=== PATIENT | male | born 1985 | race Caucasian/White ===

== ENCOUNTER → 2018-01-18 | Outpatient (CLI) | payer OTHER ==
--- NOTE | 2018-01-18 14:50 | XR ---
EXAMINATION TYPE: XR calcaneus 2V LT DATE OF EXAM: 01/18/2018 COMPARISON: NONE HISTORY: Left heel pain TECHNIQUE: 2 views of the left os calcis are submitted. FINDINGS: There is dorsal calcaneal spur identified. No plantar calcaneal spur is seen. No evidence f or fracture or osseous lesion. Soft tissues are unremarkable. IMPRESSION: Dorsal calcaneal spur.
== END ==
LOC: RADXRMAIN 14:20
PROVIDERS: ATTEND Internal Medicine
DX: M77.32 Calcaneal spur, left foot (principal)

== ENCOUNTER 2023-01-10 15:18 | Inpatient (IN) | payer OTHER ==
--- NOTE | 2023-01-10 15:52 | ED ---
Neuro HPI - General Chief Complaint: Neuro Symptoms/Deficit Stated Complaint: left arm weakness, Fall Time Seen by Provider: 01/10/23 15:35 Source: patient, RN notes reviewed Mode of arrival: ambulatory Limitations: no limitations - History of Present Illness Is the patient presenting with stroke symptoms?: Yes Initial Comments: 37-year-old male with a benign past medical history himself but a family history of CVA his dad had 2 CVAs in his 50's who presents with 2 days of left facial weakness difficulty with speech and difficulty with eating states he drools on the left side of his face also has difficulty moving his left arm which is not normal for him. The patient reported to triage nursing that he did have some trouble with his left leg this morning he did stumble it seemed to have some left leg weakness. No other symptoms reported no trauma no headache blurry vision nausea vomiting sweats or other symptoms. Additional information patient is supposed be on blood pressure medication but has not been taking them. Location: speech, left face, left arm, left leg - Related Data Allergies/Adverse Reactions: Allergies Allergy/AdvReac Type Severity Reaction Status Date / Time No Known Allergies Allergy Verified 01/10/23 15:27 Review of Systems ROS Statement: Those systems with pertinent positive or pertinent negative responses have been documented in the HPI. ROS Other: All systems not noted in ROS Statement are negative. General Exam - General Exam Comments Initial Comments: This a well-developed well-nourished awake alert oriented 4 male Limitations: no limitations General appearance: alert, anxious Head exam: Present: atraumatic, normocephalic, normal inspection Eye exam: Present: normal appearance, PERRL, EOMI. Absent: scleral icterus, conjunctival injection, periorbital swelling ENT exam: Present: other (Evidence of mild left facial asymmetry with some fore head involvement on the left) Neck exam: Present: normal inspection, full ROM, other (No stridor JVD or bruit). Absent: tenderness, meningismus, lymphadenopathy Respiratory exam: Present: normal lung sounds bilaterally. Absent: respiratory distress, wheezes, rales, rhonchi, stridor Cardiovascular Exam: Present: regular rate, normal rhythm, normal heart sounds. Absent: systolic murmur, diastolic murmur, rubs, gallop, clicks GI/Abdominal exam: Present: soft, normal bowel sounds. Absent: distended, tenderness, guarding, rebound, rigid Extremities exam: Present: normal inspection, normal capillary refill, other (Patient does demonstrate evidence of motor movement of his left upper extremity compared to the right he does demonstrate evidence of some drift greater effort to move the left arm against gravity.). Absent: full ROM, tenderness, pedal edema, joint swelling, calf tenderness Back exam: Present: normal inspection Neurological exam: Present: alert, oriented X3, motor sensory deficit ((Asymmetry is noted above left upper extremity weakness as noted) Psychiatric exam: Present: normal affect, normal mood Skin exam: Present: warm, dry, intact, normal color. Absent: rash Stroke MDM - Lab Data Result diagrams: 01/10/23 16:10 01/10/23 16:10 Lab Results 01/10/23 01/10/23 01/10/23 Range/Units 16:10 16:10 16:10 WBC 10.8 H (3.8-10.6) k/uL RBC 5.64 (4.30-5.90) m/uL Hgb 15.0 (13.0-17.5) gm/dL Hct 46.1 (39.0-53.0) % MCV 81.8 (80.0-100.0) fL MCH 26.6 (25.0-35.0) pg MCHC 32.5 (31.0-37.0) g/dL RDW 14.1 (11.5-15.5) % Plt Count 189 (150-450) k/uL MPV 8.0 Neutrophils % 75 % Lymphocytes % 19 % Monocytes % 4 % Eosinophils % 1 % Basophils % 0 % Neutrophils # 8.1 H (1.3-7.7) k/uL Lymphocytes # 2.0 (1.0-4.8) k/uL Monocytes # 0.5 (0-1.0) k/uL Eosinophils # 0.1 (0-0.7) k/uL Basophils # 0.0 (0-0.2) k/uL PT 10.0 (10.0-12.5) sec INR 0.9 (<1.2) APTT 25.4 (22.0-30.0) sec Sodium 137 (137-145) mmol/L Potassium 4.1 (3.5-5.1) mmol/L Chloride 102 (98-107) mmol/L Carbon Dioxide 25 (22-30) mmol/L Anion Gap 10 mmol/L BUN 10 (9-20) mg/dL Creatinine 0.72 (0.66-1.25) mg/dL Est GFR (CKD-EPI)AfAm >90 (>60 ml/min/1.73 sqM) Est GFR (CKD-EPI)NonAf >90 (>60 ml/min/1.73 sqM) Glucose 100 H (74-99) mg/dL Calcium 9.4 (8.4-10.2) mg/dL Magnesium 2.0 (1.6-2.3) mg/dL Total Bilirubin 0.5 (0.2-1.3) mg/dL AST 33 (17-59) U/L ALT 33 (4-49) U/L Alkaline Phosphatase 56 (38-126) U/L Creatine Kinase 192 H (55-170) U/L Troponin I (0.000-0.034) ng/mL Total Protein 7.4 (6.3-8.2) g/dL Albumin 4.2 (3.5-5.0) g/dL TSH 1.410 (0.465-4.680) mIU/L 01/10/23 Range/Units 16:10 WBC (3.8-10.6) k/uL RBC (4.30-5.90) m/uL Hgb (13.0-17.5) gm/dL Hct (39.0-53.0) % MCV (80.0-100.0) fL MCH (25.0-35.0) pg MCHC (31.0-37.0) g/dL RDW (11.5-15.5) % Plt Count (150-450) k/uL MPV Neutrophils % % Lymphocytes % % Monocytes % % Eosinophils % % Basophils % % Neutrophils # (1.3-7.7) k/uL Lymphocytes # (1.0-4.8) k/uL Monocytes # (0-1.0) k/uL Eosinophils # (0-0.7) k/uL Basophils # (0-0.2) k/uL PT (10.0-12.5) sec INR (<1.2) APTT (22.0-30.0) sec Sodium (137-145) mmol/L Potassium (3.5-5.1) mmol/L Chloride (98-107) mmol/L Carbon Dioxide (22-30) mmol/L Anion Gap mmol/L BUN (9-20) mg/dL Creatinine (0.66-1.25) mg/dL Est GFR (CKD-EPI)AfAm (>60 ml/min/1.73 sqM) Est GFR (CKD-EPI)NonAf (>60 ml/min/1.73 sqM) Glucose (74-99) mg/dL Calcium (8.4-10.2) mg/dL Magnesium (1.6-2.3) mg/dL Total Bilirubin (0.2-1.3) mg/dL AST (17-59) U/L ALT (4-49) U/L Alkaline Phosphatase (38-126) U/L Creatine Kinase (55-170) U/L Troponin I <0.012 (0.000-0.034) ng/mL Total Protein (6.3-8.2) g/dL Albumin (3.5-5.0) g/dL TSH (0.465-4.680) mIU/L - NIH Stroke Scale 1a. Level of Consciousness: (0) alert 1b. LOC Questions: (0) answers correctly 1c. LOC Commands: (0) performs tasks correctly 2. Best Gaze: (0) normal 3. Visual: (0) no visual loss 4. Facial Palsy: (2) partial paralysis 5a. Motor Arm Left: (1) drift 5b. Motor Arm Right: (0) no drift 6a. Motor Leg Left: (1) drift 6b. Motor Leg Right: (0) no drift 7. Limb Ataxia: (0) absent 8. Sensory: (0) normal 9. Best Language: (0) no aphasia 10. Dysarthria: (0) normal 11. Extinction/Inattention: (0) no abnormality - Medical Decision Making I did discuss findings with the patient also with Wilda bhandari for Dr. Diaz and also Dr. Holguin from neurology. Patient be admitted for inpatient evaluation treatmentWas pt. sent in by a medical professional or institution (, PA, COMPLAINT COORDINATOR, urgent care, hospital, or detention...) When possible be specific @ -No Did you speak to anyone other than the patient for history (EMS, parent, family, police, friend...)? What history was obtained from this source @ -No Did you review nursing and triage notes (agree or disagree)? Why? @ -I reviewed and agree with nursing and triage notes Were old charts reviewed (outside hosp., previous admission, EMS record, old EKG, old radiological studies, urgent care reports/EKG's, detention records)? Report findings @ -No old charts were reviewed Differential Diagnosis (chest pain, altered mental status, abdominal pain women, abdominal pain men, vaginal bleeding, weakness, fever, dyspnea, syncope, headache, dizziness, GI bleed, back pain, seizure, CVA, palpatations, mental health, musculoskeletal)? @ -CVA, Pollack's palsy with left-sided extremity weakness EKG interpreted by me (3pts min.). @ -As above EKG interpreted by me sinus rhythm with sinus arrhythmia the rate was 76. Interval 172 QRS duration 104 QT since QTC 378/409 incomplete right bundle-branch block moderate voltage criteria for LVH X-rays interpreted by me (1pt min.). @ -Chest x-ray interpreted by me no evidence of acute process CT interpreted by me (1pt min.). @ -CT brain and CT angios turbid by me no evidence of acute obstruction or processes U/S interpreted by me (1pt. min.). @ -None done What testing was considered but not performed or refused? (CT, X-rays, U/S, labs)? Why? @ -None What meds were considered but not given or refused? Why? @ -None Did you discuss the management of the patient with other professionals (professionals i.e. , PA, COMPLAINT COORDINATOR, lab, RT, psych nurse, rn social work, fire fighter [employer], teacher, bomb squad officer, telephonic nurse case manager)? Give summary @ -Wilda I refer Dr. Diaz Was smoking cessation discussed for >3mins.? @ -No Was critical care preformed (if so, how long)? @ -31 minutes Were there social determinants of health that impacted care today? How? (Homelessness, low income, unemployed, alcoholism, drug addiction, transportation, low edu. Level, literacy, decrease access to med. care, alf, rehab)? @ -No Was there de-escalation of care discussed even if they declined (Discuss DNR or withdrawal of care, Hospice)? DNR status @ -No What co-morbidities impacted this encounter? (DM, HTN, Smoking, COPD, CAD, Cancer, CVA, ARF, Chemo, Hep., AIDS, mental health diagnosis, sleep apnea, morbid obesity)? @ -Hypertension Was patient admitted / discharged? Hospital course, mention meds given and route, prescriptions, significant lab abnormalities, going to OR and other pertinent info. @ -hospital course the patient was admitted to the hospital with neurology consultation Undiagnosed new problem with uncertain prognosis? @ -CVA Drug Therapy requiring intensive monitoring for toxicity (Heparin, Nitro, Insulin, Cardizem)? @ -No Were any procedures done? @ -No Diagnosis/symptom? @ -Acute CVA, hypertension Acute, or Chronic, or Acute on Chronic? @ -Acute Uncomplicated (without systemic symptoms) or Complicated (systemic symptoms)? @ -default Side effects of treatment? @ -No Exacerbation, Progression, or Severe Exacerbation? @ -No Poses a threat to life or bodily function? How? (Chest pain, [place], [place], pneumonia, PE, COPD, DKA, ARF, appy, cholecystitis, CVA, Diverticulitis, Homicidal, Suicidal, threat to staff... and all critical care pts) @ -CVA, untreated hypertension - Radiology Data interpreted by me: CT plane brain negative for acute process CT angios again no acute process seen x-ray negative for acute process also interpreted by me - EKG Data -: EKG Interpreted by Me (Sinus rhythm a 76 MN interval 172 QRS duration 104 QT since QTC 370/49 inco) Past Medical History Past Medical History: Hypertension History of Any Multi-Drug Resistant Organisms: None Reported Past Surgical History: No Surgical Hx Reported Past Psychological History: No Psychological Hx Reported Smoking Status: Never smoker Past Alcohol Use History: None Reported Past Drug Use History: None Reported Course Vital Signs 01/10/23 01/10/23 15:24 17:32 Temperature 98 F 98.2 F Pulse Rate 82 67 Respiratory 18 16 Rate Blood Pressure 176/115 156/82 O2 Sat by Pulse 98 97 Oximetry - Reevaluation(s) Reevaluation #1: 01/10/23 18:20 I did reevaluate patient on multiple occasions no progression of his findings Reevaluation #2: 01/10/23 18:28 The patient was not a candidate for alteplase as the onset was 2 days ago and therefore not clinically indicated Critical Care Time Critical Care Time: Yes Total Critical Care Time: 31 Disposition Clinical Impression: Cerebrovascular accident (CVA) Disposition: ADMITTED IP TO THIS HOSP Condition: Stable Referrals: None,Stated [Primary Care Provider] - 1-2 days Decision Date: 01/10/23 Decision Time: 18:15
[2023-01-10 16:55] LABS: Basophils % (A) 0 %; Eosinophils # (A) 0.1 k/uL (0-0.7); Eosinophils % (A) 1 %; HCT 46.1 % (39.0-53.0); Lymphocytes % (A) 19 %; MCH 26.6 pg (25.0-35.0); MCHC 32.5 g/dL (31.0-37.0); MCV 81.8 fL (80.0-100.0); Monocytes # (A) 0.5 k/uL (0-1.0); Monocytes % (A) 4 %; Neutrophils # (A) 8.1 k/uL (1.3-7.7); Neutrophils % (A) 75 %; Platelet Count 189 k/uL (150-450); RBC 5.64 m/uL (4.30-5.90); RDW 14.1 % (11.5-15.5); WBC 10.8 k/uL (3.8-10.6)
[2023-01-10 16:58] LABS: ALT 33 U/L (4-49); AST 33 U/L (17-59); African American GFR (CKD) >90 (>60 ml/min/1.73 sqM); Albumin 4.2 g/dL (3.5-5.0); Alkaline Phosphatase 56 U/L (38-126); Anion Gap 10 mmol/L; Blood Urea Nitrogen 10 mg/dL (9-20); Calcium 9.4 mg/dL (8.4-10.2); Carbon Dioxide 25 mmol/L (22-30); Chloride 102 mmol/L (98-107); Creatine Kinase 192 U/L (55-170); Glucose 100 mg/dL (74-99); Non-African American GFR(CKD) >90 (>60 ml/min/1.73 sqM); Potassium 4.1 mmol/L (3.5-5.1); Sodium 137 mmol/L (137-145); Total Bilirubin 0.5 mg/dL (0.2-1.3); Total Protein 7.4 g/dL (6.3-8.2)
[2023-01-10 17:02] LABS: INR 0.9 (<1.2); Partial Thromboplastin Time 25.4 sec (22.0-30.0)
--- NOTE | 2023-01-10 17:24 | XR ---
EXAMINATION TYPE: XR chest 2V DATE OF EXAM: 01/10/2023 COMPARISON: NONE HISTORY: Altered mental status TECHNIQUE: Frontal and lateral views of the chest are obtained. FINDINGS: There is no focal air space opacity, pleural effusion, or pneumothorax seen. The cardiac silhouette size is within normal limits. There is a healed right clavicular fracture IMPRESSION: No acute cardiopulmonary process.
--- NOTE | 2023-01-10 17:26 | CT ---
EXAMINATION TYPE: CT brain wo con DATE OF EXAM: 01/10/2023 COMPARISON: None HISTORY: LEFT FACIAL DROOP CT DLP: 1178 mGycm. Automated Exposure Control for Dose Reduction was Utilized. TECHNIQUE: CT scan of the head is performed without contrast. FINDINGS: There is no acute intracranial hemorrhage, mass effect, or midline shift identified. The ventricles and sulci are within normal limits in size. The intraorbital contents are normal and symm etric. There is a mucous retention cyst or polyp in the right maxillary sinus otherwise the paranasal sinuse s and mastoid air cells are well aerated. IMPRESSION: No acute intracranial hemorrhage, mass effect, or midline shift is seen.
--- NOTE | 2023-01-10 17:29 | CT ---
EXAMINATION TYPE: CT angio head neck DATE OF EXAM: 01/10/2023 HISTORY: left sided facial droop COMPARISON: None CT DLP: 1024 mGycm. Automated Exposure Control for Dose Reduction was Utilized. TECHNIQUE: CTA scan of the head and neck is performed with IV Contrast, patient injected with 65 mL of Isovue 370, axial images are obtained, coronal and sagittal reformatted images are reviewed. 3D re constructed images are created on an independent workstation and reviewed. FINDINGS: The brachiocephalic origins are widely patent without significant stenosis. There is no stenosis of the common or internal carotid arteries within the neck. The left vertebral a rtery is dominant but there is no vertebral artery stenosis. Intracranially there is no segmental occlusion, sizable aneurysm sac or vascular malformation. IMPRESSION: No significant abnormality is seen. NASCET criteria was used in interpretation of this exam?
[2023-01-10] MEDS ORDERED: NALOXONE 0.4 MG/ML 1 ML VIAL IV PRN (18:56)
[2023-01-10] MEDS ORDERED: ASPIRIN 81 MG PO STA (18:58)
[2023-01-10] MEDS ORDERED: CLOPIDOGREL 75 MG TAB PO STA (18:58)
[2023-01-10] MEDS: SODIUM CHLORIDE 0.9% 1,000 ML IV SCH (20:08)
[2023-01-10] MEDS: ACETAMINOPHEN TAB 325 MG TAB PO PRN (23:38)
[2023-01-11] MEDS: ACETAMINOPHEN TAB 325 MG TAB PO PRN ×2 (05:21→17:57)
[2023-01-11] MEDS: ATORVASTATIN 40 MG TAB PO SCH (10:22)
[2023-01-11] MEDS: ASPIRIN 81 MG PO SCH (10:22)
--- NOTE | 2023-01-11 11:50 | P.HPIM ---
History of Present Illness H&P Date: 01/11/23 Chief Complaint: Weakness * 37-year-old gentleman with past medical history of hypertension, obesity presents to the emergency department with complaints of left-sided facial d elisha and dysarthria and dysphagia. Patient stated he had difficulty moving left and had drooling on the face. Patient stated that upon admission [employer] health insurance on 01/10/23 patient had gait issues as well as left-sided weakness. He denies following, he denies vision changes headache, nausea, vomiting, abdominal pain, diarrhea. Patient said he was at work and had left-sided weakness was unable to sign through his left hand issue and is usually left- handed * Workup initiated in ER including CT head which was negative for intracranial process * CT angina head and neck negative for acute abnormality * Workup initiated in ER included serum chemistries which were WBC of 10.8 hemoglobin 15 platelet count of 189. PT/INR 0.9 * Serum chemistry showed sodium 137 potassium 4.1, nicely 25 BUN 10 creatinine 0.72 glucose 100 troponin negative TSH 1.4 REVIEW OF SYSTEMS: Dysarthria, weakness, left arm weakness unable to ambulate CONSTITUTIONAL: No fever, no malaise, no fatigue. HEENT: No recent visual problems or hearing problems. Denied any sore throat. CARDIOVASCULAR: No chest pain, orthopnea, PND, no palpitations, no syncope. PULMONARY: No shortness of breath, no cough, no hemoptysis. GASTROINTESTINAL: No diarrhea, no nausea, no vomiting, no abdominal pain. NEUROLOGICAL: Weakness on left side, facial droop HEMATOLOGICAL: Denies any bleeding or petechiae. GENITOURINARY: Denies any burning micturition, frequency, or urgency. MUSCULOSKELETAL/RHEUMATOLOGICAL: Denies any joint pain, swelling, or any muscle pain. ENDOCRINE: Denies any polyuria or polydipsia. PHYSICAL EXAMINATION: GENERAL: The patient is alert and oriented x3, obesity HEENT: Pupils are round and equally reacting to light. EOMI. CARDIOVASCULAR: S1 and S2 present. No murmurs, rubs, or gallops. PULMONARY: Chest is clear to auscultation, no wheezing or crackles. ABDOMEN: Soft, nontender, nondistended, normoactive bowel sounds. No palpable organomegaly. MUSCULOSKELETAL: No joint swelling or deformity. EXTREMITIES: No cyanosis, clubbing, or pedal edema. NEUROLOGICAL: Motor strength is 4 x 5 left upper extremity, 3 x 5 left lower extremity, left-sided facial droop, tongue deviated to left, right upper extremitystrength is 5 x 5 Past Medical History Past Medical History: Hypertension History of Any Multi-Drug Resistant Organisms: None Reported Past Surgical History: No Surgical Hx Reported Past Psychological History: No Psychological Hx Reported Smoking Status: Never smoker Past Alcohol Use History: None Reported Past Drug Use History: None Reported Medications and Allergies Home Medications Medication Instructions Recorded Confirmed Type No Known Home Medications 01/10/23 01/10/23 History Allergies Allergy/AdvReac Type Severity Reaction Status Date / Time No Known Allergies Allergy Verified 01/10/23 19:42 Physical Exam Vitals: Vital Signs Temp Pulse Resp BP Pulse Ox 01/11/23 08:01 98.8 F 97 18 149/99 98 01/11/23 03:22 90 20 155/95 98 01/10/23 21:47 85 18 155/83 99 01/10/23 20:03 64 20 150/94 99 01/10/23 18:32 75 18 150/78 99 01/10/23 17:32 98.2 F 67 16 156/82 97 01/10/23 15:24 98 F 82 18 176/115 98 Intake and Output 01/10/23 01/11/23 01/11/23 22:59 06:59 14:59 Output Total 600 Balance -600 Output: Urine 600 Other: # Voids 2 Weight 149.685 kg Results CBC & Chem 7: 01/10/23 16:10 01/10/23 16:10 Labs: Abnormal Lab Results - Last 24 Hours (Table) 01/10/23 01/10/23 Range/Units 16:10 16:10 WBC 10.8 H (3.8-10.6) k/uL Neutrophils # 8.1 H (1.3-7.7) k/uL Glucose 100 H (74-99) mg/dL Creatine Kinase 192 H (55-170) U/L Assessment and Plan Assessment: Assessment and plan * Facial drooping, left-sided weakness respect acute CVA * Hypertension * Morbid obesity * Patient admitted to medical floor with neuro checks, acute CVA rule out. Neurology consulted * In regards to CVA, CT head CT angiogram head and neck was negative, continue aspirin and Lipitor, every 4 hours neuro checks * MRI brain and echocardiogram ordered * Follow-up on TSH HbA1c levels * Lovenox for DVT prophylaxis * CODE STATUS is full code
[2023-01-11 13:46] LABS: Chol/HDL Ratio 4.46 Ratio; LDL Cholesterol,Calculated 111.4 mg/dL (0.0-131.0)
[2023-01-11] MEDS ORDERED: CLOPIDOGREL 75 MG TAB PO STA (14:27)
[2023-01-11] MEDS: methocarbamoL 500 MG TAB PO PRN (17:57)
[2023-01-11] MEDS: FAMOTIDINE 20 MG TAB PO SCH (20:40)
[2023-01-11 21:34] LABS: Appearance,Urine Clear (Clear); Bilirubin,Urine Negative (Negative); Blood,Urine Negative (Negative); Color,Urine Colorless; Glucose,Urine (UA) Negative (Negative); Ketones,Urine Negative (Negative); Leukocyte Esterase,Urine Negative (Negative); Nitrite,Urine Negative (Negative); PH, Urine 6.5 (5.0-8.0); Protein,Urine Negative (Negative); Specific Gravity,Urine 1.008 (1.001-1.035); Urobilinogen,Urine <2.0 mg/dL (<2.0)
[2023-01-11] MEDS: SODIUM CHLORIDE 0.9% 1,000 ML IV SCH ×2 (23:50)
--- NOTE | 2023-01-12 08:15 | P.CNNES ---
History of Present Illness Consult date: 01/11/23 Requesting physician: Jakob Reilly Reason for Consult: CVA, 2 days ago History of Present Illness: Patient is a 37-year-old left-handed male with history of hypertension, currently not on any medication, came to the hospital yesterday at 3:18 PM for strokelike symptoms. Patient states that his symptoms started on , 01/08/2023 with weakness of the left arm. He felt it was not working properly. Also had some slurred speech on Thursday. On Thursday, he toppled over trying to feed the cat. He had problem with balance, and caught several times to prevent fall. As his symptoms persisted, his ex- insisted him to go to the hospital. He is also noticing droopiness of the left side of the mouth. His ex- states that it feels like he is crying when talking. He has a delayed response. He still can walk to the bathroom. He denies any problem with the vision. Vital signs arrival blood pressure 176/115, which improved to 156/82, pulse rate 82 temperature 98.0. Blood test shows WBC 10.8 mobility 15.0, normal platelets. PT/PTT is normal, CMP is normal, CK 192, troponin negative, TSH normal. CT head revealed no acute intracranial hemorrhage, mass effect or midline shift. I personally reviewed CT head, and my review, there is possibility of subacute hypodensity in the right internal capsule. Chest x-ray is normal. EKG shows sinus rhythm with sinus arrhythmia. Patient was not a candidate for TPA, as he has symptoms present for over 48 hours. There was no large vessel occlusion. Patient has hypertension, was given prescription medication by Dr. Guo, but patient stopped taking it after a month. He denies diabetes. He does not know about cholesterol. He smoked 1 pack per week for 4-5 years, quit 6-7 years ago. Drinks alcohol only socially. Smokes marijuana. Review of Systems Constitutional: Reports chills (Not now), Reports weight gain, Denies fever Eyes: denies blurred vision, denies diplopia, denies pain Ears: left: decreased hearing, tinnitus (for 3 years), deny: ear discharge Ears, nose, mouth and throat: Denies headache, Denies sore throat Cardiovascular: Denies chest pain, Denies shortness of breath Respiratory: Denies cough, Denies excessive sputum Gastrointestinal: Reports nausea, Denies abdominal pain, Denies diarrhea, Denies vomiting Genitourinary: Reports incontinence (Last 2-3 days difficult to hold), Reports urinary frequency Musculoskeletal: Reports low back pain, Denies myalgias, Denies neck pain Integumentary: Denies pruritus, Denies rash Neurological: Reports as per HPI Psychiatric: Reports anxiety, Denies depression Endocrine: Reports fatigue, Reports weight change Past Medical History Past Medical History: Hypertension History of Any Multi-Drug Resistant Organisms: None Reported Past Surgical History: No Surgical Hx Reported Past Psychological History: No Psychological Hx Reported Smoking Status: Never smoker Past Alcohol Use History: None Reported Past Drug Use History: None Reported Medications and Allergies Home Medications Medication Instructions Recorded Confirmed Type No Known Home Medications 01/10/23 01/10/23 History Allergies Allergy/AdvReac Type Severity Reaction Status Date / Time No Known Allergies Allergy Verified 01/10/23 19:42 Physical Examination - Vital Signs Vital Signs: Vital Signs Temp Pulse Pulse Resp BP BP Pulse Ox 01/11/23 08:01 98.8 F 97 18 149/99 98 01/11/23 08:00 92 16 170/85 98 01/11/23 03:22 90 20 155/95 98 01/10/23 21:47 85 18 155/83 99 01/10/23 20:03 64 20 150/94 99 01/10/23 18:32 75 18 150/78 99 01/10/23 17:32 98.2 F 67 16 156/82 97 01/10/23 15:24 98 F 82 18 176/115 98 Intake and Output 01/10/23 01/11/23 01/11/23 22:59 06:59 14:59 Intake Total 180 Output Total 600 Balance -600 180 Intake: Oral 180 Output: Urine 600 Other: # Voids 2 Weight 149.685 kg Patient is a young male, in no acute distress. Patient is alert awake oriented to time place and person. Speech is mildly dysarthric and language functions are normal. Patient can name and repeat very well. Attention, concentration and fund of knowledge is adequate. Patient frequently gets emotional. On cranial nerve examination, pupils are equal, round and reacting to light, visual baptiste are full on confrontation, with no neglect on double simultaneous stimulation. Extraocular muscles are intact with no nystagmus. Face has left facial asymmetry. His tongue protrudes to the midline. Palatal elevation and sensation normal, hearing and shoulder shrug normal, facial sensation normal. On muscle strength testing, there is left pronator drift. The strength is (right/left) deltoid 5/5-, biceps 5/4-, triceps 5/4 to 4-, engine boss 5/4, hip flexion 5/4, ankle dorsiflexion 5/5. Deep tendon reflexes are symmetric to all over and plantars is downgoing on the right, upgoing on the left. Sensory to touch and temperature is equal with no neglect on double simultaneous stimulation. Cerebellar function showed slight ataxia for [id number] and [id number] testing only on the left side. Tone and bulk of muscles normal. Gait deferred.. On general examination, there is no carotid bruit or murmur, S1-S2 audible. Chest is clear on consultation. Abdomen is soft nontender. No organomegaly, bowel sounds present. Peripheral pulses are present. No peripheral edema. Results - Laboratory Findings CBC and BMP: 01/10/23 16:10 01/10/23 16:10 Abnormal Lab Findings: Abnormal Labs 01/10/23 01/10/23 16:10 16:10 WBC 10.8 H Neutrophils # 8.1 H Glucose 100 H Creatine Kinase 192 H Assessment and Plan Assessment: * Acute ischemic stroke with left hemiparesis. CT head revealed possibility of subacute stroke involving the right internal capsule. Current NIH stroke scale is 6. * Hypertension, not treated * Medication noncompliance * X tobacco use Plan: * MRI of the brain without contrast, evaluate for acute CVA * 2-D echo with bubble study to rule out PFO * CTA head and neck showed: Showed no significant abnormality. * Fasting a.m. lipid panel * Hemoglobin A1c * Permissive hypertension for next 24-48 hours * Patient was given aspirin 324 mg and Plavix 75 mg in the ER. We will continue Aspirin 81 mg, and Plavix 75 mg daily for now. I will give loading dose of Plavix 225 mg now. * Neuro checks as per protocol. * Telemetry monitoring rule out any arrhythmia * PT, OT, speech therapy * DVT prophylaxis: Heparin 5000 units subcu every 8 hours * Dr. Martin Hennessy Will resume neurology service in the morning. Thank you for the consult.
[2023-01-12 08:24] LABS: HCT 46.1 % (39.0-53.0); HGB 14.7 gm/dL (13.0-17.5); MCH 26.4 pg (25.0-35.0); MCHC 31.9 g/dL (31.0-37.0); MCV 82.6 fL (80.0-100.0); Mean Platelet Volume 8.1; Platelet Count 173 k/uL (150-450); RBC 5.58 m/uL (4.30-5.90); RDW 14.2 % (11.5-15.5)
[2023-01-12] MEDS ORDERED: CLOPIDOGREL 75 MG TAB PO SCH (09:00)
[2023-01-12] MEDS: ENOXAPARIN 40 MG/0.4 ML SYRINGE SQ SCH (09:22)
[2023-01-12] MEDS: ASPIRIN 81 MG PO SCH (09:22)
[2023-01-12] MEDS: FAMOTIDINE 20 MG TAB PO SCH ×2 (09:22→20:46)
[2023-01-12] MEDS: ATORVASTATIN 40 MG TAB PO SCH (09:22)
[2023-01-12 09:54] LABS: African American GFR (CKD) >90 (>60 ml/min/1.73 sqM); Anion Gap 9 mmol/L; Blood Urea Nitrogen 9 mg/dL (9-20); Calcium 8.7 mg/dL (8.4-10.2); Carbon Dioxide 26 mmol/L (22-30); Chloride 102 mmol/L (98-107); Glucose 88 mg/dL (74-99); Non-African American GFR(CKD) >90 (>60 ml/min/1.73 sqM); Sodium 137 mmol/L (137-145)
--- NOTE | 2023-01-12 12:47 | CA ---
Transthoracic Echo Report Name: Óscar Donohue Age: 37 Gender: M : 1985 Exam Date: 01/12/2023 08:15 Exam Location: [facility] Ht (in): 72 Wt (lb): 330 Ordering Physician: Renetta Laws MD Attending/Referring Phys: Roping Tender Valentina Rogers RDCS Procedure CPT: Indications: Thrombus Cardiac Hx: Technical Quality: Technically difficult study Contrast 1: Total Dose (mL): Contrast 2: Total Dose (mL): MEASUREMENTS (Male / Female) Normal Values 2D ECHO LV Diastolic Diameter PLAX 5.1 cm 4.2 - 5.9 / 3.9 - 5.3 cm LV Systolic Diameter PLAX 3.6 cm IVS Diastolic Thickness 1.2 cm 0.6 - 1.0 / 0.6 - 0.9 cm LVPW Diastolic Thickness 1.4 cm 0.6 - 1.0 / 0.6 - 0.9 cm LV Relative Wall Thickness 0.5 RV Internal Dim ED PLAX 3.6 cm LA Systolic Diameter LX 4.0 cm 3.0 - 4.0 / 2.7 - 3.8 cm LV Diastolic Volume MOD BP 152.7 cm??? 67 - 155 / 56 - 104 cm??? LV Systolic Volume MOD BP 72.3 cm??? 22 - 58 / 19 - 49 cm??? LV Ejection Fraction MOD BP 52.7 % >= 55 % LV Cardiac Index MOD BP 1621.0 cm???/min???m??? LV Diastolic Volume MOD 4C 152.3 cm??? LV Systolic Volume MOD 4C 74.6 cm??? LV Ejection Fraction MOD 4C 51.0 % LV Cardiac Index MOD 4C 1566.6 cm???/min???m??? LV Diastolic Length 4C 9.1 cm LV Systolic Length 4C 7.6 cm LV Diastolic Volume MOD 2C 147.0 cm??? LV Systolic Volume MOD 2C 67.3 cm??? LV Ejection Fraction MOD 2C 54.2 % LV Cardiac Index MOD 2C 1606.3 cm???/min???m??? LV Diastolic Length 2C 8.1 cm LV Systolic Length 2C 7.1 cm LA Volume 60.6 cm??? 18 - 58 / 22 - 52 cm??? LA Volume Index 21.4 cm???/m??? 16 - 28 cm???/m??? DOPPLER AV Peak Velocity 147.3 cm/s AV Peak Gradient 8.7 mmHg AI Peak Velocity 327.7 cm/s AI Peak Gradient 42.9 mmHg AI Pressure Half Time 1482.1 ms MV Area PHT 3.1 cm??? Mitral E Point Velocity 102.3 cm/s Mitral A Point Velocity 55.2 cm/s Mitral E to A Ratio 1.9 MV Deceleration Time 247.2 ms MV E' Velocity 10.7 cm/s Mitral E to MV E' Ratio 9.5 TR Peak Velocity 234.4 cm/s TR Peak Gradient 22.0 mmHg Right Ventricular Systolic Press 26.4 mmHg FINDINGS Left Ventricle Left ventricular ejection fraction is estimated at 55-60 %. Left ventricular cavity size normal. Mildly increased septal wall thickness. Right Ventricle Mild right ventricular dilatation. Right ventricular systolic pressure within normal limits. Right Atrium Normal right atrial size. Left Atrium Mildly increased left atrial volume. Mildly increased left atrial area. Mitral Valve Structurally normal mitral valve. No mitral stenosis, regurgitation or prolapse. Aortic Valve Trileaflet aortic valve. Mild aortic regurgitation. Tricuspid Valve Structurally normal tricuspid valve. Mild tricuspid regurgitation. Pulmonic Valve Structurally normal pulmonic valve. No pulmonic regurgitation. Pericardium No pericardial effusion. Aorta Normal size aortic root and proximal ascending aorta. CONCLUSIONS Technically difficult study. Normal LV size and systolic function. LVEF estimated at 55% Wall motion abnormality cannot be commented upon due to poor image quality No significant valvular dysfunction Bubble study was not performed If high suspicion for TIA and need further cardiac investigation, would recommend DIANA Previewed by: Dr Rayo Lazar (Electronically Signed) Final Date: 12 January 2023 12:46
--- NOTE | 2023-01-12 13:03 | P.PN ---
Subjective Progress Note Date: 01/12/23 * 37-year-old gentleman with past medical history of hypertension, obesity presents to the emergency department with complaints of left-sided facial droop and dysarthria and dysphagia. Patient stated he had difficulty moving left and had drooling on the face. 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 He denies following, he denies vision changes headache, nausea, vomiting, abdominal pain, diarrhea. Patient said he was at work and had left-sided weakness was unable to sign through his left hand issue and is usually left-hewitt nded * Workup initiated in ER including CT head which was negative for intracranial process * CT angina head and neck negative for acute abnormality * Workup initiated in ER included serum chemistries which were WBC of 10.8 hemoglobin 15 platelet count of 189. PT/INR 0.9 * Serum chemistry showed sodium 137 potassium 4.1, nicely 25 BUN 10 creatinine 0.72 glucose 100 troponin negative TSH 1.4 * 01/12/23: Patient seen and evaluated bedside, patient left upper and lower extremity weakness has improved waiting to go down for MRI REVIEW OF SYSTEMS: Dysarthria, weakness, left arm weakness IMPROVED CONSTITUTIONAL: No fever, no malaise, no fatigue. HEENT: No recent visual problems or hearing problems. Denied any sore throat. CARDIOVASCULAR: No chest pain, orthopnea, PND, no palpitations, no syncope. PULMONARY: No shortness of breath, no cough, no hemoptysis. GASTROINTESTINAL: No diarrhea, no nausea, no vomiting, no abdominal pain. NEUROLOGICAL: Weakness on left side, facial droop HEMATOLOGICAL: Denies any bleeding or petechiae. GENITOURINARY: Denies any burning micturition, frequency, or urgency. MUSCULOSKELETAL/RHEUMATOLOGICAL: Denies any joint pain, swelling, or any muscle pain. ENDOCRINE: Denies any polyuria or polydipsia. Objective - Vital Signs Vital signs: Vital Signs Temp 99.3 F 01/11/23 20:21 Pulse 78 01/12/23 08:00 Resp 18 01/12/23 08:00 BP 144/88 01/12/23 08:00 Pulse Ox 96 01/12/23 08:00 FiO2 Intake & Output 01/11/23 01/12/23 01/12/23 18:59 06:59 18:59 Intake Total 180 118 Output Total 550 Balance 180 -432 Intake: Oral 180 118 Output: Urine 550 Other: Voiding Method Toilet Toilet Urinal Urinal # Voids 1 - Exam PHYSICAL EXAMINATION: GENERAL: The patient is alert and oriented x 3, obesity HEENT: Pupils are round and equally reacting to light. EOMI. CARDIOVASCULAR: S1 and S2 present. No murmurs, rubs, or gallops. PULMONARY: Chest is clear to auscultation, no wheezing or crackles. ABDOMEN: Soft, nontender, nondistended, normoactive bowel sounds. No palpable organomegaly. MUSCULOSKELETAL: No joint swelling or deformity. EXTREMITIES: No cyanosis, clubbing, or pedal edema. NEUROLOGICAL: Motor strength is 4 x 5 left upper extremity, 4 x 5 left lower extremity, left-sided facial droop, tongue deviated to left, right upper extremitystrength is 5 x 5 - Labs CBC & Chem 7: 01/12/23 07:10 01/12/23 07:10 Labs: Abnormal Lab Results - Last 24 Hours (Table) 01/11/23 01/12/23 Range/Units 07:47 07:10 C-Reactive Protein 1.0 H (<1.0) mg/dL HDL Cholesterol 39.00 L (40.00-60.00) mg/dL Assessment and Plan Assessment: Assessment and plan * Facial drooping, left-sided weakness respect acute CVA * Hypertension * Hyperlipidemia * Morbid obesity * Patient admitted to medical floor with neuro checks, acute CVA rule out. Neurology consulted * In regards to CVA, CT head CT angiogram head and neck was negative, continue aspirin and Lipitor, every 4 hours neuro checks * MRI brain pending and echocardiogram ordered shows ejection fraction 55% * Follow-up on TSH HbA1c levels * Lovenox for DVT prophylaxis * CODE STATUS is full code
[2023-01-12] MEDS: SODIUM CHLORIDE 0.9% 1,000 ML IV SCH (13:55)
--- NOTE | 2023-01-12 14:27 | MR ---
EXAMINATION TYPE: MR brain wo con DATE OF EXAM: 01/12/2023 12:30 PM CLINICAL INDICATION:Male, 37 years old with history of Neuro deficit, acute, stroke suspected; PHH, N euro deficit COMPARISON: CT 01/10/2023. TECHNIQUE: Multi planar, multi sequence imaging was performed through the brain including: T1, T2, In version recovery, Diffusion weighted imaging, and gradient echo imaging. No gadolinium was given. FINDINGS: There is an area of restricted diffusion peripherally within the right guerrero radiata with more central T2 shine through on diffusion weighted imaging. This area is predominantly high T2 signa l and lower T1 signal. Midline structures show no abnormality. The susceptibility weighted images do not reveal any evidence for micro-hemorrhage. The bone marrow signal is within normal limits. Paranasal sinuses and mastoid air cells: No significant paranasal sinus disease. Visualized orbits: Orbital contents are intact. IMPRESSION: Area of peripheral restricted diffusion within the right guerrero radiata measuring up to 2.3 x 2.1 cm with minimal surrounding vasogenic edema. Further workup with contrast-enhanced only imaging of the b rain recommended. Findings concerning for primary mass versus infection versus other etiologies.
--- NOTE | 2023-01-12 15:31 | P.PN ---
Subjective Progress Note Date: 01/12/23 I am seeing for the first time during this admission. Please refer to Dr. Holguin's note for further details. Patient is accompanied with his mother. Patient stated that this Thursday he noticed that he's having difficulty talking as well as riding a with the left hand. He states he has underlying history of hypertension as well as hypercholesterolemia. He denies any history of stroke. Denies any headache any nausea or vomiting. He continues to have weakness with the left and that. He has a brother with has a stroke in his 50s. He denies being on aspirin on a daily basis. Objective - Vital Signs Vital signs: Vital Signs Temp 98.0 F 01/12/23 12:00 Pulse 78 01/12/23 14:00 Resp 18 01/12/23 14:00 BP 146/90 01/12/23 12:00 Pulse Ox 96 01/12/23 12:00 FiO2 Intake & Output 01/11/23 01/12/23 01/12/23 18:59 06:59 18:59 Intake Total 180 236 Output Total 550 Balance 180 -314 Intake: Oral 180 236 Output: Urine 550 Other: Voiding Method Toilet Toilet Urinal Urinal # Voids 1 - Exam GENERAL: The patient is lying in bed and is not in acute distress. NEUROLOGICAL: Higher mental function: The patient is awake, alert, oriented to self, place and time. Patient is following commands. No aphasia and no neglect. Cranial nerves: The pupils are round, equal and reactive to light. Visual baptiste are full to confrontation throughout. Extraocular movement is intact no nystagmus is noted. Facial sensation is normal to touch throughout. The facial strength is normal throughout. Tongue is midline and moved [id number] without any difficulty. No dysarthria is noted. Shoulder shrug is normal bilaterally. Motor: The strength is4+ over the left upper extremity. Otherwise 5 over 5 throughout. Normal tone and bulk. Cerebellum: Finger to nose is slow on the left but no ataxia or dysmetria. Normal over the right upper. Sensation: Sensation is normal to touch throughout. - Labs CBC & Chem 7: 01/12/23 07:10 01/12/23 07:10 Labs: Abnormal Lab Results - Last 24 Hours (Table) 01/12/23 Range/Units 07:10 C-Reactive Protein 1.0 H (<1.0) mg/dL Assessment and Plan Assessment: This is a 37-year-old gentleman who since emergency department because of speech difficulty and the left upper extremity weakness that he noticed since this past Thursday. Acute left upper extremity weakness with transient speech difficulty. On MRI the brain has a circular lesion over the right guerrero radiata rule out mass. Does not appear like a stroke especially with the shape and there is no complete restriction diffusion with the DWI and ADC Underlying history of hypertension Underlying history of hypercholesterolemia Plan: I ordered MRI with contrast stat to rule out a mass. It seems that the patient was started on aspirin 81 mg daily and my colleague start the patient on Plavix 75 mg daily as well. Prior to this patient was not taking antiplatelet on a daily basis and was taken aspirin when necessary. Therefore I stop Plavix regarding the aspirin all also stop it until we get the MRI. Patient does have a brain mass then the recommend oncology consultation. As well as consider transferring the patient to tertiary Center for neurosurgical evaluation. Patient is on Lipitor 40 mg daily. Continue neuro checks Continue neuro checks We'll defer the rest of the medical management to primary team Plan discussed with the patient, his mother was at bedside and his nurse Time with Patient: Less than 30
--- NOTE | 2023-01-12 15:58 | MR ---
EXAMINATION TYPE: MR brain w con DATE OF EXAM: 01/12/2023 3:41 PM CLINICAL INDICATION:Male, 37 years old with history of ?brain mass. left arm weakness, Left arm weak ness, evaluate for brain mass. Contrast only. Abnormal prior Brain wo. COMPARISON: Same day MRI. TECHNIQUE: Limited postcontrast T1-weighted imaging performed in multiple planes. IV Contrast: 15 cc Gadavist FINDINGS: Area of concern in the right lower guerrero radiata/right periventricular/centrum semiovale t issue does demonstrate some enhancement. No additional abnormal areas of enhancement identified. The bone marrow signal is within normal limits. No abnormal postcontrast enhancement. Paranasal sinuses and mastoid air cells: Mild mucosal thickening. Visualized orbits: Orbital contents are intact. IMPRESSION: There is predominantly peripheral postcontrast enhancement of the right guerrero radiata/centrum semiov hero lesion favored to represent mass with other etiologies such as infection felt to be less likely g iven lack of vasogenic edema.
[2023-01-12] MEDS: methocarbamoL 500 MG TAB PO PRN (17:35)
[2023-01-13] MEDS: SODIUM CHLORIDE 0.9% 1,000 ML IV SCH ×3 (03:19→20:20)
[2023-01-13] MEDS: ATORVASTATIN 40 MG TAB PO SCH (08:27)
[2023-01-13] MEDS: FAMOTIDINE 20 MG TAB PO SCH (08:27)
[2023-01-13] MEDS: ENOXAPARIN 40 MG/0.4 ML SYRINGE SQ SCH (08:28)
--- NOTE | 2023-01-13 11:42 | P.PN ---
Subjective Progress Note Date: 01/13/23 * 37-year-old gentleman with past medical history of hypertension, obesity presents to the emergency department with complaints of left-sided facial droop and dysarthria and dysphagia. Patient stated he had difficulty moving left and had drooling on the face. 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 He denies following, he denies vision changes headache, nausea, vomiting, abdominal pain, diarrhea. Patient said he was at work and had left-sided weakness was unable to sign through his left hand issue and is usually left-hewitt nded * Workup initiated in ER including CT head which was negative for intracranial process * CT angina head and neck negative for acute abnormality * Workup initiated in ER included serum chemistries which were WBC of 10.8 hemoglobin 15 platelet count of 189. PT/INR 0.9 * Serum chemistry showed sodium 137 potassium 4.1, nicely 25 BUN 10 creatinine 0.72 glucose 100 troponin negative TSH 1.4 * 01/12/23: Patient seen and evaluated bedside, patient left upper and lower extremity weakness has improved waiting to go down for MRI * 01/13/23: Patient seen and evaluated bedside accompanied by his ex, patient gave information to discuss medical details in front of her. MRI brain obtained, neurology following, recommend further imaging suspect MS. We'll defer further management to neurology patient in agreement with current management continue patient on aspirin Plavix discontinued as well REVIEW OF SYSTEMS: Dysarthria improved, weakness, left arm weaknesssymptoms wax and wane CONSTITUTIONAL: No fever, no malaise, no fatigue. HEENT: No recent visual problems or hearing problems. Denied any sore throat. CARDIOVASCULAR: No chest pain, orthopnea, PND, no palpitations, no syncope. PULMONARY: No shortness of breath, no cough, no hemoptysis. GASTROINTESTINAL: No diarrhea, no nausea, no vomiting, no abdominal pain. NEUROLOGICAL: Weakness on left side, facial droop HEMATOLOGICAL: Denies any bleeding or petechiae. GENITOURINARY: Denies any burning micturition, frequency, or urgency. MUSCULOSKELETAL/RHEUMATOLOGICAL: Denies any joint pain, swelling, or any muscle pain. ENDOCRINE: Denies any polyuria or polydipsia. Objective - Vital Signs Vital signs: Vital Signs Temp 97.7 F 01/13/23 11:31 Pulse 64 01/13/23 11:31 Resp 20 01/13/23 11:31 BP 132/86 01/13/23 11:31 Pulse Ox 96 01/13/23 11:31 FiO2 Intake & Output 01/12/23 01/13/23 01/13/23 18:59 06:59 18:59 Intake Total 476 118 Output Total 550 Balance -74 118 Intake: Oral 476 118 Output: Urine 550 Other: Voiding Method Toilet Toilet Urinal Urinal # Voids 1 1 - Exam PHYSICAL EXAMINATION: GENERAL: The patient is alert and oriented x 3, obesity HEENT: Pupils are round and equally reacting to light. EOMI. CARDIOVASCULAR: S1 and S2 present. No murmurs, rubs, or gallops. PULMONARY: Chest is clear to auscultation, no wheezing or crackles. ABDOMEN: Soft, nontender, nondistended, normoactive bowel sounds. No palpable organomegaly. MUSCULOSKELETAL: No joint swelling or deformity. EXTREMITIES: No cyanosis, clubbing, or pedal edema. NEUROLOGICAL: Motor strength is 4 x 5 left upper extremity, 3 x 5 left lower extremity, left-sided facial droop, tongue deviated to left, right upper extrem itystrength is 5 x 5 - Labs CBC & Chem 7: 01/12/23 07:10 01/12/23 07:10 Assessment and Plan Assessment: Assessment and plan * Facial drooping, left-sided weakness suspect CVA versus intracranial lesion versus MS * Hypertension * Hyperlipidemia * Morbid obesity * Patient admitted to medical floor with neuro checks, acute CVA rule out. Neurology consulted, MRI brain completed MRI I cervical thoracic lumbar spine ordered * In regards to CVA, CT head CT angiogram head and neck was negative, continue aspirin and Lipitor, every 4 hours neuro checks * MRI brain pending and echocardiogram ordered shows ejection fraction 55% * Follow-up on TSH within normal limits * SCDs for DVT prophylaxis is Lovenox discontinued in anticipation of lumbar puncture * CODE STATUS is full code
[2023-01-13] MEDS: IOPAMIDOL CONTRAST (ORAL USE) VIAL PO PRN ×2 (13:31→14:22)
--- NOTE | 2023-01-13 13:44 | P.PN ---
Subjective Progress Note Date: 01/13/23 On follow-up with the patient and he is accompanied with family members and his ex-. Family he's been having the left-sided weakness mostly in the left arm with minimal left facial droop. Patient otherwise feels about the same. Objective - Vital Signs Vital signs: Vital Signs Temp 97.7 F 01/13/23 11:31 Pulse 64 01/13/23 11:31 Resp 20 01/13/23 11:31 BP 132/86 01/13/23 11:31 Pulse Ox 96 01/13/23 11:31 FiO2 Intake & Output 01/12/23 01/13/23 01/13/23 18:59 06:59 18:59 Intake Total 476 118 Output Total 550 225 Balance -74 -107 Intake: Oral 476 118 Output: Urine 550 225 Other: Voiding Method Toilet Toilet Urinal Urinal # Voids 1 1 - Exam GENERAL: The patient is lying in bed and is not in acute distress. NEUROLOGICAL: Higher mental function: The patient is awake, alert, oriented to self, place and time. Patient is following commands. No aphasia and no neglect. Cranial nerves: The pupils are round, equal and reactive to light. Visual baptiste are full to confrontation throughout. Extraocular movement is intact no nystagmus is noted. Facial sensation is normal to touch throughout. The facial strength is left nasolabial flattening Tongue is midline and moved [id number] without any difficulty. No dysarthria is noted. Shoulder shrug is normal bilaterally. Motor: The strength is4- over the left upper extremity. Left lower is 4+ to 5-. Otherwise 5 over 5 throughout. Normal tone and bulk. Cerebellum: Finger to nose is slow on the left but no ataxia or dysmetria. Normal over the right upper. Sensation: Sensation is normal to touch throughout. - Labs CBC & Chem 7: 01/12/23 07:10 01/12/23 07:10 Assessment and Plan Assessment: This is a 37-year-old gentleman who since emergency department because of speech difficulty and the left upper extremity weakness that he noticed since this past Thursday. Acute left sided weakness (upper > lower ), subtle left facial droop upper extremity weakness with transient speech difficulty. Has enhancement on right guerrero radiata adjacent lateral ventricle and has another small enhancement with other lesion on FLAIR. 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 Underlying history of hypertension Underlying history of hypercholesterolemia Plan: MR the brain without is reported as area of peripheral restricted diffusion within the right guerrero radiata measuring up to 2.32.1 cm with minimal surro unding vasogenic edema. Further workup with contrast enhancement only imaging of the brain recommended. Findings concerning for primary mass versus infection versus other etiologies. MRI the brain with gadolinium is reported as there is predominantly peripheral postcontrast enhancement of the guerrero radiata S last sent from semi-old lesion favor to represent mass with other etiologies such as infection felt to be less likely given the lack of vasogenic edema. I personally reviewed the MRI today with the reading radiologist (Dr. Tracy) and he felt there was another small lesion that was enhancing and he reviewed the image and and he felt there is a concerning for deymlinating disease. I ordered MRI of the cervical, thoracic and lumbar I stopped aspirin and Plavix since the patient does not have a stroke. I ordered a day, [id number] DNA, ESR, CRP, HIV, homocysteine, Lyme disease, syphilis, vitamin B12, rheumatoid factor, methylmalonic acid, HTLV 1, urine drug screen, Recommend CSF study but that he has to be off of Plavix for 5 days I started the patient on Solu-Medrol IV 500 mg every 12 hours for 3-5 days. Recommend sugar monitoring and will defer management to primary team. 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 Recommend CT abdomen and pelvis. PT OT and SLATE MIXER are consulted Continue neuro checks For GI prophylaxis: Started on IV protonix especially since on IV steroids. We'll defer the rest of the medical management to primary team Plan discussed with the patient, his family members were at bedside, primary attending Will continue to follow. Time with Patient: Less than 30
[2023-01-13] MEDS: methocarbamoL 500 MG TAB PO PRN (14:49)
--- NOTE | 2023-01-13 14:51 | P.CONS ---
History of Present Illness - Reason for Consult Consult date: 01/13/23 brain mass Requesting physician: Martin Hennessy - Chief Complaint lt sided weakness - History of Present Illness Mister Donohue is a pleasant 37-year-old male with a benign personal past medical history other than hypertension, which patient has not been properly taking his medications for. He has a family history of cardiovascular disease and CVA in his 50s, unknown if clotting disorder. He presented to the hospital with left facial weakness, difficulty getting out of his words, some slurring of the speech, some drooling on the left side with loss of strength in the left arm. This did progressed to include his left leg and the patient did nearly fall. His ex- is at the bedside and reports that patient's speech is less slurred but, patient is still having trouble finding words. When he does find words they are the correct words. Patient denies any vision changes, hearing changes, difficulty with swallowing, he does recognize that his response time is slow, the left arm is very weak but he can move a little bit, the left leg is moving better than previously, he denies chest pain or shortness of breath, abdominal pain or cramping, he has not had incontinence of stool or urine, he maintains sensation in his lower extremities. He denies any recent illnesses or infections, ear infections, sinus infections. On admission he had CT head without contrast that was neg for abn, CT angio head/neck neg, MRI without contrast reported a 2.3 x 2.1 cm mass at the rt guerrero radiata. MRI with contrast reported a mass, no size reported. Patient has been assessed by neurology, additional testing pending. Echo reported LVEF 55%, no bubble study was done. CBC, CMP and coags are all within normal limits. Review of Systems 10 point review of systems is negative except as stated in HPI. Ex- did help provide some of the patient's history. Past Medical History Past Medical History: Hypertension History of Any Multi-Drug Resistant Organisms: None Reported Past Surgical History: No Surgical Hx Reported Past Psychological History: No Psychological Hx Reported Smoking Status: Never smoker Past Alcohol Use History: None Reported Past Drug Use History: None Reported - Past Family History Father Family Medical History: Coronary Artery Disease (CAD), CVA/TIA Medications and Allergies Home Medications Medication Instructions Recorded Confirmed Type No Known Home Medications 01/10/23 01/10/23 History Allergies Allergy/AdvReac Type Severity Reaction Status Date / Time No Known Allergies Allergy Verified 01/10/23 19:42 Physical Exam Vitals: Vital Signs Temp Pulse Resp BP Pulse Ox 01/13/23 03:51 65 17 130/76 97 01/12/23 23:39 98.4 F 63 17 129/87 98 01/12/23 19:58 99.8 F H 70 18 133/90 95 01/12/23 16:00 76 16 143/88 96 01/12/23 14:00 78 18 01/12/23 12:00 98.0 F 76 18 146/90 96 Intake and Output 01/12/23 01/13/23 01/13/23 22:59 06:59 14:59 Intake Total 240 Balance 240 Intake: Oral 240 Other: Voiding Method Toilet Toilet Urinal Urinal # Voids 1 1 - Constitutional General appearance: cooperative, no acute distress, obese - EENT No thrush or lesions seen on the tongue Eyes: anicteric sclerae, EOMI ENT: hearing grossly normal - Neck Neck: no lymphadenopathy - Respiratory Respiratory: bilateral: CTA - Cardiovascular Rhythm: regular Heart sounds: normal: S1, S2 Abnormal Heart Sounds: no systolic murmur, no diastolic murmur, no rub, no S3 Gallop, no S4 Gallop, no click, no other leg Peripheral Edema: bilateral: None - Gastrointestinal General gastrointestinal: no absent bowel sounds, no decreased bowel sounds, no distended, no hepatomegaly, no hyperactive bowel sounds, normal bowel sounds, no organomegaly, no rigid, no scaphoid, soft, no splenomegaly, no tenderness, no umbilical hernia, no ventral hernia - Integumentary Integumentary: normal - Neurologic EOMs intact, patient is unable to puffiness cheeks, he is not able to forcefully protrude his tongue, he has left sided facial weakness. - Musculoskeletal Musculoskeletal: left sided weakness - Psychiatric Psychiatric: A&O x's 3, appropriate affect, intact judgment & insight Results CBC & Chem 7: 01/12/23 07:10 01/12/23 07:10 Labs: Abnormal Lab Results - Last 24 Hours (Table) 01/12/23 Range/Units 07:10 C-Reactive Protein 1.0 H (<1.0) mg/dL CT Scan - head: report reviewed (PT and CLL and CT without contrast reports reviewed) MRI - head: report reviewed (Reports reviewed with and without contrast) Assessment and Plan (1) Brain mass Current Visit: Yes Status: Acute Priority: High Code(s): G93.89 - OTHER SPECIFIED DISORDERS OF BRAIN SNOMED Code(s): 428297325 Plan: Brain mass -CT CAP ordered to assess for any other masses or lesions that may be present that could account for mass in the brain (metastatic disease), pending those results -If no other masses/lesions are seen, recommendation would be for patient to be sent to tertiary center for Neurosurgical evaluation and biopsy/resection -The above was discussed with the patient and his ex . All of their questions were answered to the best of my ability. They understand the recommendations.
--- NOTE | 2023-01-13 15:27 | CT ---
EXAMINATION TYPE: CT ChestAbdPelvis w con CT DLP: 3242.0 mGycm, Automated exposure control for dose reduction was used. DATE OF EXAM: 01/13/2023 3:20 PM COMPARISON: None. CLINICAL INDICATION:Male, 37 years old with history of brain mass; PHH, OBS FOR METS. BRAIN MASS Technique: Multiple axial images of the chest, abdomen, and pelvis were obtained. Two-dimensional cor onal and sagittal reconstructions were obtained. Contrast used:100 mL of Isovue 300 with IV Contrast, Oral contrast used: with Oral Contrast Findings: CHEST: LUNGS/ PLEURA: No focal consolidation, pneumothorax or pleural effusion. No pulmonary mass. AIRWAY: Patent and unremarkable. HEART: Size within normal limits. MEDIASTINUM: No gross evidence of adenopathy. VASCULATURE: No aortic aneurysm. MUSCULOSKELETAL: No acute osseous abnormalities. SOFT TISSUES/LYMPH NODES: Unremarkable. LOWER NECK: No significant findings. ABDOMEN: ABDOMEN LIVER: Diffusely hypoattenuating parenchyma. GALLBLADDER AND BILE DUCTS: Unremarkable. PANCREAS: Unremarkable. SPLEEN: Unremarkable. ADRENAL GLANDS: Unremarkable. KIDNEYS AND URETERS: No evidence of hydronephrosis or renal calculus. The ureters are unremarkable. PELVIS BLADDER: Unremarkable REPRODUCTIVE: Unremarkable. ABDOMEN & PELVIS STOMACH AND BOWEL: No evidence of bowel obstruction. PERITONEUM: No evidence of pneumoperitoneum or free fluid. VASCULATURE: No evidence of aortic aneurysm. MUSCULOSKELETAL: No acute osseous abnormalities LYMPH NODES: No gross evidence for lymphadenopathy. SOFT TISSUE/ABDOMINAL WALL: Fat-containing bilateral inguinal hernias. Fat-containing umbilical herni a. IMPRESSION: 1. No evidence for mass or lymphadenopathy. 2. Hepatic steatosis.
[2023-01-13 16:10] LABS: Amphetamine Screen,Urine Not Detected (NotDetected); Barbiturate Screen,Urine Not Detected (NotDetected); Benzodiazepines Screen,Urine Not Detected (NotDetected); Cocaine Screen,Urine Not Detected (NotDetected); Methadone Screen, Urine Not Detected (NotDetected); Opiate Screen,Urine Not Detected (NotDetected); Oxycodone Screen, Urine Not Detected (NotDetected); Phencyclidine Screen,Urine Not Detected (NotDetected); Tricyclic Antidepressant,Urine Not Detected (NotDetected); Urn Cannabinoid Scrn Detected (NotDetected)
--- NOTE | 2023-01-13 16:38 | MR ---
EXAMINATION TYPE: MR cervical spine wo/w con DATE OF EXAM: 01/13/2023 4:25 PM CLINICAL INDICATION:Male, 37 years old with history of mass or lesion on brain. R/o demyelination; , Mass or lesion on brain Evaluate for demyelination COMPARISON: None. TECHNIQUE: Multi planar, multi sequence imaging was performed utilizing: T1-weighted, T2-weighted, an d turbo inversion recovery imaging of the cervical spine. IV Contrast: 15 cc Gadavist (none if empty) FINDINGS: Motion limited exam. Alignment: The cervical vertebral bodies have preserved heights. Alignment is within normal limits gi fortino patient positioning. Bones: Bone signal is within normal limits. No abnormal bone marrow edema on inversion recovery seque nces. Cord: The spinal cord is unremarkable with regards to their signal intensity and morphology. No abnormal postcontrast enhancement. Discs: Intervertebral disc signal is maintained. C2-C3: No significant disc pathology. The spinal canal is patent. No neural foraminal stenosis. C3-C4: No significant disc pathology. The spinal canal is patent. Bilateral facet and uncovertebral joint arthropathy are present with mild bilateral neural foraminal stenosis. C4-C5: A disc osteophyte complex is present which minimally narrows the ventral subarachnoid space. Bilateral facet and uncovertebral joint arthropathy are present with mild bilateral neural foraminal stenosis. C5-C6: A disc osteophyte complex is present which minimally narrows the ventral subarachnoid space. Bilateral facet and uncovertebral joint arthropathy are present with moderate bilateral neural debi inal stenosis. C6-C7: No significant disc pathology. The spinal canal is patent. No neural foraminal stenosis. C7-T1: No significant disc pathology. The spinal canal is patent. No neural foraminal stenosis. Other: None. IMPRESSION: Motion limited exam. No evidence for mass or active demyelination. Cord signal is felt to be maintained. No evidence for s ignificant spinal canal or neural foraminal stenosis.
[2023-01-13 16:58] LABS: Glucose,Whole Blood 94 mg/dL (70-110)
[2023-01-13 17:11] LABS: Anti-DNA, DS unit <1.0 IU/mL; DNA Double-Stranded Negative (Negative); HIV 2 AB Non-Reactive (Non-Reactive); HIV AB P24 Non-Reactive (Non-Reactive); HIV P24 AG Non-Reactive (Non-Reactive)
[2023-01-13] MEDS: methylPREDNISolone SOD SUCCIN 500 MG in SODIUM CHLORIDE 0.9% 100 ML IVPB SCH ×2 (17:32→20:19)
[2023-01-13 17:37] LABS: Rheumatoid Factor, Qnt <15 IU/mL (0-15)
[2023-01-13] MEDS ORDERED: FAMOTIDINE 20 MG TAB PO SCH (21:00)
[2023-01-14 07:10] LABS: Glucose,Whole Blood 167 mg/dL (70-110)
[2023-01-14] MEDS: PANTOPRAZOLE 40 MG TABLET PO SCH (08:59)
[2023-01-14] MEDS: methylPREDNISolone SOD SUCCIN 500 MG in SODIUM CHLORIDE 0.9% 100 ML IVPB SCH ×2 (08:59→21:17)
[2023-01-14] MEDS: ATORVASTATIN 40 MG TAB PO SCH (08:59)
[2023-01-14] MEDS ORDERED: PANTOPRAZOLE 40 MG/10 ML VIAL IVP SCH (09:00)
[2023-01-14] MEDS ORDERED: DEXTROSE 50% SYRINGE 50 ML IVP PRN ×2 (11:08)
--- NOTE | 2023-01-14 11:08 | P.PN ---
Subjective Progress Note Date: 01/14/23 * 37-year-old gentleman with past medical history of hypertension, obesity presents to the emergency department with complaints of left-sided facial droop and dysarthria and dysphagia. Patient stated he had difficulty moving left and had drooling on the face. 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 He denies following, he denies vision changes headache, nausea, vomiting, abdominal pain, diarrhea. Patient said he was at work and had left-sided weakness was unable to sign through his left hand issue and is usually left-hewitt nded * Workup initiated in ER including CT head which was negative for intracranial process * CT angina head and neck negative for acute abnormality * Workup initiated in ER included serum chemistries which were WBC of 10.8 hemoglobin 15 platelet count of 189. PT/INR 0.9 * Serum chemistry showed sodium 137 potassium 4.1, nicely 25 BUN 10 creatinine 0.72 glucose 100 troponin negative TSH 1.4 * 01/12/23: Patient seen and evaluated bedside, patient left upper and lower extremity weakness has improved waiting to go down for MRI * 01/13/23: Patient seen and evaluated bedside accompanied by his ex, patient gave information to discuss medical details in front of her. MRI brain obtained, neurology following, recommend further imaging suspect MS. We'll defer further management to neurology patient in agreement with current management continue patient on aspirin Plavix discontinued as well * 01/14/23: Patient seen and evaluated bedside, MRI cervical and lumbar spine reviewed per report no evidence of demyelinating lesions,, continue patient on high-dose Solu-Medrol, neurology following will need to work with physical therapy. Per neurology suspect MS etiology of patient's symptoms REVIEW OF SYSTEMS: Dysarthria improved, weakness, left arm weaknesssymptoms I MPROVED CONSTITUTIONAL: No fever, no malaise, no fatigue. HEENT: No recent visual problems or hearing problems. Denied any sore throat. CARDIOVASCULAR: No chest pain, orthopnea, PND, no palpitations, no syncope. PULMONARY: No shortness of breath, no cough, no hemoptysis. GASTROINTESTINAL: No diarrhea, no nausea, no vomiting, no abdominal pain. NEUROLOGICAL: Weakness on left side, facial droop HEMATOLOGICAL: Denies any bleeding or petechiae. GENITOURINARY: Denies any burning micturition, frequency, or urgency. MUSCULOSKELETAL/RHEUMATOLOGICAL: Denies any joint pain, swelling, or any muscle pain. ENDOCRINE: Denies any polyuria or polydipsia. Objective - Vital Signs Vital signs: Vital Signs Temp 98.0 F 01/13/23 20:07 Pulse 67 01/14/23 04:22 Resp 18 01/14/23 04:22 BP 156/99 01/14/23 04:22 Pulse Ox 98 01/14/23 04:22 FiO2 Intake & Output 01/13/23 01/14/23 01/14/23 18:59 06:59 18:59 Intake Total 476 236 Output Total 225 Balance 251 236 Intake: Oral 476 236 Output: Urine 225 Other: Voiding Method Toilet Urinal # Voids 2 - Exam PHYSICAL EXAMINATION: GENERAL: The patient is alert and oriented x 3, obesity HEENT: Pupils are round and equally reacting to light. EOMI. CARDIOVASCULAR: S1 and S2 present. No murmurs, rubs, or gallops. PULMONARY: Chest is clear to auscultation, no wheezing or crackles. ABDOMEN: Soft, nontender, nondistended, normoactive bowel sounds. No palpable organomegaly. MUSCULOSKELETAL: No joint swelling or deformity. EXTREMITIES: No cyanosis, clubbing, or pedal edema. NEUROLOGICAL: Motor strength is 4 x 5 left upper extremity 4 x 5 left lower extremity, left-sided facial droop RESOLVED , tongue deviated to left RESOLVED , right upper extremitystrength is 5 x 5 Right lower extremity strength 5 x 5 - Labs CBC & Chem 7: 01/12/23 07:10 01/12/23 07:10 Labs: Abnormal Lab Results - Last 24 Hours (Table) 01/13/23 01/13/23 01/14/23 Range/Units 11:00 11:05 07:07 ESR 31 H (0-15) mm/Hr POC Glucose (mg/dL) 167 H (70-110) mg/dL U Marijuana (THC) Screen Detected H (NotDetected) Assessment and Plan Assessment: Assessment and plan * Facial drooping, left-sided weakness suspect MS * Hypertension * Hyperlipidemia * Morbid obesity * Neurology consulted, MRI brain completed MRI I cervical thoracic lumbar spine completed * In regards to concern for MS, CT head CT angiogram head and neck was negative, aspirin discontinued, continue Lipitor * Workup including ANAs, RF, dsDNA negative, negative for HIV * MRI brain completed and reviewed by neurology and echocardiogram ordered shows ejection fraction 55% * Follow-up on TSH within normal limits * SCDs for DVT prophylaxis is Lovenox discontinued in anticipation of lumbar puncture * CODE STATUS is full code
[2023-01-14 11:37] LABS: Glucose,Whole Blood 196 mg/dL (70-110)
[2023-01-14] MEDS: INSULIN ASPART (NovoLOG) 100 UNIT/ML VIAL SQ SCH ×2 (12:31→17:30)
[2023-01-14] MEDS: CYANOCOBALAMIN 500 MCG TAB PO SCH (12:31)
--- NOTE | 2023-01-14 13:56 | P.PN ---
Subjective Progress Note Date: 01/14/23 Principal diagnosis: Brain mass In follow-up today patient has no new neurological symptoms to report. He is able to raise his left arm up over his head. No numbness or tingling Objective - Vital Signs Vital signs: Vital Signs Temp 97.4 F L 01/14/23 08:00 Pulse 89 01/14/23 08:00 Resp 18 01/14/23 08:00 BP 149/81 01/14/23 08:00 Pulse Ox 93 L 01/14/23 08:00 FiO2 Intake & Output 01/13/23 01/14/23 01/14/23 18:59 06:59 18:59 Intake Total 476 236 Output Total 225 Balance 251 236 Intake: Oral 476 236 Output: Urine 225 Other: Voiding Method Toilet Toilet Urinal Urinal # Voids 2 - Constitutional General appearance: Present: cooperative, no acute distress, obese - EENT Eyes: Present: anicteric sclerae, EOMI ENT: Present: hearing grossly normal - Respiratory Details: Respirations even and unlabored at rest - Cardiovascular Details: Skin warm and dry to the touch, radial pulse palpable 2+ on the right - Peripheral edema leg Peripheral Edema: bilateral: None - Integumentary Integumentary Comment(s): Multiple well circumscribed dark spots on the lower extremities, patient reports the scutal bites - Neurologic Neurologic: Present: focal deficits (Left sided) - Musculoskeletal Musculoskeletal: Present: left sided weakness - Psychiatric Psychiatric: Present: A&O x's 3, appropriate affect, intact judgment & insight - Labs CBC & Chem 7: 01/12/23 07:10 01/12/23 07:10 Labs: Abnormal Lab Results - Last 24 Hours (Table) 01/13/23 01/13/23 01/14/23 Range/Units 11:00 11:05 07:07 ESR 31 H (0-15) mm/Hr POC Glucose (mg/dL) 167 H (70-110) mg/dL U Marijuana (THC) Screen Detected H (NotDetected) 01/14/23 Range/Units 11:35 ESR (0-15) mm/Hr POC Glucose (mg/dL) 196 H (70-110) mg/dL U Marijuana (THC) Screen (NotDetected) - Imaging and Cardiology CT scan - abdomen: report reviewed CT scan - chest: report reviewed CT scan - pelvis: report reviewed Assessment and Plan (1) Brain mass Current Visit: Yes Status: Acute Priority: High Code(s): G93.89 - OTHER SPECIFIED DISORDERS OF BRAIN SNOMED Code(s): 051076110 Plan: Brain mass -CT CAP Did not reveal any underlying masses or lesions that could account for mass in the brain (metastatic disease) -Recommendation from an Oncology standpoint is for transfer to tertiary center for Neurosurgical evaluation and biopsy/resection -Discussed recommendations with the patient. Did let pt know that pending recommendations of Neurology attests: I have seen and examined patient, performed H&P, developed impression and plan of care. Discussed with dictator. Agree with documentation, dictated as a scribe.
--- NOTE | 2023-01-14 14:33 | P.PN ---
Subjective Progress Note Date: 01/14/23 Patient felt she's doing much better today since he received steroids. He feels he is walking better today compared to yesterday or the day before. Denies of any other new neurological issues. Objective - Vital Signs Vital signs: Vital Signs Temp 97.4 F L 01/14/23 08:00 Pulse 89 01/14/23 08:00 Resp 18 01/14/23 08:00 BP 149/81 01/14/23 08:00 Pulse Ox 93 L 01/14/23 08:00 FiO2 Intake & Output 01/13/23 01/14/23 01/14/23 18:59 06:59 18:59 Intake Total 476 236 Output Total 225 Balance 251 236 Intake: Oral 476 236 Output: Urine 225 Other: Voiding Method Toilet Toilet Urinal Urinal # Voids 2 - Exam GENERAL: The patient is lying in bed and is not in acute distress. NEUROLOGICAL: Higher mental function: The patient is awake, alert, oriented to self, place and time. Patient is following commands. No aphasia and no neglect. Cranial nerves: The pupils are round, equal and reactive to light. Visual baptiste are full to confrontation throughout. Extraocular movement is intact no nystagmus is noted. Facial sensation is normal to touch throughout. The facial strength is subtle left nasolabial flattening Tongue is midline and moved [id number] without any difficulty. No dysarthria is noted. Shoulder shrug is normal bilaterally. Motor: The strength is4+over the left upper extremity. Left lower is 5- to 5/5 . Otherwise 5 over 5 throughout. Normal tone and bulk. Cerebellum: Finger to nose is minimally slow on the left but no ataxia or dysmetria. Normal over the right upper. Sensation: Sensation is normal to touch throughout. - Labs CBC & Chem 7: 01/12/23 07:10 01/12/23 07:10 Labs: Abnormal Lab Results - Last 24 Hours (Table) 01/13/23 01/13/23 01/14/23 Range/Units 11:00 11:05 07:07 ESR 31 H (0-15) mm/Hr POC Glucose (mg/dL) 167 H (70-110) mg/dL U Marijuana (THC) Screen Detected H (NotDetected) 01/14/23 Range/Units 11:35 ESR (0-15) mm/Hr POC Glucose (mg/dL) 196 H (70-110) mg/dL U Marijuana (THC) Screen (NotDetected) Assessment and Plan Assessment: This is a 37-year-old gentleman who since emergency department because of speech difficulty and the left upper extremity weakness that he noticed since this past Thursday. Acute left sided weakness (upper > lower ), subtle left facial droop upper extr emity weakness with transient speech difficulty. Has enhancement on right guerrero radiata adjacent lateral ventricle and has another small enhancement in corpus collasum. 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 Seems Tumefactive Multiple Sclerosis---feels doing better today since steroids. Underlying history of hypertension Underlying history of hypercholesterolemia Plan: * MR the brain without is reported as area of peripheral restricted diffusion within the right guerrero radiata measuring up to 2.32.1 cm with minimal rosalind rounding vasogenic edema. Further workup with contrast enhancement only imaging of the brain recommended. Findings concerning for primary mass versus infection versus other etiologies. * MRI the brain with gadolinium is reported as there is predominantly peripheral postcontrast enhancement of the guerrero radiata S last sent from semi-old lesion favor to represent mass with other etiologies such as infection felt to be less likely given the lack of vasogenic edema. I personally reviewed the MRI today with the reading radiologist (Dr. Tracy) and he felt there was another small lesion that was enhancing and he reviewed the image and and he felt there is a concerning for deymlinating disease. Also there is an addendum by Dr. Abebe initial reading radiologist in which she stated that upon further review with there is bilateral increased signal within the splenium of the corpus callosum. Other differential consideration given multiple lesion within the brain including demyelination which is felt to be higher in the differential given multiple lesions. The larger the diffusion restriction lesion is felt to be active demyelination the setting of demyelination. * MRI the cervical spine is reported as motion limited exam. No evidence for mass or active demyelination. Cord signal is felt to be maintained. No evidence for significant spinal canal or neuroforaminal stenosis. * Pending MRI thoracic and lumbar. * I stopped aspirin and Plavix since the patient does not have a stroke. * KHLOE is negative, Anti-dsDNA is negative, RF <15, ESR: 31, CRP:1.0 and repeat is 0.6, HIV is non reactive , homocysteine: 13.4, Lyme disease is negative, syphilis is non reactive. * vitamin B12: 368 * Pending Methylmalonic acid, HTLV 1 * Recommend CSF study but that he has to be off of Plavix for 5 days * I started the patient on Solu-Medrol IV 500 mg every 12 hours for 3-5 days (started on 01/13/23). Recommend sugar monitoring and will defer management to primary team. * Oncology team is on board. They ordered CT abdomen and pelvis which is reported as no evidence for mass or lymphadenopathy. Hepatic steatosis. They recommended transfer for neurosurgical evaluation for biopsy of the lesion. 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 From a neurologic perspective no need for urgent neurosurgical evaluation and will speak with the oncologist team since unsure if they know about the update of the MRI Brain result. * PT OT and SOLAR SALES MANAGER are consulted * Continue neuro checks * For GI prophylaxis: Started on IV protonix especially since on IV steroids. * We'll defer the rest of the medical management to primary team Plan discussed with the patient and primary attending Will continue to follow. Time with Patient: Less than 30
[2023-01-14 14:47] LABS: C-ANCA <1:20 Titer (<1:20)
[2023-01-14 16:00] LABS: Glucose,Whole Blood 165 mg/dL (70-110)
[2023-01-14] MEDS: SODIUM CHLORIDE 0.9% 1,000 ML IV SCH (17:31)
[2023-01-14 19:19] LABS: Cardiolipin Ab IgG Interp Negative (Negative); Cardiolipin Ab IgM Interp Negative (Negative); Cardiolipin IgA Antibody <2.0 U/mL
[2023-01-14 19:51] LABS: Glucose,Whole Blood 250 mg/dL (70-110)
[2023-01-14] MEDS: ACETAMINOPHEN TAB 325 MG TAB PO PRN (21:17)
[2023-01-14 23:43] LABS: Glucose,Whole Blood 204 mg/dL (70-110)
[2023-01-15 05:52] LABS: Glucose,Whole Blood 164 mg/dL (70-110)
[2023-01-15] MEDS: INSULIN ASPART (NovoLOG) 100 UNIT/ML VIAL SQ SCH ×4 (05:57→17:33)
[2023-01-15] MEDS: SODIUM CHLORIDE 0.9% 1,000 ML IV SCH ×2 (06:00→23:34)
[2023-01-15] MEDS: PANTOPRAZOLE 40 MG TABLET PO SCH (09:58)
[2023-01-15] MEDS: CYANOCOBALAMIN 500 MCG TAB PO SCH (09:58)
[2023-01-15] MEDS: methylPREDNISolone SOD SUCCIN 500 MG in SODIUM CHLORIDE 0.9% 100 ML IVPB SCH ×2 (09:58→20:42)
[2023-01-15] MEDS: ATORVASTATIN 40 MG TAB PO SCH (09:58)
[2023-01-15] MEDS ORDERED: LORazepam 2 MG/ML INJ IV PRN (11:41)
--- NOTE | 2023-01-15 11:41 | P.PN ---
Subjective Progress Note Date: 01/15/23 * 37-year-old gentleman with past medical history of hypertension, obesity presents to the emergency department with complaints of left-sided facial droop and dysarthria and dysphagia. Patient stated he had difficulty moving left and had drooling on the face. Patient stated that upon admission eap clinician on 01/10/23 patient had gait issues as well as left-sided weakness. He denies following, he denies vision changes headache, nausea, vomiting, abdominal pain, diarrhea. Patient said he was at work and had left-sided weakness was unable to sign through his left hand issue and is usually left-hewitt nded * Workup initiated in ER including CT head which was negative for intracranial process * CT angina head and neck negative for acute abnormality * Workup initiated in ER included serum chemistries which were WBC of 10.8 hemoglobin 15 platelet count of 189. PT/INR 0.9 * Serum chemistry showed sodium 137 potassium 4.1, nicely 25 BUN 10 creatinine 0.72 glucose 100 troponin negative TSH 1.4 * 01/12/23: Patient seen and evaluated bedside, patient left upper and lower extremity weakness has improved waiting to go down for MRI * 01/13/23: Patient seen and evaluated bedside accompanied by his ex, patient gave information to discuss medical details in front of her. MRI brain obtained, neurology following, recommend further imaging suspect MS. We'll defer further management to neurology patient in agreement with current management continue patient on aspirin Plavix discontinued as well * 01/14/23: Patient seen and evaluated bedside, MRI cervical and lumbar spine reviewed per report no evidence of demyelinating lesions,, continue patient on high-dose Solu-Medrol, neurology following will need to work with physical therapy. Per neurology suspect MS etiology of patient's symptoms * 01/15/23: Patient seen and evaluated bedside, left-sided weakness has improved. plan discussed with patient in detail explained at this time neurology would want to watch him and no need for transfer. MRI thoracic and lumbar spine reviewed, care plan discussed with Dr. henriquez who is in agreement. Continue patient on high-dose steroid. Continue correctional insulin while on steroids REVIEW OF SYSTEMS: Dysarthria improved, weakness, left arm weaknesssymptoms IMPROVED CONSTITUTIONAL: No fever, no malaise, no fatigue. HEENT: No recent visual problems or hearing problems. Denied any sore throat. CARDIOVASCULAR: No chest pain, orthopnea, PND, no palpitations, no syncope. PULMONARY: No shortness of breath, no cough, no hemoptysis. GASTROINTESTINAL: No diarrhea, no nausea, no vomiting, no abdominal pain. NEUROLOGICAL: Weakness on left side, facial droop HEMATOLOGICAL: Denies any bleeding or petechiae. GENITOURINARY: Denies any burning micturition, frequency, or urgency. MUSCULOSKELETAL/RHEUMATOLOGICAL: Denies any joint pain, swelling, or any muscle pain. ENDOCRINE: Denies any polyuria or polydipsia. Objective - Vital Signs Vital signs: Vital Signs Temp 97.5 F L 01/15/23 08:00 Pulse 80 01/15/23 08:00 Resp 16 01/15/23 08:00 BP 131/76 01/15/23 08:00 Pulse Ox 92 L 01/15/23 08:00 FiO2 Intake & Output 01/14/23 01/15/23 01/15/23 18:59 06:59 18:59 Intake Total 1056 360 118 Balance 1056 360 118 Intake: Intake, IV Titration 100 Amount methylPREDNISolone SOD 100 SUCCIN 500 mg In Sodium Chloride 0.9% 100 ml @ 100 mls/hr IVPB Q12HR [facility] Rx#:[id number] Oral 956 360 118 Other: Voiding Method Toilet Toilet Toilet Urinal Urinal Urinal - Exam PHYSICAL EXAMINATION: GENERAL: The patient is alert and oriented x 3, obesity HEENT: Pupils are round and equally reacting to light. EOMI. CARDIOVASCULAR: S1 and S2 present. No murmurs, rubs, or gallops. PULMONARY: Chest is clear to auscultation, no wheezing or crackles. ABDOMEN: Soft, nontender, nondistended, normoactive bowel sounds. No palpable organomegaly. MUSCULOSKELETAL: No joint swelling or deformity. EXTREMITIES: No cyanosis, clubbing, or pedal edema. NEUROLOGICAL: Motor strength is 4 x 5 left upper extremity 4 x 5 left lower extremity, left-sided facial droop RESOLVED , tongue deviated to left RESOLVED , right upper extremitystrength is 5 x 5 Right lower extremity strength 5 x 5 - Labs CBC & Chem 7: 01/12/23 07:10 01/12/23 07:10 Labs: Abnormal Lab Results - Last 24 Hours (Table) 01/14/23 01/14/23 01/14/23 Range/Units 15:59 19:48 23:42 POC Glucose (mg/dL) 165 H 250 H 204 H (70-110) mg/dL 01/15/23 Range/Units 05:50 POC Glucose (mg/dL) 164 H (70-110) mg/dL Assessment and Plan Assessment: Assessment and plan * Facial drooping, left-sided weakness suspect MS * Hypertension * Hyperlipidemia * Morbid obesity * Neurology consulted, MRI brain completed MRI cervical thoracic lumbar spine completed, MRI thoracic and lumbar spine with and without contrast ordered>> patient initiated on high-dose steroids * In regards to concern for MS, CT head CT angiogram head and neck was negative, aspirin discontinued, continue Lipitor * Workup including ANAs, RF, dsDNA negative, negative for HIV, workup negative for Lyme * MRI brain completed and reviewed by neurology and echocardiogram ordered shows ejection fraction 55% * Follow-up on TSH within normal limits * SCDs for DVT prophylaxis is Lovenox discontinued in anticipation of lumbar puncture time to be determined by neurology * CODE STATUS is full code
[2023-01-15 12:02] LABS: Glucose,Whole Blood 171 mg/dL (70-110)
[2023-01-15 12:02] LABS: APTT 36 Sec(s) (<43); Dilute Russell Viper Venom 32 Sec(s) (<44)
[2023-01-15 12:32] VITALS: BMI 44.7
--- NOTE | 2023-01-15 13:36 | P.PN ---
Subjective Progress Note Date: 01/15/23 On follow-up with the patient and he feels he is doing about the same or slightly better compared to the initial presentation. He is walking without any assistance. Denies of any new neurological issues. Objective - Vital Signs Vital signs: Vital Signs Temp 97.5 F L 01/15/23 08:00 Pulse 95 01/15/23 12:00 Resp 16 01/15/23 08:00 BP 172/91 01/15/23 12:00 Pulse Ox 94 L 01/15/23 12:00 FiO2 Intake & Output 01/14/23 01/15/23 01/15/23 18:59 06:59 18:59 Intake Total 1056 360 458 Balance 1056 360 458 Weight 149.685 kg Intake: Intake, IV Titration 100 100 Amount methylPREDNISolone SOD 100 100 SUCCIN 500 mg In Sodium Chloride 0.9% 100 ml @ 100 mls/hr IVPB Q12HR [facility] Rx#:[id number] Oral 956 360 358 Other: Voiding Method Toilet Toilet Toilet Urinal Urinal Urinal # Voids 1 - Exam GENERAL: The patient is lying in bed and is not in acute distress. NEUROLOGICAL: Higher mental function: The patient is awake, alert, oriented to self, place and time. Patient is following commands. No aphasia and no neglect. Cranial nerves: The pupils are round, equal and reactive to light. Visual baptiste are full to confrontation throughout. Extraocular movement is intact no nystagmus is noted. Facial sensation is normal to touch throughout. The facial strength is subtle left nasolabial flattening Tongue is midline and moved [id number] without any difficulty. No dysarthria is noted. Shoulder shrug is normal bilaterally. Motor: The strength is4+over the left upper extremity. Left lower is 5/5 . Otherwise 5 over 5 throughout. Normal tone and bulk. Cerebellum: Finger to nose is minimally slow on the left but no ataxia or dysmetria. Normal over the right upper. Sensation: Sensation is normal to touch throughout. - Labs CBC & Chem 7: 01/12/23 07:10 01/12/23 07:10 Labs: Abnormal Lab Results - Last 24 Hours (Table) 01/14/23 01/14/23 01/14/23 Range/Units 15:59 19:48 23:42 POC Glucose (mg/dL) 165 H 250 H 204 H (70-110) mg/dL 01/15/23 01/15/23 Range/Units 05:50 12:00 POC Glucose (mg/dL) 164 H 171 H (70-110) mg/dL Assessment and Plan Assessment: This is a 37-year-old gentleman who since emergency department because of speech difficulty and the left upper extremity weakness that he noticed since this past Thursday. Acute left sided weakness (upper > lower ), subtle left facial droop upper extremity weakness with transient speech difficulty. Has enhancement on right guerrero radiata adjacent lateral ventricle and has another small enhancement in corpus collasum. 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 Seems Tumefactive Multiple Sclerosis---feels doing better today since steroids. Underlying history of hypertension Underlying history of hypercholesterolemia Plan: * MR the brain without is reported as area of peripheral restricted diffusion within the right guerrero radiata measuring up to 2.32.1 cm with minimal surrounding vasogenic edema. Further workup with contrast enhancement only imaging of the brain recommended. Findings concerning for primary mass versus infection versus other etiologies. * MRI the brain with gadolinium is reported as there is predominantly peripheral postcontrast enhancement of the guerrero radiata S last sent from semi-old lesion favor to represent mass with other etiologies such as infection felt to be less likely given the lack of vasogenic edema. I personally reviewed the MRI today with the reading radiologist (Dr. Tracy) and he felt there was another small lesion that was enhancing and he reviewed the image and and he felt there is a concerning for deymlinating disease. Also there is an addendum by Dr. Abebe initial reading radiologist in which she stated that upon further review with there is bilateral increased signal within the splenium of the corpus callosum. Other differential consideration given multiple lesion within the brain including demyelination which is felt to be higher in the differential given multiple lesions. The larger the diffusion restriction lesion is felt to be active demyelination the setting of demyelination. * MRI the cervical spine is reported as motion limited exam. No evidence for mass or active demyelination. Cord signal is felt to be maintained. No evidence for significant spinal canal or neuroforaminal stenosis. * Pending MRI thoracic and lumbar. * I stopped aspirin and Plavix since the patient does not have a stroke. * KHLOE is negative, Anti-dsDNA is negative, RF <15, ESR: 31, CRP:1.0 and repeat is 0.6, HIV is non reactive , homocysteine: 13.4, Lyme disease is negative, syphilis is non reactive, C and P-ANCA are <1:20, cardiolipin ab are negative, * vitamin B12: 368 * Pending Methylmalonic acid, HTLV 1 * Recommend CSF study but that he has to be off of Plavix for 5 days * I started the patient on Solu-Medrol IV 500 mg every 12 hours for 5 days (started on 01/13/23) and today is day#3/5. Recommend sugar monitoring and will defer management to primary team. * Oncology team is on board. They ordered CT abdomen and pelvis which is reported as no evidence for mass or lymphadenopathy. Hepatic steatosis. They recommended transfer for neurosurgical evaluation for biopsy of the lesion. 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 From a neurologic perspective no need for urgent neurosurgical evaluation and will speak with the oncologist team since unsure if they know about the update of the MRI Brain result. * PT OT and LANDSCAPING SUPERVISOR are consulted * Continue neuro checks * For GI prophylaxis: Started on IV protonix especially since on IV steroids. * We'll defer the rest of the medical management to primary team Plan discussed with the patient and primary attending Will continue to follow. Time with Patient: Less than 30
[2023-01-15] MEDS ORDERED: LORazepam 2 MG/ML INJ IV ONE (14:36)
--- NOTE | 2023-01-15 16:15 | MR ---
EXAMINATION TYPE: MR thoracic spine wo/w con DATE OF EXAM: 01/15/2023 2:37 PM CLINICAL INDICATION:Male, 37 years old with history of back pain, rule out mass; PHH, Mass or lesion on brain Evaluate for demyelination. COMPARISON: 01/13/2023 TECHNIQUE: Multi planar, multi sequence imaging was performed utilizing: T1-weighted, short-tau inver adalberto recovery and T2-weighted of the thoracic spine. IV Contrast: 15 cc Gadobutrol (none if empty) FINDINGS: Alignment: Alignment is within normal limits. Vertebral bodies have preserved heights. Spinal cord: Motion limits evaluation. Spinal cord is within normal limits for signal. No abnormal po stcontrast enhancement. Discs: Intervertebral disc signal is maintained. No evidence of significant spinal canal or neural fo raminal stenosis. There is no evidence of extradural defects or central spinal canal narrowing at any thoracic vertebral body level Osseous structures: No abnormal bony edema on inversion recovery sequences. Mild degeneration worse a t T9-T10 with osteophyte formation disc space tearing. No abnormal postcontrast enhancement. Scattere d facet joint arthropathy is present. IMPRESSION: Motion limited exam. Degeneration changes of the spine worse at T9-T10 with disc space narrowing. No abnormal bony edema i dentified. No abnormal postcontrast enhancement. No evidence for significant spinal canal or neural f oraminal stenosis.
[2023-01-15 18:01] LABS: Glucose,Whole Blood 247 mg/dL (70-110)
--- NOTE | 2023-01-15 19:32 | P.PN ---
Subjective Progress Note Date: 01/15/23 Principal diagnosis: Brain mass In follow-up today patient has no new neurological symptoms to report, some improvement in his left sided weakness, he is able to eat and drink without dysphagia, he feels really tired. No numbness or tingling, incontinence. Objective - Vital Signs Vital signs: Vital Signs Temp 97.8 F 01/15/23 17:04 Pulse 78 01/15/23 17:04 Resp 16 01/15/23 17:04 BP 142/75 01/15/23 17:04 Pulse Ox 92 L 01/15/23 17:04 FiO2 Intake & Output 01/15/23 01/15/23 01/16/23 06:59 18:59 06:59 Intake Total 360 1178 Balance 360 1178 Weight 149.685 kg Intake: Intake, IV Titration 100 Amount methylPREDNISolone SOD 100 SUCCIN 500 mg In Sodium Chloride 0.9% 100 ml @ 100 mls/hr IVPB Q12HR [facility] Rx#:[id number] Oral 360 1078 Other: Voiding Method Toilet Toilet Urinal Urinal # Voids 1 - Constitutional General appearance: Present: cooperative, no acute distress, obese - EENT Eyes: Present: anicteric sclerae, EOMI ENT: Present: hearing grossly normal - Respiratory Details: resp even and unlabored - Cardiovascular Details: skin warm and dry to touch - Peripheral edema leg Peripheral Edema: bilateral: None - Neurologic Neurologic: Present: focal deficits - Musculoskeletal Musculoskeletal: Present: left sided weakness - Psychiatric Psychiatric Comment(s): flat affect Psychiatric: Present: A&O x's 3, intact judgment & insight - Labs CBC & Chem 7: 01/12/23 07:10 01/12/23 07:10 Labs: Abnormal Lab Results - Last 24 Hours (Table) 01/14/23 01/14/23 01/15/23 Range/Units 19:48 23:42 05:50 POC Glucose (mg/dL) 250 H 204 H 164 H (70-110) mg/dL 01/15/23 01/15/23 Range/Units 12:00 18:00 POC Glucose (mg/dL) 171 H 247 H (70-110) mg/dL - Imaging and Cardiology MRI - head: report reviewed (addendum) Assessment and Plan (1) Brain mass Current Visit: Yes Status: Acute Priority: High Code(s): G93.89 - OTHER SPECIFIED DISORDERS OF BRAIN SNOMED Code(s): 205696538 Plan: Brain mass -CT CAP no masses, LAD or lesions -Recommendation from an Oncology standpoint was for transfer to tertiary center for Neurosurgical evaluation for biopsy/resection. We discussed recommendations with the patient yesterday and that time Neurology recommendations were pending. Reviewed Neurology notes and addendum to MRI brain report. If no distinct mass of the brain is seen and it is felt that demyelinating disease is the cause of symptoms then pt can remain under the care of Neurology. Nothing further from Oncology at this time.
[2023-01-16 00:05] LABS: Glucose,Whole Blood 189 mg/dL (70-110)
[2023-01-16] MEDS: INSULIN ASPART (NovoLOG) 100 UNIT/ML VIAL SQ SCH ×4 (00:14→16:44)
[2023-01-16 05:48] LABS: Glucose,Whole Blood 164 mg/dL (70-110)
[2023-01-16 07:29] LABS: HCT 47.5 % (39.0-53.0); HGB 15.3 gm/dL (13.0-17.5); MCH 26.4 pg (25.0-35.0); MCHC 32.3 g/dL (31.0-37.0); MCV 81.7 fL (80.0-100.0); Mean Platelet Volume 8.3; Platelet Count 239 k/uL (150-450); RBC 5.81 m/uL (4.30-5.90); RDW 14.1 % (11.5-15.5); WBC 20.2 k/uL (3.8-10.6)
[2023-01-16 07:52] LABS: African American GFR (CKD) >90 (>60 ml/min/1.73 sqM); Anion Gap 12 mmol/L; Blood Urea Nitrogen 17 mg/dL (9-20); Calcium 8.9 mg/dL (8.4-10.2); Carbon Dioxide 23 mmol/L (22-30); Chloride 103 mmol/L (98-107); Glucose 155 mg/dL (74-99); Non-African American GFR(CKD) >90 (>60 ml/min/1.73 sqM); Potassium 4.4 mmol/L (3.5-5.1); Sodium 138 mmol/L (137-145)
[2023-01-16] MEDS: ATORVASTATIN 40 MG TAB PO SCH (08:53)
[2023-01-16] MEDS: PANTOPRAZOLE 40 MG TABLET PO SCH (08:53)
[2023-01-16] MEDS: SODIUM CHLORIDE 0.9% 1,000 ML IV SCH ×2 (08:53→21:08)
[2023-01-16] MEDS: CYANOCOBALAMIN 500 MCG TAB PO SCH (08:53)
[2023-01-16] MEDS: methylPREDNISolone SOD SUCCIN 500 MG in SODIUM CHLORIDE 0.9% 100 ML IVPB SCH ×2 (10:26→21:08)
[2023-01-16 11:46] LABS: Glucose,Whole Blood 140 mg/dL (70-110)
[2023-01-16] MEDS ORDERED: LORazepam 2 MG/ML INJ ONE (15:17)
--- NOTE | 2023-01-16 15:26 | P.PN ---
Subjective Progress Note Date: 01/16/23 * 37-year-old gentleman with past medical history of hypertension, obesity presents to the emergency department with complaints of left-sided facial droop and dysarthria and dysphagia. Patient stated he had difficulty moving left and had drooling on the face. 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 He denies following, he denies vision changes headache, nausea, vomiting, abdominal pain, diarrhea. Patient said he was at work and had left-sided weakness was unable to sign through his left hand issue and is usually left-handed * Workup initiated in ER including CT head which was negative for intracranial process * CT angina head and neck negative for acute abnormality * Workup initiated in ER included serum chemistries which were WBC of 10.8 hemoglobin 15 platelet count of 189. PT/INR 0.9 * Serum chemistry showed sodium 137 potassium 4.1, nicely 25 BUN 10 creatinine 0.72 glucose 100 troponin negative TSH 1.4 * 01/12/23: Patient seen and evaluated bedside, patient left upper and lower extremity weakness has improved waiting to go down for MRI * 01/13/23: Patient seen and evaluated bedside accompanied by his ex, patient gave information to discuss medical details in front of her. MRI brain obtained, neurology following, recommend further imaging suspect MS. We'll defer further management to neurology patient in agreement with current management continue patient on aspirin Plavix discontinued as well * 01/14/23: Patient seen and evaluated bedside, MRI cervical and lumbar spine reviewed per report no evidence of demyelinating lesions,, continue patient on high-dose Solu-Medrol, neurology following will need to work with physical therapy. Per neurology suspect MS etiology of patient's symptoms * 01/15/23: Patient seen and evaluated bedside, left-sided weakness has improved. plan discussed with patient in detail explained at this time neurology would want to watch him and no need for transfer. MRI thoracic and lumbar spine reviewed, care plan discussed with Dr. henriquez who is in agreement. Continue patient on high-dose steroid. Continue correctional insulin while on steroids 01/16. Patient seen and examined. Still has weakness of left upper extremity. States he feels better compared to yesterday currently on IV steroids REVIEW OF SYSTEMS: CONSTITUTIONAL: No fever, no malaise,. CARDIOVASCULAR: No chest pain, no palpitations, no syncope. PULMONARY: No shortness of breath, no cough, GASTROINTESTINAL: No diarrhea, no nausea, no vomiting, no abdominal pain. NEUROLOGICAL: No headaches, no weakness, PHYSICAL EXAMINATION: GENERAL: The patient is alert and oriented x3, not in any acute distress. Well developed, well nourished. HEENT: Pupils are round and equally reacting to light. EOMI. No scleral icterus. No conjunctival pallor. Normocephalic, atraumatic. No pharyngeal erythema. No thyromegaly. CARDIOVASCULAR: S1 and S2 present. No murmurs, rubs, or gallops. PULMONARY: Chest is clear to auscultation, no wheezing or crackles. ABDOMEN: Soft, nontender, nondistended, normoactive bowel sounds. No palpable organomegaly. MUSCULOSKELETAL: No joint swelling or deformity. EXTREMITIES: No cyanosis, clubbing, or pedal edema. NEUROLOGICAL: Cranial nerves II 12 intact, muscle strength is 4/5 in left upper extremity, strength is 5/5 in remaining extremities SKIN: No rashes. Assessment and plan Facial drooping, left-sided weakness suspect MS * Hypertension * Hyperlipidemia * Morbid obesity * Neurology consulted, MRI brain completed MRI cervical thoracic lumbar spine completed, MRI thoracic and lumbar spine with and without contrast ordered>> patient initiated on high-dose steroids, neurology recommended 5 days of IV steroids. MRI lumbar spine ordered * In regards to concern for MS, CT head CT angiogram head and neck was negative, aspirin discontinued, continue Lipitor * Workup including ANAs, RF, dsDNA negative, negative for HIV, workup negative for Lyme * MRI brain completed and reviewed by neurology and echocardiogram ordered shows ejection fraction 55% * Follow-up on TSH within normal limits Labs and medication were reviewed.. Continue same treatment. Continue with symptomatic treatment. Resume home medication. Monitor labs and vitals. DVT and GI prophylaxis. Further recommendations as per clinical course of the patient Dictation was produced using [employer] dictation software. please excuse any grammatical, word or spelling errors. Objective - Vital Signs Vital signs: Vital Signs Temp 97.6 F 01/16/23 08:40 Pulse 82 01/16/23 08:40 Resp 18 01/16/23 08:40 BP 135/79 01/16/23 08:40 Pulse Ox 94 L 01/16/23 08:40 FiO2 Intake & Output 01/15/23 01/16/23 01/16/23 18:59 06:59 18:59 Intake Total 1178 10 250 Balance 1178 10 250 Weight 149.685 kg 123.5 kg Intake: IV 10 10 Invasive Line 2 10 10 Intake, IV Titration 100 Amount methylPREDNISolone SOD 100 SUCCIN 500 mg In Sodium Chloride 0.9% 100 ml @ 100 mls/hr IVPB Q12HR [facility] Rx#:[id number] Oral 1078 240 Other: Voiding Method Toilet Toilet Toilet Urinal Urinal Urinal # Voids 1 1 - Labs CBC & Chem 7: 01/16/23 07:06 01/16/23 07:06 Labs: Abnormal Lab Results - Last 24 Hours (Table) 01/15/23 01/15/23 01/16/23 Range/Units 12:00 18:00 00:03 WBC (3.8-10.6) k/uL Glucose (74-99) mg/dL POC Glucose (mg/dL) 171 H 247 H 189 H (70-110) mg/dL 01/16/23 01/16/23 01/16/23 Range/Units 05:46 07:06 07:06 WBC 20.2 H (3.8-10.6) k/uL Glucose 155 H (74-99) mg/dL POC Glucose (mg/dL) 164 H (70-110) mg/dL 01/16/23 Range/Units 11:44 WBC (3.8-10.6) k/uL Glucose (74-99) mg/dL POC Glucose (mg/dL) 140 H (70-110) mg/dL
[2023-01-16 16:43] LABS: Glucose,Whole Blood 175 mg/dL (70-110)
--- NOTE | 2023-01-16 17:06 | P.PN ---
Subjective Progress Note Date: 01/16/23 I am following up with the patient and he feels about the same. States feeling better compared to initial presentation. Objective - Vital Signs Vital signs: Vital Signs Temp 98.0 F 01/16/23 16:38 Pulse 83 01/16/23 16:38 Resp 18 01/16/23 16:38 BP 137/72 01/16/23 16:38 Pulse Ox 93 L 01/16/23 16:38 FiO2 Intake & Output 01/15/23 01/16/23 01/16/23 18:59 06:59 18:59 Intake Total 1178 10 608 Balance 1178 10 608 Weight 149.685 kg 123.5 kg Intake: IV 10 10 Invasive Line 2 10 10 Intake, IV Titration 100 Amount methylPREDNISolone SOD 100 SUCCIN 500 mg In Sodium Chloride 0.9% 100 ml @ 100 mls/hr IVPB Q12HR [facility] Rx#:[id number] Oral 1078 598 Other: Voiding Method Toilet Toilet Toilet Urinal Urinal Urinal # Voids 1 1 2 - Exam GENERAL: The patient is lying in bed and is not in acute distress. NEUROLOGICAL: Higher mental function: The patient is awake, alert, oriented to self, place and time. Patient is following commands. No aphasia and no neglect. Cranial nerves: The pupils are round, equal and reactive to light. Visual baptiste are full to confrontation throughout. Extraocular movement is intact no nystagmus is noted. Facial sensation is normal to touch throughout. The facial strength is subtle left nasolabial flattening Tongue is midline and moved side -to-side without any difficulty. No dysarthria is noted. Shoulder shrug is normal bilaterally. Motor: The strength is4+over the left upper extremity. Left lower is 5/5 . Otherwise 5 over 5 throughout. Normal tone and bulk. Cerebellum: Finger to nose is minimally slow on the left but no ataxia or dysmetria. Normal over the right upper. Sensation: Sensation is normal to touch throughout. - Labs CBC & Chem 7: 01/16/23 07:06 01/16/23 07:06 Labs: Abnormal Lab Results - Last 24 Hours (Table) 01/15/23 01/16/23 01/16/23 Range/Units 18:00 00:03 05:46 WBC (3.8-10.6) k/uL Glucose (74-99) mg/dL POC Glucose (mg/dL) 247 H 189 H 164 H (70-110) mg/dL 01/16/23 01/16/23 01/16/23 Range/Units 07:06 07:06 11:44 WBC 20.2 H (3.8-10.6) k/uL Glucose 155 H (74-99) mg/dL POC Glucose (mg/dL) 140 H (70-110) mg/dL 01/16/23 Range/Units 16:41 WBC (3.8-10.6) k/uL Glucose (74-99) mg/dL POC Glucose (mg/dL) 175 H (70-110) mg/dL Assessment and Plan Assessment: This is a 37-year-old gentleman who since emergency department because of speech difficulty and the left upper extremity weakness that he noticed since this past Thursday. Acute left sided weakness (upper > lower ), subtle left facial droop upper extremity weakness with transient speech difficulty. Has enhancement on right guerrero radiata adjacent lateral ventricle and has another small enhancement in corpus collasum. 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 Seems Tumefactive Multiple Sclerosis---feels doing better today since steroids. Underlying history of hypertension Underlying history of hypercholesterolemia Plan: * MR the brain without is reported as area of peripheral restricted diffusion within the right guerrero radiata measuring up to 2.32.1 cm with minimal surrounding vasogenic edema. Further workup with contrast enhancement only imaging of the brain recommended. Findings concerning for primary mass versus infection versus other etiologies. * MRI the brain with gadolinium is reported as there is predominantly peripheral postcontrast enhancement of the guerrero radiata S last sent from semi-old lesion favor to represent mass with other etiologies such as infection felt to be less likely given the lack of vasogenic edema. I personally reviewed the MRI today with the reading radiologist (Dr. Tracy) and he felt there was another small lesion that was enhancing and he reviewed the image and and he felt there is a concerning for deymlinating disease. Also there is an addendum by Dr. Abebe initial reading radiologist in which she stated that upon further review with there is bilateral increased signal within the splenium of the corpus callosum. Other differential consideration given multiple lesion within the brain including demyelination which is felt to be higher in the differential given multiple lesions. The larger the diffusion restriction lesion is felt to be active demyelination the setting of demyelination. * MRI the cervical spine is reported as motion limited exam. No evidence for mass or active demyelination. Cord signal is felt to be maintained. No evidence for significant spinal canal or neuroforaminal stenosis. * Pending MRI thoracic and lumbar. * I stopped aspirin and Plavix since the patient does not have a stroke. * KHLOE is negative, Anti-dsDNA is negative, RF <15, ESR: 31, CRP:1.0 and repeat is 0.6, HIV is non reactive , homocysteine: 13.4, Lyme disease is negative, syphilis is non reactive, C and P-ANCA are <1:20, cardiolipin ab are negative, Methylmalonic acid 0.12 (negative), HTLV 1 is negative. * vitamin B12: 368 * Recommend CSF study and today would by end of today would be total of 5 days off plavix. I consulted IR guided LP and ordered CSF study. * I started the patient on Solu-Medrol IV 500 mg every 12 hours for 5 days (started on 01/13/23) and today is day#4/5. Recommend sugar monitoring and will defer management to primary team. * Oncology team is on board. They ordered CT abdomen and pelvis which is reported as no evidence for mass or lymphadenopathy. Hepatic steatosis. They recommended transfer for neurosurgical evaluation for biopsy of the lesion. 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 From a neurologic perspective no need for urgent neurosurgical evaluation. * PT OT and CHEMISTRY RESEARCH ASSISTANT are consulted * Continue neuro checks * For GI prophylaxis: Started on IV protonix especially since on IV steroids. * We'll defer the rest of the medical management to primary team Plan discussed with the patient Will continue to follow. Dr. Holguin will start neurology service tomorrow A.M. Time with Patient: Less than 30
--- NOTE | 2023-01-16 17:42 | MR ---
EXAMINATION TYPE: MR lumbar spine wo/w con DATE OF EXAM: 01/16/2023 4:24 PM CLINICAL INDICATION:Male, 37 years old with history of back pain. rule out mass. recent brain mass MRI; PHH, Back pain, rule out mass, recent brain mass MRI COMPARISON: None TECHNIQUE: Multi planar, multi sequence imaging was performed utilizing: T1-weighted, T2-weighted, a nd turbo inversion recovery imaging of the lumbar spine. IV Contrast: 15 cc Gadobutrol. (None if empty) FINDINGS: Alignment: The lumbar vertebral bodies have preserved heights and alignment. Cord: The conus medullaris and the distal spinal cord appear unremarkable with regards to their signa l intensity and morphology. No abnormal postcontrast enhancement. Bones/Discs: Minimal degeneration with osteophyte formation. No abnormal postcontrast enhancement. De generation with osteophyte formation at the adjoining L1 and L2 endplates with some Modic endplate ch anges. Mild bony edema at the superior endplate of L2 anteriorly. Intervertebral disc signal is maint ained. T12-L1: No evidence of significant spinal canal stenosis or neural foraminal stenosis. L1-L2: No evidence of significant spinal canal stenosis or neural foraminal stenosis. L2-L3: No evidence of significant spinal canal stenosis or neural foraminal stenosis. L3-L4: No evidence of significant spinal canal stenosis or neural foraminal stenosis. L4-L5: No evidence of significant spinal canal stenosis or neural foraminal stenosis. L5-S1: The disc is rounded posterior morphology without significant spinal canal stenosis. Facet join t arthropathy with mild bilateral neural foraminal stenosis. No significant spinal canal or neural foraminal stenosis in the remainder of the visualized levels. Other findings: None. IMPRESSION: 1. No definitive evidence of disc herniation or significant spinal canal stenosis. 2. No abnormal postcontrast enhancement or evidence for mass. 3. Mild degeneration changes worse at L1-L2 adjoining endplates of mild bony edema at the L2 anterior superior vertebral body.
[2023-01-16 18:08] LABS: Glucose,Whole Blood 209 mg/dL (70-110)
[2023-01-17 00:12] LABS: Glucose,Whole Blood 196 mg/dL (70-110)
[2023-01-17] MEDS: INSULIN ASPART (NovoLOG) 100 UNIT/ML VIAL SQ SCH ×4 (00:34→18:53)
[2023-01-17 06:21] LABS: Glucose,Whole Blood 141 mg/dL (70-110)
[2023-01-17] MEDS: ACETAMINOPHEN TAB 325 MG TAB PO PRN (08:14)
[2023-01-17] MEDS: PANTOPRAZOLE 40 MG TABLET PO SCH (08:15)
[2023-01-17] MEDS: CYANOCOBALAMIN 500 MCG TAB PO SCH (08:15)
[2023-01-17] MEDS: ATORVASTATIN 40 MG TAB PO SCH (08:15)
[2023-01-17] MEDS: hydrALAZINE HCL 20 MG/ML 1 ML VIAL IVP PRN (08:18)
[2023-01-17] MEDS: methylPREDNISolone SOD SUCCIN 500 MG in SODIUM CHLORIDE 0.9% 100 ML IVPB SCH ×2 (08:26→19:41)
--- NOTE | 2023-01-17 11:36 | P.PN ---
Subjective Progress Note Date: 01/17/23 Patient was seen for a follow-up. Patient is laying comfortably in the bed. Patient was seen initially in the hospital. Subsequently was seen by Dr. Martin Hennessy. Please refer to his notes for details. Patient continues to have left-sided weakness. He denies any headache, any visual symptoms. Objective - Vital Signs Vital signs: Vital Signs Temp 97.7 F 01/17/23 08:00 Pulse 69 01/17/23 08:00 Resp 20 01/17/23 08:00 BP 166/85 01/17/23 08:00 Pulse Ox 94 L 01/17/23 08:00 FiO2 Intake & Output 01/16/23 01/17/23 01/17/23 18:59 06:59 18:59 Intake Total 788 890 236 Balance 788 890 236 Intake: IV 10 Invasive Line 2 10 Intake, IV Titration 100 Amount methylPREDNISolone SOD 100 SUCCIN 500 mg In Sodium Chloride 0.9% 100 ml @ 100 mls/hr IVPB Q12HR [facility] Rx#:[id number] Oral 778 790 236 Other: Voiding Method Toilet Toilet Urinal Urinal # Voids 2 1 - Exam Patient's mental status, speech is mildly dysarthric and language functions are normal. Cranial nerves significant for left facial weakness, central type. On muscle strength testing, the strength is (right/left) deltoid 5/4, biceps 5/4, triceps 5/4, senior cyber security analyst 5/4. Hip flexion 5/5-, ankle dorsiflexion 5/5. Sensory touch is equal. Cerebellar function revealed very slow movement with the left side. - Labs CBC & Chem 7: 01/16/23 07:06 01/16/23 07:06 Labs: Abnormal Lab Results - Last 24 Hours (Table) 01/16/23 01/16/23 01/16/23 Range/Units 11:44 16:41 18:06 POC Glucose (mg/dL) 140 H 175 H 209 H (70-110) mg/dL 01/17/23 01/17/23 Range/Units 00:10 06:20 POC Glucose (mg/dL) 196 H 141 H (70-110) mg/dL Assessment and Plan Assessment: * Left hemiparesis, with evidence of enhancing lesion involving the right guerrero radiata adjacent lateral ventricle. MRI brain also revealed some white matter lesion, consistent with demyelinating disease. Probable multiple sclerosis. Rule out tumefactive MS. * Hypertension, not treated * Medication noncompliance * Hyperlipidemia * X tobacco use Plan: * Await lumbar puncture to evaluate for MS. * MR the brain without is reported as area of peripheral restricted diffusion within the right guerrero radiata measuring up to 2.32.1 cm with minimal surrounding vasogenic edema. Further workup with contrast enhancement only imaging of the brain recommended. Findings concerning for primary mass versus infection versus other etiologies. * MRI the brain with gadolinium is reported as there is predominantly peripheral postcontrast enhancement of the guerrero radiata S last sent from semi-old lesion favor to represent mass with other etiologies such as infection felt to be less likely given the lack of vasogenic edema. I personally reviewed the MRI and felt there is a concerning for deymlinating disease. Also there is an addendum by Dr. Abebe initial reading radiologist in which she stated that upon further review with there is bilateral increased signal within the splenium of the corpus callosum. Other differential consideration given multiple lesion within the brain including demyelination which is felt to be higher in the differential given multiple lesions. The larger the diffusion restriction lesion is felt to be active demyelination the setting of demyelination. * MRI the cervical spine is reported as motion limited exam. No evidence for mass or active demyelination. Cord signal is felt to be maintained. No evidence for significant spinal canal or neuroforaminal stenosis. * MRI thoracic spine with and without contrast revealed motion limited exam. Degeneration changes of the spine worse at T9-T10 with disc space narrowing. No abnormal bony edema identified. No abnormal postcontrast enhancement. No evidence for significant spinal canal or neuroforaminal stenosis. * MRI of the lumbar spine revealed no definitive evidence of disc herniation or significant spinal canal stenosis. No abnormal postcontrast enhancement or evidence of mass. Mild degeneration changes worse at L1-L2 adjoining endplates of mild bony edema at the L2 anterior superior vertebral body. and lumbar. * Dr. Hennessy stopped aspirin and Plavix since the patient does not have a stroke. * KHLOE is negative, Anti-dsDNA is negative, RF <15, ESR: 31, CRP:1.0 and repeat is 0.6, HIV is non reactive , homocysteine: 13.4, Lyme disease is negative, syphilis is non reactive, C and P-ANCA are <1:20, cardiolipin ab are negative, Methylmalonic acid 0.12 (negative), HTLV 1 is negative. * vitamin B12: 368 * Recommend CSF study and today would by end of today would be total of [address] Hennessy has consulted IR for a guided LP and ordered CSF study. * Dr. Hennessy started the patient on Solu-Medrol IV 500 mg every 12 hours for 5 days (started on 01/13/23) and today is day#5. Recommend sugar monitoring and will defer management to primary team. * Oncology team is on board. They ordered CT abdomen and pelvis which is reported as no evidence for mass or lymphadenopathy. Hepatic steatosis. They recommended transfer for neurosurgical evaluation for biopsy of the lesion. In my opinion the patient likely has demyelinating disease and pending further workup but in the meantime he is doing well and actually better after the steroids. From a neurologic perspective no need for urgent neurosurgical evaluation. * PT OT and PLUGGER MAN are consulted * Continue neuro checks * For GI prophylaxis: Started on IV protonix especially since on IV steroids.
[2023-01-17 12:06] LABS: Glucose,Whole Blood 196 mg/dL (70-110)
[2023-01-17] MEDS: methocarbamoL 500 MG TAB PO PRN (12:33)
--- NOTE | 2023-01-17 13:51 | P.PN ---
Subjective Progress Note Date: 01/17/23 * 37-year-old gentleman with past medical history of hypertension, obesity presents to the emergency department with complaints of left-sided facial droop and dysarthria and dysphagia. Patient stated he had difficulty moving left and had drooling on the face. 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 He denies following, he denies vision changes headache, nausea, vomiting, abdominal pain, diarrhea. Patient said he was at work and had left-sided weakness was unable to sign through his left hand issue and is usually left-handed * Workup initiated in ER including CT head which was negative for intracranial process * CT angina head and neck negative for acute abnormality * Workup initiated in ER included serum chemistries which were WBC of 10.8 hemoglobin 15 platelet count of 189. PT/INR 0.9 * Serum chemistry showed sodium 137 potassium 4.1, nicely 25 BUN 10 creatinine 0.72 glucose 100 troponin negative TSH 1.4 * 01/12/23: Patient seen and evaluated bedside, patient left upper and lower extremity weakness has improved waiting to go down for MRI * 01/13/23: Patient seen and evaluated bedside accompanied by his ex, patient gave information to discuss medical details in front of her. MRI brain obtained, neurology following, recommend further imaging suspect MS. We'll defer further management to neurology patient in agreement with current management continue patient on aspirin Plavix discontinued as well * 01/14/23: Patient seen and evaluated bedside, MRI cervical and lumbar spine reviewed per report no evidence of demyelinating lesions,, continue patient on high-dose Solu-Medrol, neurology following will need to work with physical therapy. Per neurology suspect MS etiology of patient's symptoms * 01/15/23: Patient seen and evaluated bedside, left-sided weakness has improved. plan discussed with patient in detail explained at this time neurology would want to watch him and no need for transfer. MRI thoracic and lumbar spine reviewed, care plan discussed with Dr. henriquez who is in agreement. Continue patient on high-dose steroid. Continue correctional insulin while on steroids 01/16. Patient seen and examined. Still has weakness of left upper extremity. States he feels better compared to yesterday currently on IV steroids 01/17. Patient seen and examined. Weakness of left upper extremity is improving. Denies any weakness of any extremity. Denies any slurred speech. Vital signs stable REVIEW OF SYSTEMS: CONSTITUTIONAL: No fever, no malaise,. CARDIOVASCULAR: No chest pain, no palpitations, no syncope. PULMONARY: No shortness of breath, no cough, GASTROINTESTINAL: No diarrhea, no nausea, no vomiting, no abdominal pain. NEUROLOGICAL: No headaches, no weakness, PHYSICAL EXAMINATION: GENERAL: The patient is alert and oriented x3, not in any acute distress. Well developed, well nourished. HEENT: Pupils are round and equally reacting to light. EOMI. No scleral icterus. No conjunctival pallor. Normocephalic, atraumatic. No pharyngeal erythema. No thyromegaly. CARDIOVASCULAR: S1 and S2 present. No murmurs, rubs, or gallops. PULMONARY: Chest is clear to auscultation, no wheezing or crackles. ABDOMEN: Soft, nontender, nondistended, normoactive bowel sounds. No palpable organomegaly. MUSCULOSKELETAL: No joint swelling or deformity. EXTREMITIES: No cyanosis, clubbing, or pedal edema. NEUROLOGICAL: Cranial nerves II 12 intact, muscle strength is 4/5 in left upper extremity, strength is 5/5 in remaining extremities SKIN: No rashes. Assessment and plan Facial drooping, left-sided weakness suspect MS * Hypertension * Hyperlipidemia * Morbid obesity * Neurology consulted, MRI brain completed MRI cervical thoracic lumbar spine completed, MRI thoracic and lumbar spine with and without contrast ordered>> patient initiated on high-dose steroids, neurology recommended 5 days of IV steroids. MRI lumbar spine no definitive evidence of disc herniation or significant spinal canal stenosis. No abnormal postcontrast enhancement or evidence of mass. Neurology ordered lumbar puncture * In regards to concern for MS, CT head CT angiogram head and neck was negative, aspirin discontinued, continue Lipitor * Workup including ANAs, RF, dsDNA negative, negative for HIV, workup negative for Lyme * MRI brain completed and reviewed by neurology and echocardiogram ordered shows ejection fraction 55% * Follow-up on TSH within normal limits Labs and medication were reviewed.. Continue same treatment. Continue with symptomatic treatment. Resume home medication. Monitor labs and vitals. DVT and GI prophylaxis. Further recommendations as per clinical course of the patient Dictation was produced using [employer] dictation software. please excuse any grammatical, word or spelling errors. Objective - Vital Signs Vital signs: Vital Signs Temp 98.2 F 01/17/23 12:30 Pulse 87 01/17/23 12:30 Resp 20 01/17/23 12:30 BP 147/93 01/17/23 12:30 Pulse Ox 94 L 01/17/23 12:30 FiO2 Intake & Output 01/16/23 01/17/23 01/17/23 18:59 06:59 18:59 Intake Total 788 890 236 Balance 788 890 236 Intake: IV 10 Invasive Line 2 10 Intake, IV Titration 100 Amount methylPREDNISolone SOD 100 SUCCIN 500 mg In Sodium Chloride 0.9% 100 ml @ 100 mls/hr IVPB Q12HR [facility] Rx#:[id number] Oral 778 790 236 Other: Voiding Method Toilet Toilet Urinal Urinal # Voids 2 1 - Labs CBC & Chem 7: 01/16/23 07:06 01/16/23 07:06 Labs: Abnormal Lab Results - Last 24 Hours (Table) 01/16/23 01/16/23 01/17/23 Range/Units 16:41 18:06 00:10 POC Glucose (mg/dL) 175 H 209 H 196 H (70-110) mg/dL 01/17/23 01/17/23 Range/Units 06:20 12:04 POC Glucose (mg/dL) 141 H 196 H (70-110) mg/dL
[2023-01-17 18:01] LABS: Glucose,Whole Blood 182 mg/dL (70-110)
[2023-01-17] MEDS: SODIUM CHLORIDE 0.9% 1,000 ML IV SCH (18:56)
[2023-01-17 23:59] LABS: Glucose,Whole Blood 157 mg/dL (70-110)
[2023-01-18] MEDS: INSULIN ASPART (NovoLOG) 100 UNIT/ML VIAL SQ SCH ×3 (00:02→11:56)
[2023-01-18 06:19] LABS: Glucose,Whole Blood 137 mg/dL (70-110)
[2023-01-18] MEDS: PANTOPRAZOLE 40 MG TABLET PO SCH (08:10)
[2023-01-18] MEDS: CYANOCOBALAMIN 500 MCG TAB PO SCH (08:10)
[2023-01-18] MEDS: ATORVASTATIN 40 MG TAB PO SCH (08:10)
[2023-01-18] MEDS: methylPREDNISolone SOD SUCCIN 500 MG in SODIUM CHLORIDE 0.9% 100 ML IVPB SCH (09:20)
[2023-01-18 11:54] LABS: Glucose,Whole Blood 132 mg/dL (70-110)
[2023-01-18] MEDS: hydrALAZINE HCL 20 MG/ML 1 ML VIAL IVP PRN (12:47)
--- NOTE | 2023-01-18 14:07 | P.PN ---
Subjective Progress Note Date: 01/18/23 * 37-year-old gentleman with past medical history of hypertension, obesity presents to the emergency department with complaints of left-sided facial droop and dysarthria and dysphagia. Patient stated he had difficulty moving left and had drooling on the face. 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 He denies following, he denies vision changes headache, nausea, vomiting, abdominal pain, diarrhea. Patient said he was at work and had left-sided weakness was unable to sign through his left hand issue and is usually left-handed * Workup initiated in ER including CT head which was negative for intracranial process * CT angina head and neck negative for acute abnormality * Workup initiated in ER included serum chemistries which were WBC of 10.8 hemoglobin 15 platelet count of 189. PT/INR 0.9 * Serum chemistry showed sodium 137 potassium 4.1, nicely 25 BUN 10 creatinine 0.72 glucose 100 troponin negative TSH 1.4 * 01/12/23: Patient seen and evaluated bedside, patient left upper and lower extremity weakness has improved waiting to go down for MRI * 01/13/23: Patient seen and evaluated bedside accompanied by his ex, patient gave information to discuss medical details in front of her. MRI brain obtained, neurology following, recommend further imaging suspect MS. We'll defer further management to neurology patient in agreement with current management continue patient on aspirin Plavix discontinued as well * 01/14/23: Patient seen and evaluated bedside, MRI cervical and lumbar spine reviewed per report no evidence of demyelinating lesions,, continue patient on high-dose Solu-Medrol, neurology following will need to work with physical therapy. Per neurology suspect MS etiology of patient's symptoms * 01/15/23: Patient seen and evaluated bedside, left-sided weakness has improved. plan discussed with patient in detail explained at this time neurology would want to watch him and no need for transfer. MRI thoracic and lumbar spine reviewed, care plan discussed with Dr. henriquez who is in agreement. Continue patient on high-dose steroid. Continue correctional insulin while on steroids 01/16. Patient seen and examined. Still has weakness of left upper extremity. States he feels better compared to yesterday currently on IV steroids 01/17. Patient seen and examined. Weakness of left upper extremity is improving. Denies any weakness of any extremity. Denies any slurred speech. Vital signs stable 01/17. Patient seen and examined. Completed 5 days of IV steroids. Neurology planning to do LP REVIEW OF SYSTEMS: CONSTITUTIONAL: No fever, no malaise,. CARDIOVASCULAR: No chest pain, no palpitations, no syncope. PULMONARY: No shortness of breath, no cough, GASTROINTESTINAL: No diarrhea, no nausea, no vomiting, no abdominal pain. NEUROLOGICAL: No headaches, no weakness, PHYSICAL EXAMINATION: GENERAL: The patient is alert and oriented x3, not in any acute distress. Well developed, well nourished. HEENT: Pupils are round and equally reacting to light. EOMI. No scleral icterus. No conjunctival pallor. Normocephalic, atraumatic. No pharyngeal erythema. No thyromegaly. CARDIOVASCULAR: S1 and S2 present. No murmurs, rubs, or gallops. PULMONARY: Chest is clear to auscultation, no wheezing or crackles. ABDOMEN: Soft, nontender, nondistended, normoactive bowel sounds. No palpable organomegaly. MUSCULOSKELETAL: No joint swelling or deformity. EXTREMITIES: No cyanosis, clubbing, or pedal edema. NEUROLOGICAL: Cranial nerves II 12 intact, muscle strength is 4/5 in left upper extremity, strength is 5/5 in remaining extremities SKIN: No rashes. Assessment and plan Facial drooping, left-sided weakness suspect MS * Hypertension * Hyperlipidemia * Morbid obesity * Neurology consulted, MRI brain completed MRI cervical thoracic lumbar spine completed, MRI thoracic and lumbar spine with and without contrast ordered>> patient initiated on high-dose steroids, neurology recommended 5 days of IV steroids which have been completed on 01/17. MRI lumbar spine no definitive evidence of disc herniation or significant spinal canal stenosis. No abnormal postcontrast enhancement or evidence of mass. Neurology ordered lumbar puncture * In regards to concern for MS, CT head CT angiogram head and neck was negative, , continue Lipitor * Workup including ANAs, RF, dsDNA negative, negative for HIV, workup negative for Lyme * MRI brain completed and reviewed by neurology and echocardiogram ordered shows ejection fraction 55% * Follow-up on TSH within normal limits Labs and medication were reviewed.. Continue same treatment. Continue with symptomatic treatment. Resume home medication. Monitor labs and vitals. DVT and GI prophylaxis. Further recommendations as per clinical course of the patient Dictation was produced using dragon dictation software. please excuse any grammatical, word or spelling errors. Objective - Vital Signs Vital signs: Vital Signs Temp 97.8 F 01/18/23 08:07 Pulse 70 01/18/23 08:07 Resp 18 01/18/23 08:07 BP 151/77 01/18/23 08:07 Pulse Ox 97 01/18/23 08:07 FiO2 Intake & Output 01/17/23 01/18/23 01/18/23 18:59 06:59 18:59 Intake Total 716 640 Balance 716 640 Intake: Intake, IV Titration 100 Amount methylPREDNISolone SOD 100 SUCCIN 500 mg In Sodium Chloride 0.9% 100 ml @ 100 mls/hr IVPB Q12HR [facility] Rx#:[id number] Oral 716 540 Other: Voiding Method Toilet Urinal # Voids 1 - Labs CBC & Chem 7: 01/16/23 07:06 01/16/23 07:06 Labs: Abnormal Lab Results - Last 24 Hours (Table) 01/17/23 01/17/23 01/17/23 Range/Units 12:04 17:58 23:58 POC Glucose (mg/dL) 196 H 182 H 157 H (70-110) mg/dL 01/18/23 Range/Units 06:18 POC Glucose (mg/dL) 137 H (70-110) mg/dL
[2023-01-18] MEDS: SODIUM CHLORIDE 0.9% 1,000 ML IV SCH ×2 (14:54)
[2023-01-18] MEDS: predniSONE 20 MG TAB PO SCH (16:41)
[2023-01-18] MEDS: methocarbamoL 500 MG TAB PO PRN (21:46)
[2023-01-19 07:48] LABS: Basophils # (A) 0.1 k/uL (0-0.2); Basophils % (A) 0 %; Eosinophils % (A) 0 %; HCT 48.5 % (39.0-53.0); HGB 15.4 gm/dL (13.0-17.5); Lymphocytes # (A) 2.8 k/uL (1.0-4.8); Lymphocytes % (A) 19 %; MCH 26.3 pg (25.0-35.0); MCHC 31.7 g/dL (31.0-37.0); MCV 82.8 fL (80.0-100.0); Mean Platelet Volume 8.1; Monocytes # (A) 0.8 k/uL (0-1.0); Monocytes % (A) 5 %; Neutrophils # (A) 11.4 k/uL (1.3-7.7); Neutrophils % (A) 74 %; Platelet Count 250 k/uL (150-450); RBC 5.85 m/uL (4.30-5.90); WBC 15.3 k/uL (3.8-10.6)
[2023-01-19 08:48] LABS: ALT 27 U/L (4-49); AST 20 U/L (17-59); African American GFR (CKD) >90 (>60 ml/min/1.73 sqM); Albumin 3.2 g/dL (3.5-5.0); Alkaline Phosphatase 49 U/L (38-126); Anion Gap 8 mmol/L; Blood Urea Nitrogen 24 mg/dL (9-20); Calcium 8.2 mg/dL (8.4-10.2); Carbon Dioxide 25 mmol/L (22-30); Chloride 102 mmol/L (98-107); Glucose 89 mg/dL (74-99); Non-African American GFR(CKD) >90 (>60 ml/min/1.73 sqM); Potassium 4.6 mmol/L (3.5-5.1); Sodium 135 mmol/L (137-145); Total Bilirubin 0.5 mg/dL (0.2-1.3); Total Protein 5.9 g/dL (6.3-8.2)
[2023-01-19] MEDS: SODIUM CHLORIDE 0.9% 1,000 ML IV SCH (09:11)
[2023-01-19] MEDS: PANTOPRAZOLE 40 MG TABLET PO SCH (09:14)
[2023-01-19] MEDS: CYANOCOBALAMIN 500 MCG TAB PO SCH (09:14)
[2023-01-19] MEDS: predniSONE 20 MG TAB PO SCH (09:14)
[2023-01-19] MEDS: ATORVASTATIN 40 MG TAB PO SCH (09:14)
--- NOTE | 2023-01-19 13:36 | P.PN ---
Subjective Progress Note Date: 01/19/23 * 37-year-old gentleman with past medical history of hypertension, obesity presents to the emergency department with complaints of left-sided facial droop and dysarthria and dysphagia. Patient stated he had difficulty moving left and had drooling on the face. 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 He denies following, he denies vision changes headache, nausea, vomiting, abdominal pain, diarrhea. Patient said he was at work and had left-sided weakness was unable to sign through his left hand issue and is usually left-handed * Workup initiated in ER including CT head which was negative for intracranial process * CT angina head and neck negative for acute abnormality * Workup initiated in ER included serum chemistries which were WBC of 10.8 hemoglobin 15 platelet count of 189. PT/INR 0.9 * Serum chemistry showed sodium 137 potassium 4.1, nicely 25 BUN 10 creatinine 0.72 glucose 100 troponin negative TSH 1.4 * 01/12/23: Patient seen and evaluated bedside, patient left upper and lower extremity weakness has improved waiting to go down for MRI * 01/13/23: Patient seen and evaluated bedside accompanied by his ex, patient gave information to discuss medical details in front of her. MRI brain obtained, neurology following, recommend further imaging suspect MS. We'll defer further management to neurology patient in agreement with current management continue patient on aspirin Plavix discontinued as well * 01/14/23: Patient seen and evaluated bedside, MRI cervical and lumbar spine reviewed per report no evidence of demyelinating lesions,, continue patient on high-dose Solu-Medrol, neurology following will need to work with physical therapy. Per neurology suspect MS etiology of patient's symptoms * 01/15/23: Patient seen and evaluated bedside, left-sided weakness has improved. plan discussed with patient in detail explained at this time neurology would want to watch him and no need for transfer. MRI thoracic and lumbar spine reviewed, care plan discussed with Dr. henriquez who is in agreement. Continue patient on high-dose steroid. Continue correctional insulin while on steroids 01/16. Patient seen and examined. Still has weakness of left upper extremity. States he feels better compared to yesterday currently on IV steroids 01/17. Patient seen and examined. Weakness of left upper extremity is improving. Denies any weakness of any extremity. Denies any slurred speech. Vital signs stable 01/18. Patient seen and examined. Completed 5 days of IV steroids. Neurology planning to do LP 01/19. Patient seen and examined. Currently on oral prednisone 60 mg daily. Continues to have improvement in left upper extremity weakness. Denies any slurred speech denies any lightheadedness or dizziness REVIEW OF SYSTEMS: CONSTITUTIONAL: No fever, no malaise,. CARDIOVASCULAR: No chest pain, no palpitations, no syncope. PULMONARY: No shortness of breath, no cough, GASTROINTESTINAL: No diarrhea, no nausea, no vomiting, no abdominal pain. NEUROLOGICAL: No headaches, no weakness, PHYSICAL EXAMINATION: GENERAL: The patient is alert and oriented x3, not in any acute distress. Well developed, well nourished. HEENT: Pupils are round and equally reacting to light. EOMI. No scleral icterus. No conjunctival pallor. Normocephalic, atraumatic. No pharyngeal erythema. No thyromegaly. CARDIOVASCULAR: S1 and S2 present. No murmurs, rubs, or gallops. PULMONARY: Chest is clear to auscultation, no wheezing or crackles. ABDOMEN: Soft, nontender, nondistended, normoactive bowel sounds. No palpable organomegaly. MUSCULOSKELETAL: No joint swelling or deformity. EXTREMITIES: No cyanosis, clubbing, or pedal edema. NEUROLOGICAL: Cranial nerves II 12 intact, muscle strength is 4/5 in left upper extremity, strength is 5/5 in remaining extremities SKIN: No rashes. Assessment and plan Facial drooping, left-sided weakness suspect MS * Hypertension * Hyperlipidemia * Morbid obesity * Neurology consulted, MRI brain completed MRI cervical thoracic lumbar spine completed, MRI thoracic and lumbar spine with and without contrast ordered>> patient initiated on high-dose steroids, neurology recommended 5 days of IV steroids which have been completed on 01/17. MRI lumbar spine no definitive evidence of disc herniation or significant spinal canal stenosis. No abnormal postcontrast enhancement or evidence of mass. Neurology ordered lumbar puncture, started oral prednisone 60 mg daily, want tapering of prednisone for 4 weeks * In regards to concern for MS, CT head CT angiogram head and neck was negative, , continue Lipitor * Workup including ANAs, RF, dsDNA negative, negative for HIV, workup negative for Lyme * MRI brain completed and reviewed by neurology and echocardiogram ordered shows ejection fraction 55% * Follow-up on TSH within normal limits Labs and medication were reviewed.. Continue same treatment. Continue with symptomatic treatment. Resume home medication. Monitor labs and vitals. DVT and GI prophylaxis. Further recommendations as per clinical course of the patient Dictation was produced using [employer] dictation software. please excuse any grammatical, word or spelling errors. Objective - Vital Signs Vital signs: Vital Signs Temp 97.5 F L 01/19/23 04:00 Pulse 62 01/19/23 09:07 Resp 18 01/19/23 09:07 BP 158/83 01/19/23 09:07 Pulse Ox 97 01/19/23 09:07 FiO2 Intake & Output 01/18/23 01/19/23 01/19/23 18:59 06:59 18:59 Intake Total 2218 180 Output Total 225 Balance 2218 -225 180 Intake: Intake, IV Titration 900 Amount Sodium Chloride 0.9% 1, 900 000 ml @ 75 mls/hr IV . [id number] [facility] Rx#:[id number] Oral 1318 180 Output: Urine 225 Other: Voiding Method Toilet Toilet Urinal Urinal # Voids 2 - Labs CBC & Chem 7: 01/19/23 06:46 01/19/23 06:46 Labs: Abnormal Lab Results - Last 24 Hours (Table) 01/18/23 01/19/23 01/19/23 Range/Units 11:52 06:46 06:46 WBC 15.3 H (3.8-10.6) k/uL Neutrophils # 11.4 H (1.3-7.7) k/uL Sodium 135 L (137-145) mmol/L BUN 24 H (9-20) mg/dL POC Glucose (mg/dL) 132 H (70-110) mg/dL Calcium 8.2 L (8.4-10.2) mg/dL Total Protein 5.9 L (6.3-8.2) g/dL Albumin 3.2 L (3.5-5.0) g/dL
--- NOTE | 2023-01-19 14:48 | US ---
EXAMINATION TYPE: US venous doppler duplex UE LT DATE OF EXAM: 01/19/2023 COMPARISON: NONE CLINICAL INDICATION: Male, 37 years old with history of edema; Left wrist/hand swelling, pt has IV si te left anterior wrist x 2-3 days SIDE PERFORMED: Left Left Arm: Negative for DVT, Positive for SVT left anterior wrist near IV site IMPRESSION: 1. No evidence for deep vein thrombosis of the left upper summary. 2. Superficial thrombophlebitis near the anterior wrist near the IV site.
--- NOTE | 2023-01-19 15:28 | P.PCN ---
Date of Procedure: 01/19/23 Procedure(s) Performed: Preoperative diagnosis: Multiple sclerosis Post operative diagnoses: Multiple sclerosis Procedure= lumbar puncture Anesthesia= local infiltration with lidocaine 1% 5 mL Condition: stable Complication: none. Description of the procedure procedure risk and benefits discussed with the patient , consent signed. Patient and the procedure area placed in sitting position, back prepped with chlorhexidine 3 times been local infiltration of the skin and subcutaneous tissue with lidocaine 1% 5 mL for skin and subcu interstitial frustrations at L4 5 levels then 22-gauge 5 inches long Quincke- type needle advanced slowly at L4- 5 interlaminar space there was positive cerebrospinal fluid which was clear, no heme, no paresthesia ,total of 9 ML of clear cerebrospinal fluid collected in 4 different tubes 2-2-1/2 mL in each, then the needle removed and a Band-Aid applied and patient tolerated the procedure well without any complications.
--- NOTE | 2023-01-19 18:20 | P.PN ---
Subjective Progress Note Date: 01/19/23 01/19/2023: Patient was seen for a follow-up. Patient continues to have left- sided weakness, mainly involving the arm more than the leg. No new concerns. Patient has a flat affect. 01/17/2023: Patient was seen for a follow-up. Patient is laying comfortably in the bed. Patient was seen initially in the hospital. Subsequently was seen by Dr. Martin Hennessy. Please refer to his notes for details. Patient continues to have left-sided weakness. He denies any headache, any vis ual symptoms. Objective - Vital Signs Vital signs: Vital Signs Temp 97.5 F L 01/19/23 04:00 Pulse 59 L 01/19/23 16:44 Resp 18 01/19/23 16:44 BP 150/85 01/19/23 16:44 Pulse Ox 96 01/19/23 16:44 FiO2 Intake & Output 01/18/23 01/19/23 01/19/23 18:59 06:59 18:59 Intake Total 2218 540 Output Total 225 0 Balance 2218 -225 540 Intake: Intake, IV Titration 900 Amount Sodium Chloride 0.9% 1, 900 000 ml @ 75 mls/hr IV . [id number] LISA Rx#:[id number] Oral 1318 540 Output: Urine 225 Stool 0 Other: Voiding Method Toilet Toilet Toilet Urinal Urinal Urinal # Voids 2 5 - Exam Patient's mental status, speech is mildly dysarthric and language functions are normal. Cranial nerves significant for left facial weakness, central type. On muscle strength testing, the strength is (right/left) deltoid 5/4+, biceps 5/3+4-, triceps 5/4 4-, receivable clerk 5/2-3. Hip flexion 5/4, ankle dorsiflexion 5/5. Sensory touch is equal. Cerebellar function revealed very slow movement with the left side. - Labs CBC & Chem 7: 01/19/23 06:46 01/19/23 06:46 Labs: Abnormal Lab Results - Last 24 Hours (Table) 01/19/23 01/19/23 Range/Units 06:46 06:46 WBC 15.3 H (3.8-10.6) k/uL Neutrophils # 11.4 H (1.3-7.7) k/uL Sodium 135 L (137-145) mmol/L BUN 24 H (9-20) mg/dL Calcium 8.2 L (8.4-10.2) mg/dL Total Protein 5.9 L (6.3-8.2) g/dL Albumin 3.2 L (3.5-5.0) g/dL Assessment and Plan Assessment: * Left hemiparesis, with evidence of enhancing lesion involving the right guerrero radiata adjacent lateral ventricle. MRI brain also revealed some white matter lesion, consistent with demyelinating disease. Probable multiple sclerosis. Rule out tumefactive MS. * Hypertension, not treated * Medication noncompliance * Hyperlipidemia * X tobacco use Plan: * Lumbar puncture performed by anesthesia today. * Patient seems to be getting worse. We will repeat MRI of the brain with and without contrast in the CSF comes back negative. * MR the brain without is reported as area of peripheral restricted diffusion within the right guerrero radiata measuring up to 2.32.1 cm with minimal surrounding vasogenic edema. Further workup with contrast enhancement only imaging of the brain recommended. Findings concerning for primary mass versus infection versus other etiologies. * MRI the brain with gadolinium is reported as there is predominantly peripheral postcontrast enhancement of the guerrero radiata S last sent from semi-old lesion favor to represent mass with other etiologies such as infection felt to be less likely given the lack of vasogenic edema. I personally reviewed the MRI and felt there is a concerning for deymlinating disease. Also there is an addendum by Dr. Abebe initial reading radiologist in which she stated that upon further review with there is bilateral increased signal within the splenium of the corpus callosum. Other differential consideration given multiple lesion within the brain including demyelination which is felt to be higher in the differential given multiple lesions. The larger the diffusion r estriction lesion is felt to be active demyelination the setting of demyelination. * MRI the cervical spine is reported as motion limited exam. No evidence for mass or active demyelination. Cord signal is felt to be maintained. No evidence for significant spinal canal or neuroforaminal stenosis. * MRI thoracic spine with and without contrast revealed motion limited exam. Degeneration changes of the spine worse at T9-T10 with disc space narrowing. No abnormal bony edema identified. No abnormal postcontrast enhancement. No evidence for significant spinal canal or neuroforaminal stenosis. * MRI of the lumbar spine revealed no definitive evidence of disc herniation or significant spinal canal stenosis. No abnormal postcontrast enhancement or evidence of mass. Mild degeneration changes worse at L1-L2 adjoining endplates of mild bony edema at the L2 anterior superior vertebral body. and lumbar. * Dr. Hennessy stopped aspirin and Plavix on 01/12/2023 since the patient does not have a stroke. * KHLOE is negative, Anti-dsDNA is negative, RF <15, ESR: 31, CRP:1.0 and repeat is 0.6, HIV is non reactive , homocysteine: 13.4, Lyme disease is negative, syphilis is non reactive, C and P-ANCA are <1:20, cardiolipin ab are negative, Methylmalonic acid 0.12 (negative), HTLV 1 is negative. * vitamin B12: 368 * Patient completed Solu-Medrol 1 g IVPB daily for 5 days (started on 01/13/23). Patient continues to have significant left sided weakness. Patient started on prednisone 60 mg daily for 10 days. Recommend sugar monitoring and will defer management to primary team. * Oncology team is on board. They ordered CT abdomen and pelvis which is reported as no evidence for mass or lymphadenopathy. Hepatic steatosis. They recommended transfer for neurosurgical evaluation for biopsy of the lesion. In my opinion the patient likely has demyelinating disease and pending further workup but in the meantime he is doing well and actually better after the steroids. From a neurologic perspective no need for urgent neurosurgical evaluation. * PT OT and VENEER REDRIER are consulted * Continue neuro checks * For GI prophylaxis: Started on protonix 40 mg daily.
[2023-01-19 19:33] LABS: Glucose,CSF 76 mg/dL (40-70); Total Protein,CSF 33 mg/dL (12-60)
[2023-01-19 19:43] LABS: Appearance,CSF Clear
[2023-01-19] MEDS: ACETAMINOPHEN TAB 325 MG TAB PO PRN (20:24)
[2023-01-19 20:27] LABS: CSF Tube Number 4; Nucleated Cells, CSF 4 u/L (0-5); Red Blood Cell,CSF 111 u/L (0-10)
[2023-01-19 20:32] LABS: Red Blood Cell, CSF Fresh 100 %
[2023-01-19] MEDS: methocarbamoL 500 MG TAB PO PRN (21:16)
[2023-01-20] MEDS: ACETAMINOPHEN TAB 325 MG TAB PO PRN ×3 (04:56→21:00)
[2023-01-20] MEDS: methocarbamoL 500 MG TAB PO PRN ×2 (05:24→16:55)
[2023-01-20] MEDS ORDERED: HYDROcodone/APAP 5-325MG 1 EACH TAB PO STA (06:44)
[2023-01-20] MEDS: ONDANSETRON 4 MG/2 ML VIAL IVP PRN (09:05)
[2023-01-20] MEDS: PANTOPRAZOLE 40 MG TABLET PO SCH (09:06)
[2023-01-20] MEDS: predniSONE 20 MG TAB PO SCH (09:06)
[2023-01-20] MEDS: ATORVASTATIN 40 MG TAB PO SCH (09:06)
[2023-01-20] MEDS: CYANOCOBALAMIN 500 MCG TAB PO SCH (09:06)
--- NOTE | 2023-01-20 13:25 | P.PN ---
Subjective Progress Note Date: 01/20/23 * 37-year-old gentleman with past medical history of hypertension, obesity presents to the emergency department with complaints of left-sided facial droop and dysarthria and dysphagia. Patient stated he had difficulty moving left and had drooling on the face. 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 He denies following, he denies vision changes headache, nausea, vomiting, abdominal pain, diarrhea. Patient said he was at work and had left-sided weakness was unable to sign through his left hand issue and is usually left-handed * Workup initiated in ER including CT head which was negative for intracranial process * CT angina head and neck negative for acute abnormality * Workup initiated in ER included serum chemistries which were WBC of 10.8 hemoglobin 15 platelet count of 189. PT/INR 0.9 * Serum chemistry showed sodium 137 potassium 4.1, nicely 25 BUN 10 creatinine 0.72 glucose 100 troponin negative TSH 1.4 * 01/12/23: Patient seen and evaluated bedside, patient left upper and lower extremity weakness has improved waiting to go down for MRI * 01/13/23: Patient seen and evaluated bedside accompanied by his ex, patient gave information to discuss medical details in front of her. MRI brain obtained, neurology following, recommend further imaging suspect MS. We'll defer further management to neurology patient in agreement with current management continue patient on aspirin Plavix discontinued as well * 01/14/23: Patient seen and evaluated bedside, MRI cervical and lumbar spine reviewed per report no evidence of demyelinating lesions,, continue patient on high-dose Solu-Medrol, neurology following will need to work with physical therapy. Per neurology suspect MS etiology of patient's symptoms * 01/15/23: Patient seen and evaluated bedside, left-sided weakness has improved. plan discussed with patient in detail explained at this time neurology would want to watch him and no need for transfer. MRI thoracic and lumbar spine reviewed, care plan discussed with Dr. henriquez who is in agreement. Continue patient on high-dose steroid. Continue correctional insulin while on steroids 01/16. Patient seen and examined. Still has weakness of left upper extremity. States he feels better compared to yesterday currently on IV steroids 01/17. Patient seen and examined. Weakness of left upper extremity is improving. Denies any weakness of any extremity. Denies any slurred speech. Vital signs stable 01/18. Patient seen and examined. Completed 5 days of IV steroids. Neurology planning to do LP 01/19. Patient seen and examined. Currently on oral prednisone 60 mg daily. Continues to have improvement in left upper extremity weakness. Denies any slurred speech denies any lightheadedness or dizziness 01/20. Patient seen and examined. Patient had lumbar puncture done yesterday, denies any headache. Denies any slurred speech. Weakness of left upper extremity is improving REVIEW OF SYSTEMS: CONSTITUTIONAL: No fever, no malaise,. CARDIOVASCULAR: No chest pain, no palpitations, no syncope. PULMONARY: No shortness of breath, no cough, GASTROINTESTINAL: No diarrhea, no nausea, no vomiting, no abdominal pain. NEUROLOGICAL: No headaches, no weakness, PHYSICAL EXAMINATION: GENERAL: The patient is alert and oriented x3, not in any acute distress. Well developed, well nourished. HEENT: Pupils are round and equally reacting to light. EOMI. No scleral icterus. No conjunctival pallor. Normocephalic, atraumatic. No pharyngeal erythema. No thyromegaly. CARDIOVASCULAR: S1 and S2 present. No murmurs, rubs, or gallops. PULMONARY: Chest is clear to auscultation, no wheezing or crackles. ABDOMEN: Soft, nontender, nondistended, normoactive bowel sounds. No palpable organomegaly. MUSCULOSKELETAL: No joint swelling or deformity. EXTREMITIES: No cyanosis, clubbing, or pedal edema. NEUROLOGICAL: Cranial nerves II 12 intact, muscle strength is 4/5 in left upper extremity, strength is 5/5 in remaining extremities SKIN: No rashes. Assessment and plan Facial drooping, left-sided weakness suspect MS * Hypertension * Hyperlipidemia * Morbid obesity * Neurology consulted, MRI brain completed MRI cervical thoracic lumbar spine completed, MRI thoracic and lumbar spine with and without contrast ordered>> patient initiated on high-dose steroids, neurology recommended 5 days of IV steroids which have been completed on 01/17. MRI lumbar spine no definitive evidence of disc herniation or significant spinal canal stenosis. No abnormal postcontrast enhancement or evidence of mass. Neurology ordered lumbar puncture which was done on 01/19, started oral prednisone 60 mg daily, want tapering of prednisone for 4 weeks * In regards to concern for MS, CT head CT angiogram head and neck was negative, , continue Lipitor * Workup including ANAs, RF, dsDNA negative, negative for HIV, workup negative for Lyme * MRI brain completed and reviewed by neurology and echocardiogram ordered shows ejection fraction 55% * Follow-up on TSH within normal limits Labs and medication were reviewed.. Continue same treatment. Continue with symptomatic treatment. Resume home medication. Monitor labs and vitals. DVT and GI prophylaxis. Further recommendations as per clinical course of the patient Dictation was produced using [employer] dictation software. please excuse any grammatical, word or spelling errors. Objective - Vital Signs Vital signs: Vital Signs Temp 96.7 F L 01/20/23 11:16 Pulse 57 L 01/20/23 11:16 Resp 17 01/20/23 11:16 BP 123/76 01/20/23 11:16 Pulse Ox 98 01/20/23 11:16 FiO2 Intake & Output 01/19/23 01/20/23 01/20/23 18:59 06:59 18:59 Intake Total 540 118 Output Total 0 0 Balance 540 0 118 Intake: Oral 540 118 Output: Stool 0 0 Other: Voiding Method Toilet Toilet Toilet Urinal Urinal Urinal # Voids 5 2 2 - Labs CBC & Chem 7: 01/19/23 06:46 01/19/23 06:46 Labs: Abnormal Lab Results - Last 24 Hours (Table) 01/19/23 Range/Units 15:19 CSF RBC 111 H (0-10) u/L CSF Glucose 76 H (40-70) mg/dL
[2023-01-21] MEDS: ACETAMINOPHEN TAB 325 MG TAB PO PRN (03:33)
[2023-01-21 04:15] VITALS: RESP 16
[2023-01-21] MEDS: ATORVASTATIN 40 MG TAB PO SCH (08:15)
[2023-01-21] MEDS: CYANOCOBALAMIN 500 MCG TAB PO SCH (08:15)
[2023-01-21] MEDS: PANTOPRAZOLE 40 MG TABLET PO SCH (08:16)
[2023-01-21] MEDS: predniSONE 20 MG TAB PO SCH (08:16)
[2023-01-21 08:22] VITALS: TEMP 97.3
--- NOTE | 2023-01-21 08:38 | P.PN ---
Subjective Progress Note Date: 01/20/23 01/20/2023: Patient was seen for a follow-up. Patient states he is feeling much better. Offers no new complaints. He is more animated today. Appears more pleasant. 01/19/2023: Patient was seen for a follow-up. Patient continues to have left- sided weakness, mainly involving the arm more than the leg. No new concerns. Patient has a flat affect. 01/17/2023: Patient was seen for a follow-up. Patient is laying comfortably in the bed. Patient was seen initially in the hospital. Subsequently was seen by Dr. Martin Hennessy. Please refer to his notes for details. Patient continues to have left-sided weakness. He denies any headache, any visual symptoms. Objective - Vital Signs Vital signs: Vital Signs Temp 96.7 F L 01/20/23 11:16 Pulse 79 01/20/23 15:40 Resp 17 01/20/23 15:40 BP 137/88 01/20/23 15:40 Pulse Ox 98 01/20/23 15:40 FiO2 Intake & Output 01/19/23 01/20/23 01/20/23 18:59 06:59 18:59 Intake Total 540 358 Output Total 0 0 Balance 540 0 358 Intake: Oral 540 358 Output: Stool 0 0 Other: Voiding Method Toilet Toilet Toilet Urinal Urinal Urinal # Voids 5 2 2 - Exam Patient's mental status, speech and language functions are normal. Cranial nerves significant for left facial weakness, central type. On muscle strength testing, the strength is (right/left) deltoid 5/5-, biceps 5/4+, triceps 5/5, cuff setter overlock 5/4. Hip flexion 5/5-, ankle dorsiflexion 5/5. Sensory touch is equal. Cerebellar function revealed very slow movement with the left side. No ataxia. - Labs CBC & Chem 7: 01/19/23 06:46 01/19/23 06:46 Labs: Abnormal Lab Results - Last 24 Hours (Table) 01/19/23 Range/Units 15:19 CSF RBC 111 H (0-10) u/L CSF Glucose 76 H (40-70) mg/dL Assessment and Plan Assessment: * Left hemiparesis, with evidence of enhancing lesion involving the right guerrero radiata adjacent lateral ventricle. MRI brain also revealed some white matter lesion, consistent with demyelinating disease. Probable multiple sclerosis. Rule out tumefactive MS. * Hypertension, not treated * Medication noncompliance * Hyperlipidemia * X tobacco use Plan: * Lumbar puncture revealed CSF WBC 4 which is normal, RBC 111, CSF glucose 76, with CSF proteins normal 33(12-20). Await MS panel, CSF LUCRETIA and cytology. * Patient has improved significantly. Apparently yesterday he had phlebitis in the IV site in the left wrist, therefore he was not able to cooperate well with the examination and has give away weakness due to pain. Now that the IV has been removed, patient was able to cooperate much better with the examination. Strength is much improved. * MR the brain without is reported as area of peripheral restricted diffusion within the right guerrero radiata measuring up to 2.32.1 cm with minimal surrounding vasogenic edema. Further workup with contrast enhancement only imaging of the brain recommended. Findings concerning for primary mass versus infection versus other etiologies. * MRI the brain with gadolinium is reported as there is predominantly peripheral postcontrast enhancement of the guerrero radiata S last sent from semi-old lesion favor to represent mass with other etiologies such as infection felt to be less likely given the lack of vasogenic edema. I personally reviewed the MRI and felt there is a concerning for deymlinating disease. Also there is an addendum by Dr. Abebe initial reading radiologist in which she stated that upon further review with there is bilateral increased signal within the splenium of the corpus callosum. Other differential consideration given multiple lesion within the brain including demyelination which is felt to be higher in the differential given multiple lesions. The larger the diffusion restriction lesion is felt to be active demyelination the setting of de myelination. * MRI the cervical spine is reported as motion limited exam. No evidence for mass or active demyelination. Cord signal is felt to be maintained. No evidence for significant spinal canal or neuroforaminal stenosis. * MRI thoracic spine with and without contrast revealed motion limited exam. Degeneration changes of the spine worse at T9-T10 with disc space narrowing. No abnormal bony edema identified. No abnormal postcontrast enhancement. No evidence for significant spinal canal or neuroforaminal stenosis. * MRI of the lumbar spine revealed no definitive evidence of disc herniation or significant spinal canal stenosis. No abnormal postcontrast enhancement or evidence of mass. Mild degeneration changes worse at L1-L2 adjoining endplates of mild bony edema at the L2 anterior superior vertebral body. and lumbar. * Dr. Hennessy stopped aspirin and Plavix on 01/12/2023 since the patient does not have a stroke. * KHLOE is negative, Anti-dsDNA is negative, RF <15, ESR: 31, CRP:1.0 and repeat is 0.6, HIV is non reactive , homocysteine: 13.4, Lyme disease is negative, syphilis is non reactive, C and P-ANCA are <1:20, cardiolipin ab are negative, Methylmalonic acid 0.12 (negative), HTLV 1 is negative. * vitamin B12: 368 * Patient completed Solu-Medrol 1 g IVPB daily for 5 days (started on 01/13/23). Patient continues to have significant left sided weakness. Patient started on prednisone 60 mg daily for 10 days, then taper down by 10 mg daily until off. Recommend sugar monitoring and will defer management to primary team. * CT of chest abdomen and pelvis revealed no evidence for mass or lymphadenopathy. Hepatic steatosis. * PT OT and CORE STRIPPER are consulted * For GI prophylaxis: Started on protonix 40 mg daily. * Neurologically clear for discharge. Recommend follow-up with neurologist outpatient within 1-2 weeks. Addendum: 02/01/2023 CSF MS panel revealed IgG synthesis rate 10.07/3.0, IgG index 1.05/0.77, CSF oligoclonal bands are positive. CSF is positive for 2 or more oligoclonal ba nds. Since these bands are not seen in the corresponding serum, as is considered a positive oligoclonal banding study. CSF cytology negative. CSF MBP is < 2.0, normal. CSF LUCRETIA level is negative < 5. Tried to call patient multiple times, did not answer. Spoke to patient's mother and informed her the results of CSF that it is positive for MS and that he needs to follow up with neurologist for custodial management of MS.
--- NOTE | 2023-01-21 09:43 | P.DS ---
Providers Date of admission: 01/10/23 18:56 Expected date of discharge: 01/21/23 Attending physician: Arias Diaz Consults: 01/10/23 18:56 Consult Physician Urgent Consulting Provider: Nelli Holguin Consult Reason/Comments: CVA onset 2 days ago Do you want consulting provider notified?: Yes 01/12/23 16:27 Consult Physician Urgent Consulting Provider: Michelet Medina Consult Reason/Comments: brain mass. r/o other masses Do you want consulting provider notified?: Yes Primary care physician: Stated None Hospital Course: Discharge diagnoses; Facial drooping, left-sided weakness suspect MS * Hypertension * Hyperlipidemia * Morbid obesity Hospital course; * 37-year-old gentleman with past medical history of hypertension, obesity pr esents to the emergency department with complaints of left-sided facial droop and dysarthria and dysphagia. Patient stated he had difficulty moving left and had drooling on the face. 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 He denies following, he denies vision changes headache, nausea, vomiting, abdominal pain, diarrhea. Patient said he was at work and had left-sided weakness was unable to sign through his left hand issue and is usually left- handed * Workup initiated in ER including CT head which was negative for intracranial process * CT angina head and neck negative for acute abnormality * Workup initiated in ER included serum chemistries which were WBC of 10.8 hemoglobin 15 platelet count of 189. PT/INR 0.9 * Serum chemistry showed sodium 137 potassium 4.1, nicely 25 BUN 10 creatinine 0.72 glucose 100 troponin negative TSH 1.4 * 01/12/23: Patient seen and evaluated bedside, patient left upper and lower extremity weakness has improved waiting to go down for MRI * 01/13/23: Patient seen and evaluated bedside accompanied by his ex, patient gave information to discuss medical details in front of her. MRI brain obtained, neurology following, recommend further imaging suspect MS. We'll defer further management to neurology patient in agreement with current management continue patient on aspirin Plavix discontinued as well * 01/14/23: Patient seen and evaluated bedside, MRI cervical and lumbar spine reviewed per report no evidence of demyelinating lesions,, continue patient on high-dose Solu-Medrol, neurology following will need to work with physical therapy. Per neurology suspect MS etiology of patient's symptoms * 01/15/23: Patient seen and evaluated bedside, left-sided weakness has improved. plan discussed with patient in detail explained at this time neurology would want to watch him and no need for transfer. MRI thoracic and lumbar spine reviewed, care plan discussed with Dr. henriquez who is in agreement. Continue patient on high-dose steroid. Continue correctional insulin while on steroids 01/16. Patient seen and examined. Still has weakness of left upper extremity. States he feels better compared to yesterday currently on IV steroids 01/17. Patient seen and examined. Weakness of left upper extremity is improving. Denies any weakness of any extremity. Denies any slurred speech. Vital signs stable 01/18. Patient seen and examined. Completed 5 days of IV steroids. Neurology planning to do LP 01/19. Patient seen and examined. Currently on oral prednisone 60 mg daily. Continues to have improvement in left upper extremity weakness. Denies any slurred speech denies any lightheadedness or dizziness 01/20. Patient seen and examined. Patient had lumbar puncture done yesterday, denies any headache. Denies any slurred speech. Weakness of left upper extremity is improving 01/21. Patient seen and examined. Neurology cleared the patient for discharge, being discharged on tapering dose of prednisone. Outpatient follow-up with neurology PHYSICAL EXAMINATION: GENERAL: The patient is alert and oriented x3, not in any acute distress. Well developed, well nourished. HEENT: Pupils are round and equally reacting to light. EOMI. No scleral icterus. No conjunctival pallor. Normocephalic, atraumatic. No pharyngeal erythema. No thyromegaly. CARDIOVASCULAR: S1 and S2 present. No murmurs, rubs, or gallops. PULMONARY: Chest is clear to auscultation, no wheezing or crackles. ABDOMEN: Soft, nontender, nondistended, normoactive bowel sounds. No palpable organomegaly. MUSCULOSKELETAL: No joint swelling or deformity. EXTREMITIES: No cyanosis, clubbing, or pedal edema. NEUROLOGICAL: Gross neurological examination did not reveal any focal deficits. Muscle strength in left upper extremity has improved, 5/ 5 in all extremities SKIN: No rashes. Dictation was produced using [employer] dictation software. please excuse any grammatical, word or spelling errors. Patient Condition at Discharge: Stable Plan - Discharge Summary New Discharge Prescriptions: New Atorvastatin [Lipitor] 40 mg PO DAILY 30 Days #30 tab predniSONE See Taper PO DAILY 11 Days #51 tab Cyanocobalamin [Vitamin B-12] 500 mcg PO DAILY 30 Days #30 tab Discharge Medication List Atorvastatin [Lipitor] 40 mg PO DAILY 30 Days #30 tab 01/21/23 [Rx] Cyanocobalamin [Vitamin B-12] 500 mcg PO DAILY 30 Days #30 tab 01/21/23 [Rx] predniSONE See Taper PO DAILY 11 Days #51 tab 01/21/23 [Rx] Follow up Appointment(s)/Referral(s): None,Stated [Primary Care Provider] - 1-2 days Areli Carcamo MD [Medical Doctor] - 1 Week Discharge Disposition: HOME SELF-CARE
[2023-01-21] MEDS: ONDANSETRON 4 MG/2 ML VIAL IVP PRN (10:25)
[2023-01-21 10:40] VITALS: BP 141/84; PULSE 72
[2023-01-21 14:10] LABS: IgG - CSF 4.8 mg/dL (0.0 - 3.4); IgG Synthesis Rate 10.07 mg/day (0.00 - 3.00); IgG/Albumin Index (CSF) 1.05 (0.00 - 0.77); Immunoglobulin G 973 mg/dL (700 - 1600)
== END 2023-01-21 13:40 | disposition home or self-care (01) | DRG 59 ==
LOC: EC 15:18 → 3SCARD 18:56
PROVIDERS: ADMIT Hospitalist; ATTEND Hospitalist
PROC: 009U3ZX Drainage of Spinal Canal, Percutaneous Approach, Diagnostic (ICD-10-PCS; principal; 2023-01-19)
PROC: 05HC33Z Insertion of Infusion Device into Left Basilic Vein, Percutaneous Approach (ICD-10-PCS; 2023-01-20 14:40)
DX: G35 Multiple sclerosis (principal); T80.1XXA Vascular complications following infusion, transfusion and therapeutic injection, initial encounter; I80.8 Phlebitis and thrombophlebitis of other sites; G81.94 Hemiplegia, unspecified affecting left nondominant side; G93.9 Disorder of brain, unspecified; R29.810 Facial weakness; I10 Essential (primary) hypertension; Z68.36 Body mass index [BMI] 36.0-36.9, adult; R32 Unspecified urinary incontinence; R35.0 Frequency of micturition; R47.1 Dysarthria and anarthria; F41.9 Anxiety disorder, unspecified; R13.10 Dysphagia, unspecified; I45.10 Unspecified right bundle-branch block; M54.50 Low back pain, unspecified; E78.00 Pure hypercholesterolemia, unspecified; E66.01 Morbid (severe) obesity due to excess calories; Z71.3 Dietary counseling and surveillance; Z91.148 Patient's other noncompliance with medication regimen for other reason; Z87.891 Personal history of nicotine dependence
CPT/HCPCS: 36410; 36415; 62270; 70450; 70496; 70498; 70551; 70552; 71046; 71260; 72156; 72157; 72158; 74177; 76937; 80048; 80053; 80061; 80306; 81003; 82040; 82042; 82164; 82550; 82607; 82784; 82945; 83036; 83090; 83735; 83873; 83916; 83921; 84157; 84443; 84484; 85025; 85027; 85610; 85613; 85652; 85730; 86038; 86140; 86146; 86147; 86225; 86255; 86431; 86618; 86780; 86790; 87390; 88108; 89050; 93005; 93306; 99291

== ENCOUNTER 2023-01-23 10:26 | Emergency (ER) | payer OTHER ==
[2023-01-23] MEDS ORDERED: CAFFEINE-SODIUM BENZOATE 500 MG in SODIUM CHLORIDE 0.9% 1,000 ML IVPB ONE (11:33)
[2023-01-23] MEDS ORDERED: SODIUM CHLORIDE 0.9% 1,000 ML IV STA ×2 (11:35→14:18)
[2023-01-23] MEDS ORDERED: ONDANSETRON 4 MG/2 ML VIAL IVP STA (11:35)
--- NOTE | 2023-01-23 12:13 | ED ---
Headache HPI - General Chief Complaint: Recheck/Abnormal Lab/Rx Stated Complaint: dizziness and back pain Time Seen by Provider: 01/23/23 10:55 Source: patient, RN notes reviewed Mode of arrival: ambulatory Limitations: no limitations - History of Present Illness Initial Comments: This is a 37-year-old male who presents to the emergency department for a headache, back pain, and dizziness. He initially presented to the emergency department on 01/10 for left-sided weakness as there was concern for a CVA. Patient underwent CT and MRI scans of the brain as well as neurology consultation. A CVA was then felt to be less likely and it was felt that the patient may have multiple sclerosis. He had a lumbar puncture on 01/19, and states that ever since then he has been feeling unwell. A couple of days ago he started to develop a severe headache and back pain along with dizziness and nausea. Symptoms are worse when sitting or standing up. He is taking Tylenol with no relief in symptoms. He is also unable to keep anything down as a result of the nausea. MD Complaint: headache - Related Data Home Medications Medication Instructions Recorded Confirmed predniSONE See Taper PO DAILY 01/23/23 01/23/23 Previous Rx's Medication Instructions Recorded Atorvastatin [Lipitor] 40 mg PO DAILY 30 Days #30 tab 01/21/23 Cyanocobalamin [Vitamin B-12] 500 mcg PO DAILY 30 Days #30 tab 01/21/23 Ketorolac [Toradol] 10 mg PO Q6HR PRN #15 tab 01/23/23 Lidocaine 5% Patch [Lidoderm 5% 1 patch TOPICAL DAILY PRN #30 patch 01/23/23 Patch] Ondansetron Odt [Zofran Odt] 4 mg PO Q8HR PRN #20 tab 01/23/23 Allergies Allergy/AdvReac Type Severity Reaction Status Date / Time No Known Allergies Allergy Verified 01/23/23 13:45 Review of Systems ROS Statement: Those systems with pertinent positive or pertinent negative responses have been documented in the HPI. ROS Other: All systems not noted in ROS Statement are negative. Past Medical History Past Medical History: Hypertension History of Any Multi-Drug Resistant Organisms: None Reported Past Surgical History: No Surgical Hx Reported Past Psychological History: No Psychological Hx Reported Smoking Status: Never smoker Past Alcohol Use History: None Reported Past Drug Use History: None Reported - Past Family History Father Family Medical History: Coronary Artery Disease (CAD), CVA/TIA General Exam Limitations: no limitations General appearance: alert, in no apparent distress Head exam: Present: atraumatic, normocephalic, normal inspection Eye exam: Present: normal appearance, PERRL, EOMI. Absent: scleral icterus, conjunctival injection, periorbital swelling Respiratory exam: Present: normal lung sounds bilaterally. Absent: respiratory distress, wheezes, rales, rhonchi, stridor Cardiovascular Exam: Present: regular rate, normal rhythm, normal heart sounds. Absent: systolic murmur, diastolic murmur, rubs, gallop, clicks Back exam: Present: other (Well-healing puncture wound to the lumbar spine without any evidence of surrounding erythema, drainage, ecchymosis, swelling, or increased heat.) Neurological exam: Present: alert, oriented X3, CN II-XII intact Psychiatric exam: Present: normal affect, normal mood Skin exam: Present: warm, dry, intact, normal color. Absent: rash Course Vital Signs 01/23/23 01/23/23 01/23/23 10:29 11:19 12:53 Temperature 98.1 F Pulse Rate 84 70 80 Respiratory 20 20 18 Rate Blood Pressure 153/98 143/99 148/92 O2 Sat by Pulse 99 95 99 Oximetry 01/23/23 01/23/23 01/23/23 14:17 14:42 16:03 Temperature 98.3 F 97.9 F Pulse Rate 58 L 63 75 Respiratory 18 18 18 Rate Blood Pressure 146/94 148/89 144/89 O2 Sat by Pulse 98 97 96 Oximetry Medical Decision Making - Medical Decision Making This is a 37-year-old male who presents to the emergency department for a headache. Was pt. sent in by a medical professional or institution? @ -His PCP Did you speak to anyone other than the patient for history? @ -No Did you review nursing and triage notes? @ -Yes, and I agree, it is accurate with regards to the patient's symptoms. Were old charts reviewed? @ -No Differential Diagnosis? @ -Differential Headache: Migraine, tension, cluster, carbon monoxide, central venous thrombosis, pension karma temporal arteritis, acute closure glaucoma, intercranial hemorrhage, mastoiditis, sinusitis, head injury, this is not meant to be an all-inclusive list. EKG interpreted by me (3pts min.)? @ -EKG interpreted by me demonstrating the following: Sinus rhythm. Vent ricular rate 79 beats per minute, [place] interval 148 ms, QRS duration 101 ms, QTC 391 ms. X-rays interpreted by me (1pt min.)? @ -Not obtained CT interpreted by me (1pt min.)? @ -Not obtained U/S interpreted by me (1pt. min.)? @ -Not obtained What testing was considered but not performed? (CT, X-rays, U/S, labs)? Why? @ -None What meds were considered but not given? Why? @ -None Did you discuss the management of the patient with other professionals? @ -No Did you reconcile home meds? @ -No Was smoking cessation discussed for >3mins.? @ -No Was critical care preformed (if so, how long)? @ -No Were there social determinants of health that impacted care today? How? (Homelessness, low income, unemployed, alcoholism, drug addiction, trans portation, low edu. Level, literacy, decrease access to med. care, correction, rehab)? @ -No Was there de-escalation of care discussed even if they declined? (Discuss DNR or withdrawal of care, Hospice)? @ -No What co-morbidities impacted this encounter? (DM, HTN, Smoking, COPD, CAD, Cancer, CVA, Hep., AIDS, mental health diagnosis, sleep apnea, morbid obesity)? @ -Demyelinating disease of unclear origin, possibly MS Was patient admitted / discharged? @ -Discharged. Lab work obtained revealing leukocytosis likely secondary to current high-dose steroid use. Lactic acid is also elevated at 3.4, which also may be related to the ongoing nausea and vomiting causing dehydration. Patient treated with 500 mg of caffeine benzoate, IV fluids, and Zofran, with significa nt relief in symptoms. He did continue to have mild discomfort to the back, however the headache had resolved. He was then treated with Toradol and a lidocaine patch, which he also felt was beneficial. He then felt stable for discharge home. Advised [id number] caffeine as needed for any additional headaches. [place] [employer] advised 300-500 mg once or twice a day, not to exceed 900 mg in 24 hours. Rx for lidocaine patches, Toradol, and Zofran provided with dosing instructions reviewed for additional symptomatic management. Patient otherwise discharged home in stable condition Undiagnosed new problem with uncertain prognosis? @ -None Drug Therapy requiring intensive monitoring for toxicity (Heparin, Nitro, Insulin, Cardizem)? @ -None Were any procedures done? @ -None Diagnosis/symptom? @ -Spinal headache, dizziness, nausea and vomiting Acute, or Chronic, or Acute on Chronic? @ -Acute Uncomplicated (without systemic symptoms) or Complicated (systemic symptoms)? @ -Complicated Side effects of treatment? @ -None Exacerbation, Progression, or Severe Exacerbation] @ -Not applicable Poses a threat to life or bodily function? @ -Unlikely Return precautions reviewed in depth, the patient is instructed to return to the emergency department with any new, worsening, or concerning symptoms. Patient verbalized understanding. This case was discussed in detail with the attending ED physician, Dr. Hanson. Presentation, findings, and treatment plan discussed in detail as well. - Lab Data Result diagrams: 01/23/23 12:05 01/23/23 12:05 Lab Results 01/23/23 01/23/23 01/23/23 Range/Units 12:05 12:05 12:05 WBC 28.5 H (3.8-10.6) k/uL RBC 6.88 H (4.30-5.90) m/uL Hgb 18.7 H D (13.0-17.5) gm/dL Hct 55.2 H (39.0-53.0) % MCV 80.2 (80.0-100.0) fL MCH 27.2 (25.0-35.0) pg MCHC 33.9 (31.0-37.0) g/dL RDW 14.1 (11.5-15.5) % Plt Count 311 (150-450) k/uL MPV 7.8 Neutrophils % 81 % Lymphocytes % 14 % Monocytes % 5 % Eosinophils % 0 % Basophils % 0 % Neutrophils # 23.0 H (1.3-7.7) k/uL Lymphocytes # 3.9 (1.0-4.8) k/uL Monocytes # 1.3 H (0-1.0) k/uL Eosinophils # 0.1 (0-0.7) k/uL Basophils # 0.1 (0-0.2) k/uL Sodium 133 L (137-145) mmol/L Potassium 4.6 (3.5-5.1) mmol/L Chloride 99 (98-107) mmol/L Carbon Dioxide 18 L (22-30) mmol/L Anion Gap 16 mmol/L BUN 20 (9-20) mg/dL Creatinine 0.72 (0.66-1.25) mg/dL Est GFR (CKD-EPI)AfAm >90 (>60 ml/min/1.73 sqM) Est GFR (CKD-EPI)NonAf >90 (>60 ml/min/1.73 sqM) Glucose 132 H (74-99) mg/dL Lactic Ac Sepsis Rflx Plasma Lactic Acid Kush 3.2 H* (0.7-2.0) mmol/L Calcium 10.4 H (8.4-10.2) mg/dL Total Bilirubin 1.0 (0.2-1.3) mg/dL AST 24 (17-59) U/L ALT 36 (4-49) U/L Alkaline Phosphatase 54 (38-126) U/L Total Protein 7.7 (6.3-8.2) g/dL Albumin 4.4 (3.5-5.0) g/dL 01/23/23 Range/Units 12:31 WBC (3.8-10.6) k/uL RBC (4.30-5.90) m/uL Hgb (13.0-17.5) gm/dL Hct (39.0-53.0) % MCV (80.0-100.0) fL MCH (25.0-35.0) pg MCHC (31.0-37.0) g/dL RDW (11.5-15.5) % Plt Count (150-450) k/uL MPV Neutrophils % % Lymphocytes % % Monocytes % % Eosinophils % % Basophils % % Neutrophils # (1.3-7.7) k/uL Lymphocytes # (1.0-4.8) k/uL Monocytes # (0-1.0) k/uL Eosinophils # (0-0.7) k/uL Basophils # (0-0.2) k/uL Sodium (137-145) mmol/L Potassium (3.5-5.1) mmol/L Chloride (98-107) mmol/L Carbon Dioxide (22-30) mmol/L Anion Gap mmol/L BUN (9-20) mg/dL Creatinine (0.66-1.25) mg/dL Est GFR (CKD-EPI)AfAm (>60 ml/min/1.73 sqM) Est GFR (CKD-EPI)NonAf (>60 ml/min/1.73 sqM) Glucose (74-99) mg/dL Lactic Ac Sepsis Rflx Y Plasma Lactic Acid Kush (0.7-2.0) mmol/L Calcium (8.4-10.2) mg/dL Total Bilirubin (0.2-1.3) mg/dL AST (17-59) U/L ALT (4-49) U/L Alkaline Phosphatase (38-126) U/L Total Protein (6.3-8.2) g/dL Albumin (3.5-5.0) g/dL Disposition Clinical Impression: Spinal puncture headache, Nausea & vomiting, Dizziness Disposition: HOME SELF-CARE Instructions (If sedation given, give patient instructions): Lumbar Puncture (ED) Additional Instructions: Return to the emergency department with any new, worsening, or concerning symptoms. I was unable to prescribe plain caffeine pills. However, you can purchase these [id number]. This should be taken as 300 mg up to twice a day or 500 mg once a day, with an additional 300 mg if needed. Do not consume more than 900 mg within 24 hours. You can take the Toradol up to every 6 hours as needed for pain relief. You may take this with Tylenol as well, however do not take it with any other anti-inflammatories such as ibuprofen, take one of the other. You can apply the lidocaine patches daily for additional relief. The Zofran can be taken up to every 8 hours as needed for nausea and vomiting. Follow up with your primary care provider in 1-2 days. Prescriptions: Lidocaine 5% Patch [Lidoderm 5% Patch] 1 patch TOPICAL DAILY PRN #30 patch PRN Reason: Pain Ketorolac [Toradol] 10 mg PO Q6HR PRN #15 tab PRN Reason: Pain Ondansetron Odt [Zofran Odt] 4 mg PO Q8HR PRN #20 tab PRN Reason: Nausea And Vomiting Is patient prescribed a controlled substance at d/c from ED?: No Referrals: Alex Guo MD [Primary Care Provider] - 1-2 days
[2023-01-23 12:15] LABS: Basophils # (A) 0.1 k/uL (0-0.2); Basophils % (A) 0 %; Eosinophils # (A) 0.1 k/uL (0-0.7); Eosinophils % (A) 0 %; Lymphocytes # (A) 3.9 k/uL (1.0-4.8); Lymphocytes % (A) 14 %; MCH 27.2 pg (25.0-35.0); MCHC 33.9 g/dL (31.0-37.0); MCV 80.2 fL (80.0-100.0); Mean Platelet Volume 7.8; Monocytes # (A) 1.3 k/uL (0-1.0); Monocytes % (A) 5 %; Neutrophils % (A) 81 %; Platelet Count 311 k/uL (150-450); RBC 6.88 m/uL (4.30-5.90); RDW 14.1 % (11.5-15.5); WBC 28.5 k/uL (3.8-10.6)
[2023-01-23 12:27] LABS: ALT 36 U/L (4-49); African American GFR (CKD) >90 (>60 ml/min/1.73 sqM); Albumin 4.4 g/dL (3.5-5.0); Anion Gap 16 mmol/L; Blood Urea Nitrogen 20 mg/dL (9-20); Calcium 10.4 mg/dL (8.4-10.2); Carbon Dioxide 18 mmol/L (22-30); Chloride 99 mmol/L (98-107); Glucose 132 mg/dL (74-99); Non-African American GFR(CKD) >90 (>60 ml/min/1.73 sqM); Sodium 133 mmol/L (137-145); Total Protein 7.7 g/dL (6.3-8.2)
[2023-01-23 12:28] LABS: AST 24 U/L (17-59); Alkaline Phosphatase 54 U/L (38-126); Potassium 4.6 mmol/L (3.5-5.1)
[2023-01-23 12:34] LABS: HCT 55.2 % (39.0-53.0)
[2023-01-23 12:35] LABS: HGB 18.7 gm/dL (13.0-17.5)
[2023-01-23 13:00] VITALS: RESP 18
[2023-01-23] MEDS ORDERED: LIDOCAINE 5% PATCH TOPICAL ONE (14:18)
[2023-01-23] MEDS ORDERED: KETOROLAC 15 MG/ML 1 ML VIAL IVP STA (14:18)
[2023-01-23] MEDS ORDERED: MORPHINE SULFATE 2 MG/ML SYRINGE IVP STA (14:18)
[2023-01-23] MEDS ORDERED: traMADol 50 MG STARTER PACK 3 TAB BTL PO STA (15:49)
[2023-01-23] MEDS ORDERED: DEXAMETHASONE SOD PHOSPHATE 10 MG/ML 1 ML VIAL IVP STA (15:56)
[2023-01-23 16:22] VITALS: BP 144/89; PULSE 75; TEMP 97.9
== END 2023-01-23 16:25 | disposition home or self-care (01) ==
LOC: EC 10:26
DX: S01.93XA Puncture wound without foreign body of unspecified part of head, initial encounter (principal); I10 Essential (primary) hypertension; Z79.52 Long term (current) use of systemic steroids; X58.XXXA Exposure to other specified factors, initial encounter
CPT/HCPCS: 36415; 80053; 83605; 85025; 99284; 96374; 96375 ×3; 96361 ×2; J1100; J2405; J1885

== ENCOUNTER 2023-01-30 17:23 | Emergency (ER) | payer OTHER ==
[2023-01-30 17:49] VITALS: TEMP 97.6
--- NOTE | 2023-01-30 17:58 | ED ---
General Adult HPI - General Chief complaint: Nausea/Vomiting/Diarrhea Stated complaint: abd pain Time Seen by Provider: 01/30/23 17:49 Source: patient Mode of arrival: ambulatory Limitations: no limitations - History of Present Illness Initial comments: Patient presents to the ED with his family for evaluation. Patient states that he has had generalized abdominal pain, nausea and vomiting since yesterday. Patient also states that he is become somewhat "dizzy" since the onset of these symptoms. Patient denies known sick contact. Patient denies fever or chills, headache, focal numbness/weakness/neuro deficit, otalgia, chest pain or pressure, dyspnea, cough or cold symptoms, palpitations, syncope, back or flank pain, diarrhea or constipation, bloody or melanotic stool, hematemesis, dysuria or urinary symptoms, or any other symptoms or complaints. - Related Data Home Medications Medication Instructions Recorded Confirmed predniSONE See Taper PO DAILY 01/23/23 01/23/23 Lidocaine 5% Patch [Lidoderm 5% 1 patch TRANSDERM DAILY PRN 01/30/23 01/30/23 Patch] tiZANidine [Zanaflex] 4 mg PO TID PRN 01/30/23 01/30/23 Previous Rx's Medication Instructions Recorded Atorvastatin [Lipitor] 40 mg PO DAILY 30 Days #30 tab 01/21/23 Cyanocobalamin [Vitamin B-12] 500 mcg PO DAILY 30 Days #30 tab 01/21/23 Ketorolac [Toradol] 10 mg PO Q6HR PRN #15 tab 01/23/23 Ondansetron Odt [Zofran Odt] 4 mg PO Q8HR PRN #20 tab 01/23/23 Allergies Allergy/AdvReac Type Severity Reaction Status Date / Time No Known Allergies Allergy Verified 01/30/23 21:10 Review of Systems ROS Statement: Those systems with pertinent positive or pertinent negative responses have been documented in the HPI. ROS Other: All systems not noted in ROS Statement are negative. Past Medical History Past Medical History: CVA/TIA, Hypertension History of Any Multi-Drug Resistant Organisms: None Reported Past Surgical History: No Surgical Hx Reported Past Psychological History: No Psychological Hx Reported Smoking Status: Never smoker Past Alcohol Use History: None Reported Past Drug Use History: None Reported - Past Family History Father Family Medical History: Coronary Artery Disease (CAD), CVA/TIA General Exam Limitations: no limitations General appearance: alert Head exam: Present: normocephalic Eye exam: Present: normal appearance, PERRL, EOMI. Absent: nystagmus ENT exam: Present: mucous membranes moist Neck exam: Present: other (Trachea is in midline) Respiratory exam: Present: normal lung sounds bilaterally. Absent: respiratory distress, wheezes, rales, rhonchi, stridor Cardiovascular Exam: Present: regular rate, normal rhythm, normal heart sounds, other (Normal radial pulses bilaterally) GI/Abdominal exam: Present: soft, normal bowel sounds, other (Obese abdomen; mild generalized abdominal tenderness). Absent: guarding, rebound Extremities exam: Absent: pedal edema Back exam: Absent: CVA tenderness (R), CVA tenderness (L) Neurological exam: Present: alert, oriented X3 Skin exam: Present: warm, dry, normal color Course Vital Signs 01/30/23 01/30/23 01/30/23 17:25 17:29 20:20 Temperature 97.6 F Pulse Rate 98 85 84 Respiratory 18 18 17 Rate Blood Pressure 151/108 156/107 142/86 O2 Sat by Pulse 98 100 100 Oximetry - Reevaluation(s) Reevaluation #1: 01/30/23 21:10 Patient reports improvement of his nausea and abdominal pain with ED treatment. Patient denies development of any new symptoms while in the ED. Patient's abdomen remains soft and without any surgical signs on exam. Patient and ex- are aware the patient's test results. Patient feels comfortable being discharged home with his ex- at this time. He was counseled about nausea/vomiting and abdominal pain. He was clearly explained return and follow- up instructions. He was instructed to follow up closely with his primary care provider. He feels comfortable with this plan. Patient states that he has Zofran at home. Medical Decision Making - Medical Decision Making Was pt. sent in by a medical professional or institution (, PA, SPORTS LEADERSHIP INSTRUCTOR, urgent care, hospital, or fdc...) When possible be specific @ -No Did you speak to anyone other than the patient for history (EMS, parent, family, police, friend...)? What history was obtained from this source @ -No Did you review nursing and triage notes (agree or disagree)? Why? @ -I reviewed and agree with nursing and triage notes Were old charts reviewed (outside hosp., previous admission, EMS record, old EKG, old radiological studies, urgent care reports/EKG's, fdc records)? Report findings @ -No old charts were reviewed Differential Diagnosis (chest pain, altered mental status, abdominal pain women, abdominal pain men, vaginal bleeding, weakness, fever, dyspnea, syncope, headache, dizziness, GI bleed, back pain, seizure, CVA, palpatations, mental health, musculoskeletal)? @ -Differential Abdominal Pain Men: Appendicitis, biliary disease, diverticulitis, colitis, pancreatitis, hepatitis, gastroenteritis, food poisoning, bowel obstruction, inflammatory bowel, elect rolyte abnormality, renal disease, peptic ulcer disease, perforated viscus, drug abuse, viral illness, this is not meant to be an all-inclusive list EKG interpreted by me (3pts min.). @ -None done X-rays interpreted by me (1pt min.). @ -None done CT interpreted by me (1pt min.). @ -CT abdomen/pelvis with IV contrast was reviewed myself and shows no acute abnormality. I agree with the radiologist's interpretation as above. U/S interpreted by me (1pt. min.). @ -None done What testing was considered but not performed or refused? (CT, X-rays, U/S, labs)? Why? @ -None What meds were considered but not given or refused? Why? @ -None Did you discuss the management of the patient with other professionals (professionals i.e. , PA, SPORTS LEADERSHIP INSTRUCTOR, lab, RT, psych nurse, social sciences lecturer, communication equipment mechanic, teacher, loan review officer, case finishing machine adjuster)? Give summary @ -No Was smoking cessation discussed for >3mins.? @ -No Was critical care preformed (if so, how long)? @ -No Were there social determinants of health that impacted care today? How? (Homelessness, low income, unemployed, alcoholism, drug addiction, transportation, low edu. Level, literacy, decrease access to med. care, care home, rehab)? @ -No Was there de-escalation of care discussed even if they declined (Discuss DNR or withdrawal of care, Hospice)? DNR status @ -No What co-morbidities impacted this encounter? (DM, HTN, Smoking, COPD, CAD, Cancer, CVA, ARF, Chemo, Hep., AIDS, mental health diagnosis, sleep apnea, morbid obesity)? @ -None Was patient admitted / discharged? Hospital course, mention meds given and route, prescriptions, significant lab abnormalities, going to OR and other pertinent info. @ -Patient was treated with IV fluids and IV analgesics/antiemetics in the ED with improvement in his symptoms. Patient was noted to have leukocytosis with generalized abdominal tenderness on exam. A CT abdomen/pelvis with IV contrast was obtained and reveals no acute abnormality. Patient has no surgical signs on examination. I do not suspect an emergent medical or surgical condition at this time. Will discharge patient home with his ex- at this time. Patient was counseled about abdominal pain, nausea and vomiting, and he was instructed to drink plenty of fluids to stay hydrated. Patient states that he has Zofran at home. Patient was instructed to follow up closely with his primary care provider. Strict return instructions were provided. Patient feels comfortable with this plan. Undiagnosed new problem with uncertain prognosis? @ -No Drug Therapy requiring intensive monitoring for toxicity (Heparin, Nitro, Insulin, Cardizem)? @ -No Were any procedures done? @ -No Diagnosis/symptom? @ -Abdominal pain, nausea and vomiting Acute, or Chronic, or Acute on Chronic? @ -Acute Uncomplicated (without systemic symptoms) or Complicated (systemic symptoms)? @ -default Side effects of treatment? @ -No Exacerbation, Progression, or Severe Exacerbation? @ -No Poses a threat to life or bodily function? How? (Chest pain, [place], [place], pneumonia, PE, COPD, DKA, ARF, appy, cholecystitis, CVA, Diverticulitis, Homicidal, Suic idal, threat to staff... and all critical care pts) @ -No - Lab Data Result diagrams: 01/30/23 18:27 01/30/23 18:27 Lab Results 01/30/23 01/30/23 01/30/23 Range/Units 18:27 18:27 18:27 WBC 19.0 H (3.8-10.6) k/uL RBC 6.77 H (4.30-5.90) m/uL Hgb 18.2 H (13.0-17.5) gm/dL Hct 54.0 H (39.0-53.0) % MCV 79.8 L (80.0-100.0) fL MCH 26.8 (25.0-35.0) pg MCHC 33.6 (31.0-37.0) g/dL RDW 14.0 (11.5-15.5) % Plt Count 236 (150-450) k/uL MPV 7.4 Neutrophils % 74 % Lymphocytes % 21 % Monocytes % 4 % Eosinophils % 1 % Basophils % 0 % Neutrophils # 14.0 H (1.3-7.7) k/uL Lymphocytes # 3.9 (1.0-4.8) k/uL Monocytes # 0.8 (0-1.0) k/uL Eosinophils # 0.1 (0-0.7) k/uL Basophils # 0.0 (0-0.2) k/uL Sodium 134 L (137-145) mmol/L Potassium 4.3 (3.5-5.1) mmol/L Chloride 98 (98-107) mmol/L Carbon Dioxide 20 L (22-30) mmol/L Anion Gap 16 mmol/L BUN 19 (9-20) mg/dL Creatinine 0.80 (0.66-1.25) mg/dL Est GFR (CKD-EPI)AfAm >90 (>60 ml/min/1.73 sqM) Est GFR (CKD-EPI)NonAf >90 (>60 ml/min/1.73 sqM) Glucose 105 H (74-99) mg/dL Calcium 10.5 H (8.4-10.2) mg/dL Total Bilirubin 1.2 (0.2-1.3) mg/dL AST 23 (17-59) U/L ALT 44 (4-49) U/L Alkaline Phosphatase 61 (38-126) U/L Total Protein 7.6 (6.3-8.2) g/dL Albumin 4.6 (3.5-5.0) g/dL Lipase 122 (23-300) U/L Urine Color Light Yellow Urine Appearance Clear (Clear) Urine pH 7.5 (5.0-8.0) Ur Specific [place] 1.020 (1.001-1.035) Urine Protein Negative (Negative) Urine Glucose (UA) Negative (Negative) Urine Ketones Negative (Negative) Urine Blood Negative (Negative) Urine Nitrite Negative (Negative) Urine Bilirubin Negative (Negative) Urine Urobilinogen <2.0 (<2.0) mg/dL Ur Leukocyte Esterase Negative (Negative) Urine Opiates Screen Not Detected (NotDetected) Ur Oxycodone Screen Not Detected (NotDetected) Urine Methadone Screen Not Detected (NotDetected) Ur Propoxyphene Screen Not Detected (NotDetected) Ur Barbiturates Screen Not Detected (NotDetected) U Tricyclic Antidepress Not Detected (NotDetected) Ur Phencyclidine Scrn Not Detected (NotDetected) Ur Amphetamines Screen Not Detected (NotDetected) U Methamphetamines Scrn Not Detected (NotDetected) U Benzodiazepines Scrn Not Detected (NotDetected) Urine Cocaine Screen Not Detected (NotDetected) U Marijuana (THC) Screen Detected H (NotDetected) - Radiology Data CT abdomen/pelvis with IV contrast: No evidence for acute abdominal process. Disposition Clinical Impression: Nausea and vomiting, Abdominal pain Disposition: HOME SELF-CARE Condition: Stable Instructions (If sedation given, give patient instructions): Acute Nausea and Vomiting (ED), Abdominal Pain (ED) Additional Instructions: Return to the ER immediately should you develop new or worsening pain, persistent vomiting, a fever, feeling dizzy or faint, shortness of breath, or new or worsening symptoms. Follow up closely with your primary care provider. Is patient prescribed a controlled substance at d/c from ED?: No Referrals: Alex Guo MD [Primary Care Provider] - 1-2 days Time of Disposition: 21:11
[2023-01-30] MEDS ORDERED: SODIUM CHLORIDE 0.9% 1,000 ML IV STA (18:02)
[2023-01-30] MEDS ORDERED: ONDANSETRON 4 MG/2 ML VIAL IVP STA (18:02)
[2023-01-30] MEDS ORDERED: MORPHINE SULFATE 4 MG/ML SYRINGE IV STA (18:02)
[2023-01-30 19:06] LABS: Basophils % (A) 0 %; Eosinophils # (A) 0.1 k/uL (0-0.7); Eosinophils % (A) 1 %; HGB 18.2 gm/dL (13.0-17.5); Lymphocytes # (A) 3.9 k/uL (1.0-4.8); Lymphocytes % (A) 21 %; MCH 26.8 pg (25.0-35.0); MCHC 33.6 g/dL (31.0-37.0); MCV 79.8 fL (80.0-100.0); Mean Platelet Volume 7.4; Monocytes # (A) 0.8 k/uL (0-1.0); Monocytes % (A) 4 %; Neutrophils % (A) 74 %; Platelet Count 236 k/uL (150-450); RBC 6.77 m/uL (4.30-5.90)
[2023-01-30 19:10] LABS: Appearance,Urine Clear (Clear); Bilirubin,Urine Negative (Negative); Blood,Urine Negative (Negative); Color,Urine Light Yellow; Glucose,Urine (UA) Negative (Negative); Ketones,Urine Negative (Negative); Leukocyte Esterase,Urine Negative (Negative); Nitrite,Urine Negative (Negative); PH, Urine 7.5 (5.0-8.0); Protein,Urine Negative (Negative); Urobilinogen,Urine <2.0 mg/dL (<2.0)
[2023-01-30 19:14] LABS: ALT 44 U/L (4-49); AST 23 U/L (17-59); African American GFR (CKD) >90 (>60 ml/min/1.73 sqM); Albumin 4.6 g/dL (3.5-5.0); Alkaline Phosphatase 61 U/L (38-126); Anion Gap 16 mmol/L; Blood Urea Nitrogen 19 mg/dL (9-20); Calcium 10.5 mg/dL (8.4-10.2); Carbon Dioxide 20 mmol/L (22-30); Chloride 98 mmol/L (98-107); Glucose 105 mg/dL (74-99); Lipase 122 U/L (23-300); Non-African American GFR(CKD) >90 (>60 ml/min/1.73 sqM); Potassium 4.3 mmol/L (3.5-5.1); Sodium 134 mmol/L (137-145); Total Bilirubin 1.2 mg/dL (0.2-1.3); Total Protein 7.6 g/dL (6.3-8.2)
[2023-01-30 19:31] LABS: Amphetamine Screen,Urine Not Detected (NotDetected); Barbiturate Screen,Urine Not Detected (NotDetected); Benzodiazepines Screen,Urine Not Detected (NotDetected); Cocaine Screen,Urine Not Detected (NotDetected); Methadone Screen, Urine Not Detected (NotDetected); Opiate Screen,Urine Not Detected (NotDetected); Oxycodone Screen, Urine Not Detected (NotDetected); Phencyclidine Screen,Urine Not Detected (NotDetected); Tricyclic Antidepressant,Urine Not Detected (NotDetected); Urn Cannabinoid Scrn Detected (NotDetected)
[2023-01-30] MEDS ORDERED: SODIUM CHLORIDE 0.9% 1,000 ML IV ONE (20:33)
--- NOTE | 2023-01-30 20:39 | CT ---
EXAMINATION TYPE: CT abdomen pelvis w con CT DLP: 2150.8 mGycm, Automated exposure control for dose reduction was used. DATE OF EXAM: 01/30/2023 8:06 PM COMPARISON: 01/13/2023 CLINICAL INDICATION:Male, 37 years old with history of abdominal pain, vomiting; abdominal pain, naus ea and vomiting. TECHNIQUE: Axial CT of the ;CT abdomen pelvis w con;Sagittal and coronal reformats were created on a separate workstation. Contrast used:80 cc mL of Isovue 300 with IV Contrast, (none if empty) Oral contrast used: without Oral Contrast (none if empty) FINDINGS: LOWER CHEST: Unremarkable ABDOMEN LIVER: Unremarkable GALLBLADDER AND BILE DUCTS: Unremarkable. PANCREAS: Unremarkable. SPLEEN: Unremarkable. ADRENAL GLANDS: Unremarkable. KIDNEYS AND URETERS: No evidence of hydronephrosis or renal calculus. The ureters are unremarkable. PELVIS BLADDER: Unremarkable REPRODUCTIVE: Unremarkable. ABDOMEN & PELVIS STOMACH AND BOWEL: No evidence of bowel obstruction. PERITONEUM/RETROPERITONEUM: No evidence of pneumoperitoneum or free fluid. VASCULATURE: No evidence of aortic aneurysm. MUSCULOSKELETAL: No acute osseous abnormalities LYMPH NODES: No gross evidence for lymphadenopathy. SOFT TISSUE/ABDOMINAL WALL: Fat-containing umbilical hernia. Bilateral fat-containing inguinal hernia s. IMPRESSION: No evidence for acute abdominal process.
[2023-01-30 21:45] VITALS: BP 160/90; PULSE 95; RESP 19
== END 2023-01-30 21:44 | disposition home or self-care (01) ==
LOC: EC 17:23
DX: R10.84 Generalized abdominal pain (principal); R11.2 Nausea with vomiting, unspecified; D72.829 Elevated white blood cell count, unspecified; I10 Essential (primary) hypertension; Z86.73 Personal history of transient ischemic attack (TIA), and cerebral infarction without residual deficits
CPT/HCPCS: 36415; 80053; 83690; 85025; 81003; 80306; 74177; 99284; 96374; 96375; 96361 ×2; J2270; J2405; Q9967

== ENCOUNTER 2023-02-22 13:13 | Emergency (ER) | payer OTHER ==
[2023-02-22] MEDS ORDERED: SODIUM CHLORIDE 0.9% 500 ML 500 ML IV STA (13:33)
[2023-02-22] MEDS ORDERED: SODIUM CHLORIDE 0.9% 1,000 ML IV STA (13:33)
[2023-02-22] MEDS ORDERED: PANTOPRAZOLE 40 MG/10 ML VIAL IVP STA (13:33)
[2023-02-22 13:34] VITALS: RESP 18
--- NOTE | 2023-02-22 13:40 | ED ---
General Adult HPI - General Chief complaint: GI Bleed Stated complaint: vomiting Time Seen by Provider: 02/22/23 13:26 Source: patient, family, RN notes reviewed, old records reviewed Mode of arrival: wheelchair Limitations: no limitations - History of Present Illness Initial comments: This is a 37-year-old male who presents emergency Department stating to 3 doses ago he started getting very dizzy and lightheaded he's had some dark red stools. Patient states she was recently on antibiotics in January but he is no longer taking. Patient takes them for multiple sclerosis. Patient denies any abdominal pain. Patient states he does feel short of breath and extremely fatigued and dizzy if he stands. Patient denies any chest pain. Patient denies palpitations. Patient denies any history of similar. Patient denies any history of ulcers colitis. - Related Data Home Medications Medication Instructions Recorded Confirmed predniSONE See Taper PO DAILY 01/23/23 01/30/23 L.idocaine 5% Patch [Lidoderm 5% 1 patch TRANSDERM DAILY PRN 01/30/23 01/30/23 Patch] tiZANidine [Zanaflex] 4 mg PO TID PRN 01/30/23 01/30/23 Previous Rx's Medication Instructions Recorded Atorvastatin [Lipitor] 40 mg PO DAILY 30 Days #30 tab 01/21/23 Cyanocobalamin [Vitamin B-12] 500 mcg PO DAILY 30 Days #30 tab 01/21/23 Ketorolac [Toradol] 10 mg PO Q6HR PRN #15 tab 01/23/23 Ondansetron Odt [Zofran Odt] 4 mg PO Q8HR PRN #20 tab 01/23/23 Allergies Allergy/AdvReac Type Severity Reaction Status Date / Time No Known Allergies Allergy Verified 02/22/23 13:22 Review of Systems ROS Statement: Those systems with pertinent positive or pertinent negative responses have been documented in the HPI. ROS Other: All systems not noted in ROS Statement are negative. Past Medical History Past Medical History: CVA/TIA, Hypertension History of Any Multi-Drug Resistant Organisms: None Reported Past Surgical History: No Surgical Hx Reported Past Psychological History: No Psychological Hx Reported Smoking Status: Never smoker Past Alcohol Use History: None Reported Past Drug Use History: None Reported - Past Family History Father Family Medical History: Coronary Artery Disease (CAD), CVA/TIA General Exam - General Exam Comments Initial Comments: GENERAL: Patient is well-developed and well-nourished. Patient is nontoxic and well- hydrated and is in moderate distress. ENT: Neck is soft and supple. No significant lymphadenopathy is noted. Oropharynx is clear. Moist mucous membranes. Neck has full range of motion without eliciting any pain. There is no thyroid enlargement and no masses were felt. EYES: The sclera were anicteric and conjunctiva are pale. Extraocular movements were intact and pupils were equal round and reactive to light. Eyelids were unrema rkable. PULMONARY: Unlabored respirations. Good breath sounds bilaterally. No audible rales rhonc hi or wheezing was noted. CARDIOVASCULAR: Patient is tachycardic ABDOMEN: Soft and nontender with normal bowel sounds. SKIN: Patient's skin is pale. NEUROLOGIC: Patient is alert and oriented x3. Cranial nerves II through XII are grossly intact. Motor and sensory are also intact. Normal speech, volume and content. Symmetrical smile. MUSCULOSKELETAL: Normal extremities with adequate strength and full range of motion. No lower extremity swelling or edema. No calf tenderness. LYMPHATICS: No significant lymphadenopathy is noted PSYCHIATRIC: Normal psychiatric evaluation. Limitations: no limitations Course Vital Signs 02/22/23 02/22/23 02/22/23 13:19 14:42 15:04 Temperature 98.7 F Pulse Rate 165 H 137 H 140 H Respiratory 18 18 18 Rate Blood Pressure 104/71 133/107 O2 Sat by Pulse 100 96 100 Oximetry 02/22/23 02/22/23 02/22/23 15:14 15:23 16:00 Temperature 99.3 F 98.3 F Pulse Rate 135 H 134 H 135 H Respiratory 18 18 18 Rate Blood Pressure 133/69 123/68 117/70 O2 Sat by Pulse 100 98 Oximetry Medical Decision Making - Medical Decision Making EKG is interpreted by myself. EKG shows sinus tachycardia at 153 bpm HI interval 202 QRS is 84 QT interval is 279 QTC is 366. Was pt. sent in by a medical professional or institution (, [facility], C[employer], urgent care, hospital, or shelter...) When possible be specific @ -No Did you speak to anyone other than the patient for history (EMS, parent, family, police, friend...)? What history was obtained from this source @ -No Did you review nursing and triage notes (agree or disagree)? Why? @ -I reviewed and agree with nursing and triage notes Were old charts reviewed (outside hosp., previous admission, EMS record, old EKG, old radiological studies, urgent care reports/EKG's, shelter records)? Report findings @ -No old charts were reviewed Differential Diagnosis (chest pain, altered mental status, abdominal pain women, abdominal pain men, vaginal bleeding, weakness, fever, dyspnea, syncope, headache, dizziness, GI bleed, back pain, seizure, CVA, palpatations, mental health, musculoskeletal)? @ -Differential GI Bleed: Esophageal varices, aortoenteric fistula, Sheryl-Darby, gastritis, peptic ulcer disease, diverticulosis, inflammatory bowel disease, hemorrhoids, fissure, colitis, malignancy, Meckels diverticulum, this is not meant to be an all- inclusive list. EKG interpreted by me (3pts min.). @ -As above X-rays interpreted by me (1pt min.). @ -Chest x-ray shows no acute abnormality CT interpreted by me (1pt min.). @ -CT of abdomen and pelvis shows no acute abnormality U/S interpreted by me (1pt. min.). @ -None done What testing was considered but not performed or refused? (CT, X-rays, U/S, labs)? Why? @ -None What meds were considered but not given or refused? Why? @ -None Did you discuss the management of the patient with other professionals (professionals i.e. ., PA, CORE CLEANER, lab, RT, psych nurse, hospice social worker, carbon brusher assembler, teacher, executive vice president and chief financial officer, case operator)? Give summary @ -I spoke with the GI doctor Dr. Bridges at [facility] and she accepted the patient. Spoke with the ER doctor and they accepted the patient as well. Was smoking cessation discussed for >3mins.? @ -No Was critical care preformed (if so, how long)? @ -35 minutes Were there social determinants of health that impacted care today? How? (Homelessness, low income, unemployed, alcoholism, drug addiction, transportation, low edu. Level, literacy, decrease access to med. care, intermediate, rehab)? @ -No Was there de-escalation of care discussed even if they declined (Discuss DNR or withdrawal of care, Hospice)? DNR status @ -No What co-morbidities impacted this encounter? (DM, HTN, Smoking, COPD, CAD, Cancer, CVA, ARF, Chemo, Hep., AIDS, mental health diagnosis, sleep apnea, morbid obesity)? @ -None Was patient admitted / discharged? Hospital course, mention meds given and route , prescriptions, significant lab abnormalities, going to OR and other pertinent info. @ -Upon initial examination on the patient I ordered 1 unit of packed blood cells immediately and a liter and half of fluid. Patient had 2 large-bore IVs started. Patient's lab work started to come back and showed hemoglobin 6.2 white count of 42,000 CO2 of 19 lactic acid 13.2. Because of the highway, did give the patient a dose of Zosyn even though had no source of infection. Chest x-ray showed no acute abnormality. Computed tomography scan of the abdomen and pelvis showed no acute abnormality. I spoke with [facility]'s GI doctor and he or the patient be transferred to their facility Undiagnosed new problem with uncertain prognosis? @ -No Drug Therapy requiring intensive monitoring for toxicity (Heparin, Nitro, I nsulin, Cardizem)? @ -No Were any procedures done? @ -No Diagnosis/symptom? @ -GI bleed Acute, or Chronic, or Acute on Chronic? @ -Acute Uncomplicated (without systemic symptoms) or Complicated (systemic symptoms)? @ -Complicated Side effects of treatment? @ -No Exacerbation, Progression, or Severe Exacerbation? @ -No Poses a threat to life or bodily function? How? (Chest pain, [place], [place], pneumonia, PE, COPD, DKA, ARF, appy, cholecystitis, CVA, Diverticulitis, Homicidal, Suicidal, threat to staff... and all critical care pts) @ -Yes this can lead to severe anemia hypoxia and end organ dysfunction Diagnosis/symptom? @ -Leukocytosis Acute, or Chronic, or Acute on Chronic? @ -Acute Uncomplicated (without systemic symptoms) or Complicated (systemic symptoms)? @ -Complicated Side effects of treatment? @ -none Exacerbation, Progression, or Severe Exacerbation] @ -no Poses a threat to life or bodily function? @ -no - Lab Data Result diagrams: 02/22/23 13:38 02/22/23 13:38 Lab Results 12/03/23 12/03/23 12/03/23 Range/Units 13:30 13:35 13:38 WBC 41.8 H (3.8-10.6) k/uL RBC 2.24 L (4.30-5.90) m/uL Hgb 6.2 L* D (13.0-17.5) gm/dL Hct 20.0 L (39.0-53.0) % MCV 89.4 D (80.0-100.0) fL MCH 27.7 (25.0-35.0) pg MCHC 30.9 L (31.0-37.0) g/dL RDW 19.3 H (11.5-15.5) % Plt Count 363 (150-450) k/uL MPV 9.4 Neutrophils % (Manual) 74 % Band Neuts % (Manual) 2 % Lymphocytes % (Manual) 18 % Monocytes % (Manual) 6 % Metamyelocytes % 1 % Myelocytes % 2 % Neutrophils # (Manual) 31.70 H (1.3-7.7) k/uL Lymphocytes # (Manual) 7.52 H (1.0-4.8) k/uL Monocytes # (Manual) 2.51 H (0-1.0) k/uL Metamyelocytes # (Man) 0.42 H (0) k/uL Myelocytes # (Manual) 0.84 H (0) k/uL Nucleated RBCs 2 H (0-0) /100 WBC Manual Slide Review Performed Polychromasia Present Hypochromasia Marked Poikilocytosis Slight Anisocytosis Slight PT (10.0-12.5) sec INR (<1.2) APTT (22.0-30.0) sec Sodium (137-145) mmol/L Potassium (3.5-5.1) mmol/L Chloride (98-107) mmol/L Carbon Dioxide (22-30) mmol/L Anion Gap mmol/L BUN (9-20) mg/dL Creatinine (0.66-1.25) mg/dL Est GFR (CKD-EPI)AfAm (>60 ml/min/1.73 sqM) Est GFR (CKD-EPI)NonAf (>60 ml/min/1.73 sqM) Glucose (74-99) mg/dL Plasma Lactic Acid Kush (0.7-2.0) mmol/L Calcium (8.4-10.2) mg/dL Total Bilirubin (0.2-1.3) mg/dL AST (17-59) U/L ALT (4-49) U/L Alkaline Phosphatase (38-126) U/L Troponin I (0.000-0.034) ng/mL Total Protein (6.3-8.2) g/dL Albumin (3.5-5.0) g/dL Blood Type O Positive Blood Type Confirm O Positive Blood Type Recheck No Previous Record Bld Type Recheck Status CABO Indicated Antibody Screen NEGATIVE Crossmatch See Detail Spec Expiration Date 02/25/2023 - 232902/22/23 02/22/23 02/22/23 Range/Units 13:38 13:38 13:38 WBC (3.8-10.6) k/uL RBC (4.30-5.90) m/uL Hgb (13.0-17.5) gm/dL Hct (39.0-53.0) % MCV (80.0-100.0) fL MCH (25.0-35.0) pg MCHC (31.0-37.0) g/dL RDW (11.5-15.5) % Plt Count (150-450) k/uL MPV Neutrophils % (Manual) % Band Neuts % (Manual) % Lymphocytes % (Manual) % Monocytes % (Manual) % Metamyelocytes % % Myelocytes % % Neutrophils # (Manual) (1.3-7.7) k/uL Lymphocytes # (Manual) (1.0-4.8) k/uL Monocytes # (Manual) (0-1.0) k/uL Metamyelocytes # (Man) (0) k/uL Myelocytes # (Manual) (0) k/uL Nucleated RBCs (0-0) /100 WBC Manual Slide Review Polychromasia Hypochromasia Poikilocytosis Anisocytosis PT 10.4 (10.0-12.5) sec INR 0.9 (<1.2) APTT 21.3 L (22.0-30.0) sec Sodium 135 L (137-145) mmol/L Potassium 4.3 (3.5-5.1) mmol/L Chloride 101 (98-107) mmol/L Carbon Dioxide 9 L* (22-30) mmol/L Anion Gap 25 mmol/L BUN 23 H (9-20) mg/dL Creatinine 1.04 (0.66-1.25) mg/dL Est GFR (CKD-EPI)AfAm >90 (>60 ml/min/1.73 sqM) Est GFR (CKD-EPI)NonAf >90 (>60 ml/min/1.73 sqM) Glucose 269 H (74-99) mg/dL Plasma Lactic Acid Kush 13.2 H* (0.7-2.0) mmol/L Calcium 8.5 (8.4-10.2) mg/dL Total Bilirubin 0.3 (0.2-1.3) mg/dL AST 32 (17-59) U/L ALT 46 (4-49) U/L Alkaline Phosphatase 49 (38-126) U/L Troponin I (0.000-0.034) ng/mL Total Protein 5.6 L (6.3-8.2) g/dL Albumin 3.3 L (3.5-5.0) g/dL Blood Type Blood Type Confirm Blood Type Recheck Bld Type Recheck Status Antibody Screen Crossmatch Spec Expiration Date 02/22/23 Range/Units 13:38 WBC (3.8-10.6) k/uL RBC (4.30-5.90) m/uL Hgb (13.0-17.5) gm/dL Hct (39.0-53.0) % MCV (80.0-100.0) fL MCH (25.0-35.0) pg MCHC (31.0-37.0) g/dL RDW (11.5-15.5) % Plt Count (150-450) k/uL MPV Neutrophils % (Manual) % Band Neuts % (Manual) % Lymphocytes % (Manual) % Monocytes % (Manual) % Metamyelocytes % % Myelocytes % % Neutrophils # (Manual) (1.3-7.7) k/uL Lymphocytes # (Manual) (1.0-4.8) k/uL Monocytes # (Manual) (0-1.0) k/uL Metamyelocytes # (Man) (0) k/uL Myelocytes # (Manual) (0) k/uL Nucleated RBCs (0-0) /100 WBC Manual Slide Review Polychromasia Hypochromasia Poikilocytosis Anisocytosis PT (10.0-12.5) sec INR (<1.2) APTT (22.0-30.0) sec Sodium (137-145) mmol/L Potassium (3.5-5.1) mmol/L Chloride (98-107) mmol/L Carbon Dioxide (22-30) mmol/L Anion Gap mmol/L BUN (9-20) mg/dL Creatinine (0.66-1.25) mg/dL Est GFR (CKD-EPI)AfAm (>60 ml/min/1.73 sqM) Est GFR (CKD-EPI)NonAf (>60 ml/min/1.73 sqM) Glucose (74-99) mg/dL Plasma Lactic Acid Kush (0.7-2.0) mmol/L Calcium (8.4-10.2) mg/dL Total Bilirubin (0.2-1.3) mg/dL AST (17-59) U/L ALT (4-49) U/L Alkaline Phosphatase (38-126) U/L Troponin I 0.060 H* (0.000-0.034) ng/mL Total Protein (6.3-8.2) g/dL Albumin (3.5-5.0) g/dL Blood Type Blood Type Confirm Blood Type Recheck Bld Type Recheck Status Antibody Screen Crossmatch Spec Expiration Date Critical Care Time Critical Care Time: Yes Total Critical Care Time: 35 Disposition Clinical Impression: GI bleed, Lactic acidosis, Leukocytosis Disposition: OTHER INSTITUTION NOT DEFINED Is patient prescribed a controlled substance at d/c from ED?: No Referrals: Alex Guo MD [Primary Care Provider] - 1-2 days Time of Disposition: 16:12 - Out of Hospital Transfer - Req. Specs Out of Hospital Transfer - Requested Specifics: Other Emergency Center ([facility]
[2023-02-22] MEDS ORDERED: ONDANSETRON 4 MG/2 ML VIAL IVP STA ×2 (13:49→16:52)
[2023-02-22 13:58] LABS: Anisocytosis Slight; Hypochromasia Marked; MCH 27.7 pg (25.0-35.0); MCHC 30.9 g/dL (31.0-37.0); MCV 89.4 fL (80.0-100.0); Mean Platelet Volume 9.4; Platelet Count 363 k/uL (150-450); Poikilocytosis Slight; RBC 2.24 m/uL (4.30-5.90); RDW 19.3 % (11.5-15.5)
[2023-02-22 14:04] LABS: HGB 6.2 gm/dL (13.0-17.5)
[2023-02-22 14:12] LABS: INR 0.9 (<1.2); Prothrombin Time 10.4 sec (10.0-12.5)
[2023-02-22 14:23] LABS: AST 32 U/L (17-59); African American GFR (CKD) >90 (>60 ml/min/1.73 sqM); Albumin 3.3 g/dL (3.5-5.0); Alkaline Phosphatase 49 U/L (38-126); Anion Gap 25 mmol/L; Blood Urea Nitrogen 23 mg/dL (9-20); Calcium 8.5 mg/dL (8.4-10.2); Chloride 101 mmol/L (98-107); Glucose 269 mg/dL (74-99); Non-African American GFR(CKD) >90 (>60 ml/min/1.73 sqM); Potassium 4.3 mmol/L (3.5-5.1); Sodium 135 mmol/L (137-145); Total Bilirubin 0.3 mg/dL (0.2-1.3); Total Protein 5.6 g/dL (6.3-8.2)
[2023-02-22 14:30] LABS: Partial Thromboplastin Time 21.3 sec (22.0-30.0)
[2023-02-22 14:34] LABS: ALT 46 U/L (4-49); Carbon Dioxide 9 mmol/L (22-30)
[2023-02-22 15:10] LABS: Band Neutrophils % 2 %; Metamyelocytes % 1 %; Myelocytes % 2 %; Neutrophils % (M) 74 %; Nucleated Red Blood Cells 2 /100 WBC (0-0); Total Cells Counted 200
[2023-02-22 15:11] LABS: Lymphocytes # (M) 7.52 k/uL (1.0-4.8); Metamyelocytes # (M) 0.42 k/uL (0); Monocytes # (M) 2.51 k/uL (0-1.0); Myelocytes # (M) 0.84 k/uL (0); Polychromasia Present; WBC 41.8 k/uL (3.8-10.6)
--- NOTE | 2023-02-22 15:30 | CT ---
EXAMINATION TYPE: CT angio abdomen pelvis CT DLP: 4798.8 mGycm, Automated exposure control for dose reduction was used. DATE OF EXAM: 02/22/2023 3:19 PM COMPARISON: CT abdomen 01/30/2023. . CLINICAL INDICATION:Male, 37 years old with history of Abdominal pain; PHH, abdominal pain, blood in stool and septic. TECHNIQUE: Multiple thin slice sub-millimeter images were obtained after administration of contrast. 3-D reconstructed images and maximum intensity projection images were obtained. CT angio abdomen pel vis CT Contrast: Contrast used:100ml mL of Isovue 370 without and with IV Contrast, Oral contrast used: without Oral Contrast None FINDINGS: CTA Abdomen and pelvis: The abdominal aorta does not demonstrate aneurysmal dilatation. No significa nt atherosclerotic disease is identified. The origins of the superior mesenteric artery, renal arter ies, inferior mesenteric artery, and celiac axis are patent. The iliac vessels are normal in morphol ogy LOWER CHEST: No evidence of focal consolidation, pneumothorax or pleural effusion. LIVER: Unremarkable GALLBLADDER AND BILE DUCTS: Unremarkable. PANCREAS: Unremarkable. SPLEEN: Unremarkable. ADRENAL GLANDS: Unremarkable. KIDNEYS AND URETERS: No evidence of hydronephrosis or renal calculus. The ureters are unremarkable. PELVIS BLADDER: Unremarkable REPRODUCTIVE: Unremarkable. ABDOMEN & PELVIS STOMACH AND BOWEL: Stomach and duodenum are unremarkable. No evidence of contrast within the bowel sierra men to suggest GI bleed. The appendix is unremarkable No evidence of bowel obstruction. PERITONEUM: No evidence of pneumoperitoneum or free fluid. MUSCULOSKELETAL: No acute osseous abnormalities LYMPH NODES: No gross evidence for lymphadenopathy. SOFT TISSUE/ABDOMINAL WALL: Unremarkable IMPRESSION No evidence of acute intra-abdominal process or evidence to suggest active GI bleed.
[2023-02-22] MEDS ORDERED: PIPERACILLIN-TAZOBACTAM 3.375 GM in SODIUM CHLORIDE 0.9% 100 ML IVPB STA (15:34)
--- NOTE | 2023-02-22 16:07 | XR ---
EXAMINATION TYPE: XR chest 1V DATE OF EXAM: 02/22/2023 3:47 PM CLINICAL INDICATION:Male, 37 years old with history of Difficulty breathing ; [facility] COMPARISON: Chest radiograph 01/10/2023. TECHNIQUE: XR chest 1V Frontal view of the chest. FINDINGS: Lungs/Pleura: There is no evidence of pleural effusion, focal consolidation, or pneumothorax. Pulmonary vascularity: Unremarkable. Heart/mediastinum: Cardiomediastinal silhouette is unremarkable. Musculoskeletal: No acute osseous pathology. IMPRESSION: No acute cardiopulmonary disease/process.
[2023-02-22 16:13] LABS: VBG PH 7.34 (7.31-7.41)
[2023-02-22 16:26] VITALS: PULSE 129; TEMP 98.7
[2023-02-22 17:09] VITALS: BP 138/86
== END 2023-02-22 17:01 | disposition other institution (70) ==
LOC: EC 13:13
DX: K92.2 Gastrointestinal hemorrhage, unspecified (principal); D72.829 Elevated white blood cell count, unspecified; E87.20 Acidosis, unspecified; I10 Essential (primary) hypertension
CPT/HCPCS: 99291 ×2; 96365 ×2; 96375 ×4; 96361 ×2; 36415; 93005; 86900; 86901; 80053; 82803; 83605; 84484; 85025; 85610; 85730; 86850; 86920; 82271; 87040; 71045; 74174; 36430; P9016; J2543; J2405; C9113; Q9967

== ENCOUNTER → 2023-03-02 | Outpatient (CLI) | payer OTHER ==
[2023-03-02 15:59] LABS: Basophils # (A) 0.02 X 10*3/uL (0.00-0.10); Basophils % (A) 0.2 %; Eosinophils # (A) 0.13 X 10*3/uL (0.04-0.35); Eosinophils % (A) 1.3 %; HCT 28.5 % (39.6-50.0); HGB 8.6 g/dL (13.0-17.0); Lymphocytes # (A) 2.33 X 10*3/uL (0.90-5.00); Lymphocytes % (A) 22.6 %; MCH 27.5 pg (27.0-32.0); MCHC 30.2 g/dL (32.0-37.0); MCV 91.1 FL (80.0-97.0); Mean Platelet Volume 10.2 FL (9.5-12.2); Monocytes % (A) 6.8 %; NRBC Per 100 WBC 0 X 10*3/uL (0.00-0.01); Neutrophils # (A) 6.88 X 10*3/uL (1.80-7.70); Neutrophils % (A) 66.7 %; Platelet Count 342 X 10*3/uL (140-440); RBC 3.13 X 10*6/uL (4.40-5.60); RDW 16.7 % (11.5-14.5); WBC 10.31 X 10*3/uL (4.50-10.00)
[2023-03-02 16:40] LABS: % Iron Saturation 6.01 (15.00-50.00)
== END | disposition home or self-care (01) ==
LOC: LABWHC1 10:18
PROVIDERS: ATTEND Internal Medicine
DX: K92.2 Gastrointestinal hemorrhage, unspecified (principal); R10.9 Unspecified abdominal pain; R73.9 Hyperglycemia, unspecified
CPT/HCPCS: 36415; 82947; 83036; 83540; 83550; 85025